=== PATIENT | male | born 1960 | race Caucasian/White ===

== ENCOUNTER → 2017-04-15 17:12 | Outpatient (CLI) | payer MEDICARE, MEDICAID, SELFPAY ==
[2017-04-15 18:45] LABS: Thyroid Stim Hormone (TSH) 4.71 uIU/mL (0.358-3.74)
== END ==
PROVIDERS: Family Provider Family Medicine Geriatric Medicine; PCP Family Medicine Geriatric Medicine; Visit Provider Family Medicine Geriatric Medicine
DX: E03.9 Hypothyroidism, unspecified (principal)
CPT/HCPCS: 36415; 84443

== ENCOUNTER → 2017-07-07 16:24 | Outpatient (CLI) | payer MEDICARE, MEDICAID, SELFPAY ==
[2017-07-07 18:01] LABS: Thyroid Stim Hormone (TSH) 1.25 uIU/mL (0.358-3.74)
== END ==
PROVIDERS: Family Provider Family Medicine Geriatric Medicine; PCP Family Medicine Geriatric Medicine; Visit Provider Family Medicine Geriatric Medicine
DX: E03.9 Hypothyroidism, unspecified (principal)
CPT/HCPCS: 36415; 84443

== ENCOUNTER → 2017-09-15 17:55 | Outpatient (CLI) | payer MEDICARE, MEDICAID, SELFPAY ==
[2017-09-15 18:02] LABS: Absolute Lymphocyte Count 2.25 X10^3/ul (0.83-4.51); Absolute Neutrophil Count 1.4 X10^3/uL (2.0-7.7); Basophil# 0.05 X10^3/uL; Basophil% 1.1 % (0-1); Eosinophil# 0.12 X10^3/uL; Eosinophils% 2.6 % (0-5); Hematocrit 43.3 % (40-54); Hemoglobin 14.9 g/dl (13.0-16.5); Lymphocyte # 2.25 X10^3/ul (4.0); Lymphocyte % 48.6 % (19-41); Mean Corp Hgb Conc 34.4 g/gl (32-36); Mean Corpuscular Hgb 37.7 pg (27.0-32.0); Mean Corpuscular Volume 109.6 fL (80-94); Mean Platelet Vol. 11.8 fl (6.2-12.0); Monocyte# 0.75 X10^3/uL; Monocyte% 16.2 % (0-10); Neutrophil # 1.44 X10^3/uL (2.7-7.7); Neutrophil % 31.1 % (47-70); Platelet Count 170 K/mm3 (150-450); RBC Distribution Width CV 13.7 % (11.6-14.6); RBC Distribution Width SD 54.3 fl (35.1-43.9); Red Blood Count 3.95 M/mm3 (4.6-6.2); White Blood Count 4.6 K/mm3 (4.4-11.0)
[2017-09-15 18:18] LABS: POSITIVE COUNT NO; POSITIVE DIFFERENTIAL NO; POSITIVE MORPHOLOGY NO
[2017-09-15 18:45] LABS: Valproic Acid (Depakene) Level 65 ug/mL (50-100)
[2017-09-15 18:54] LABS: ALB/GLOB Ratio 0.6 RATIO (0.9-2.4); AST(SGOT) 29 U/L (15-37); Alanine Aminotransfer ALT/SGPT 29 U/L (16-61); Albumin, Serum 2.9 g/dL (3.2-5.0); Alkaline Phosphatase 85 U/L (45-117); Anion Gap 5 (5-15); BUN 13 mg/dL (7-18); Calcium,Total 8.5 mg/dL (8.5-10.1); Chloride 103 mmol/L (98-107); Creatinine, Serum 0.81 mg/dL (0.70-1.30); EST Glomerular Filtration Rate 105 mL/min (>60); Est Glom Filt Rate - Afr Amer 127 mL/min (>60); Globulin 5.1 g/dL (2.2-4.2); Glucose 80 mg/dL (74-106); Potassium 4.5 mmol/L (3.5-5.1); Sodium Level 140 mmol/L (136-145); Thyroid Stim Hormone (TSH) 1.08 uIU/mL (0.358-3.74)
== END ==
PROVIDERS: Family Provider Family Medicine Geriatric Medicine; PCP Family Medicine Geriatric Medicine; Visit Provider Family Medicine Geriatric Medicine
DX: R53.83 Other fatigue (principal); F91.9 Conduct disorder, unspecified; N39.0 Urinary tract infection, site not specified
CPT/HCPCS: 36415; 80053; 80164; 84443; 85025; 87086

== ENCOUNTER → 2017-10-14 14:22 | Outpatient (CLI) | payer MEDICARE, MEDICAID, SELFPAY ==
[2017-10-14 17:40] LABS: Anion Gap 11 (5-15); BUN 12 mg/dL (7-18); BUN/Creat Ratio 15.6 RATIO (10-20); Calcium,Total 8.8 mg/dL (8.5-10.1); Chloride 104 mmol/L (98-107); Creatinine, Serum 0.77 mg/dL (0.70-1.30); EST Glomerular Filtration Rate 111 mL/min (>60); Est Glom Filt Rate - Afr Amer 135 mL/min (>60); Glucose 81 mg/dL (74-106); Potassium 4.2 mmol/L (3.5-5.1); Sodium Level 141 mmol/L (136-145)
[2017-10-14 19:38] LABS: Absolute Lymphocyte Count 2.01 X10^3/ul (0.83-4.51); Absolute Neutrophil Count 1.8 X10^3/uL (2.0-7.7); Basophil# 0.05 X10^3/uL; Basophil% 1.1 % (0-1); Eosinophil# 0.16 X10^3/uL; Eosinophils% 3.5 % (0-5); Hematocrit 42.5 % (40-54); Hemoglobin 14.3 g/dl (13.0-16.5); Lymphocyte # 2.01 X10^3/ul (4.0); Lymphocyte % 43.6 % (19-41); Mean Corp Hgb Conc 33.6 g/gl (32-36); Mean Corpuscular Hgb 37.7 pg (27.0-32.0); Mean Corpuscular Volume 112.1 fL (80-94); Mean Platelet Vol. 12.9 fl (6.2-12.0); Monocyte# 0.59 X10^3/uL; Monocyte% 12.8 % (0-10); Neutrophil # 1.76 X10^3/uL (2.7-7.7); Neutrophil % 38.1 % (47-70); Platelet Count 214 K/mm3 (150-450); RBC Distribution Width CV 13.7 % (11.6-14.6); RBC Distribution Width SD 54.3 fl (35.1-43.9); Red Blood Count 3.79 M/mm3 (4.6-6.2); White Blood Count 4.6 K/mm3 (4.4-11.0)
[2017-10-14 19:48] LABS: POSITIVE COUNT NO; POSITIVE DIFFERENTIAL NO; POSITIVE MORPHOLOGY NO
== END ==
PROVIDERS: Family Provider Family Medicine Geriatric Medicine; PCP Family Medicine Geriatric Medicine; Visit Provider Family Medicine Geriatric Medicine
DX: E86.0 Dehydration (principal)
CPT/HCPCS: 36415; 80048; 85025

== ENCOUNTER 2017-10-15 12:39 | Emergency (ER) | payer MEDICARE, MEDICAID, SELFPAY ==
[2017-10-15 12:40] VITALS: BP 106/72; PULSE 73; RESP 18; TEMP 36.8; O2SAT 86; O2SAT 91; BMI 35.3
[2017-10-15 12:52] VITALS: O2SAT 93
[2017-10-15 13:02] VITALS: PULSE 71; RESP 20
[2017-10-15] MEDS: Ipratropium/Albuterol Sulfate 3 ML AMPUL.NEB INHALATION (13:02)
[2017-10-15] MEDS: 0.9% Normal Saline 1,000 ML 1000 ML IV (13:18)
[2017-10-15 13:21] LABS: Absolute Lymphocyte Count 2.55 X10^3/ul (0.83-4.51); Absolute Neutrophil Count 3.2 X10^3/uL (2.0-7.7); Basophil# 0.07 X10^3/uL; Basophil% 1.1 % (0-1); Eosinophil# 0.07 X10^3/uL; Eosinophils% 1.1 % (0-5); Hematocrit 45.5 % (40-54); Lymphocyte # 2.55 X10^3/ul (4.0); Lymphocyte % 39.2 % (19-41); Mean Corpuscular Hgb 36.9 pg (27.0-32.0); Mean Corpuscular Volume 112.1 fL (80-94); Mean Platelet Vol. 12.2 fl (6.2-12.0); Monocyte# 0.63 X10^3/uL; Monocyte% 9.7 % (0-10); Neutrophil # 3.17 X10^3/uL (2.7-7.7); Neutrophil % 48.6 % (47-70); Platelet Count 238 K/mm3 (150-450); RBC Distribution Width CV 13.6 % (11.6-14.6); RBC Distribution Width SD 55.9 fl (35.1-43.9); Red Blood Count 4.06 M/mm3 (4.6-6.2); White Blood Count 6.5 K/mm3 (4.4-11.0)
[2017-10-15 13:26] LABS: POSITIVE COUNT NO; POSITIVE DIFFERENTIAL NO; POSITIVE MORPHOLOGY NO
[2017-10-15 13:34] LABS: ALB/GLOB Ratio 0.6 RATIO (0.9-2.4); AST(SGOT) 38 U/L (15-37); Alanine Aminotransfer ALT/SGPT 33 U/L (16-61); Alkaline Phosphatase 76 U/L (45-117); Anion Gap 5 (5-15); BUN 15 mg/dL (7-18); BUN/Creat Ratio 17.9 RATIO (10-20); Calcium,Total 9.2 mg/dL (8.5-10.1); Chloride 106 mmol/L (98-107); Creatinine, Serum 0.84 mg/dL (0.70-1.30); EST Glomerular Filtration Rate 101 mL/min (>60); Est Glom Filt Rate - Afr Amer 122 mL/min (>60); Globulin 5.4 g/dL (2.2-4.2); Glucose 90 mg/dL (74-106); Potassium 4.5 mmol/L (3.5-5.1); Protein, Total 8.4 g/dL (6.4-8.2); Sodium Level 145 mmol/L (136-145)
[2017-10-15 13:43] LABS: Squamous Epithelial Cells - UA 0 SEEN /hpf (0-5)
--- NOTE | 2017-10-15 13:50 | ED.VISSUMM ---
- ER Visit Summary Date of Service: 10/15/17 Chief Complaint: Cough, hypoxia History of Present Illness: The patient is a 57 M with history of Down syndrome and dementia presents to the emergency department with cough and hypoxia. The patient is currently at a assisted. The family states that he has been acting normally this week. They states that over the past 2 days, he has been a little more fatigued. Today, he was eating. He went to a coughing fit and seem to have choked. He then vomited. Shortly after, he was hypoxic with a pulse oxygenation in the mid 80s. He has no known history of underlying lung disease. He has no history of oxygen requirement. He is otherwise been acting normally. He has not had fever or chills. Physical Examination: Vital signs reviewed General: Well-nourished Head: Normocephalic, atraumatic Eyes: Pupils equal and reactive, extraocular muscles intact Neck, supple, no lymphadenopathy Heart: Regular rate and rhythm Respiratory: No distress, diminished with rhonchi in the bases Abdomen: Soft, nontender, nondistended, no peritoneal signs Back: Nontender Extremities: Nontender, no edema, no cords Skin: Normal color no rash Neuro: Alert, follows simple commands, will answer questions appropriately, Test Results: [] Emergency Department Course and Treatment: The patient was initially hypoxic on arrival requiring supplemental oxygen. He was given a nebulized breathing treatment. He was able to be weaned from the oxygen without issue. Screening labs are unremarkable. His x-ray does not show any focal infiltrate. I do have some suspicion he may likely have aspirated and has chemical pneumonitis. The patient was able to ambulate without an oxygen requirement. He is feeling at his baseline. At this time, I do feel that he is safe to be transferred back to his assisted. The family is comfortable with this plan of care. He will be kept on Augmentin for 7 days. Strict return precautions were given. The patient be discharged. Treatment Plan: [] Disposition: Discharge Impression: 1. Aspiration pneumonitis This note was generated with [employer] software. It may contain incorrect words, spelling, and punctuation that were not noted in review of the chart prior to signing ED Disposition - Plan for ED Patient: Chief Complaint: Cough Instructions: ED Dyspnea Shortness of Breath Prescriptions: Amox/Clav 400mg/5ml Susp [Augmentin Suspension 400mg/5ml] 800 mg PO BID #140 ml Referrals: Vijay Merritt Chi, MD [Primary Care Provider] -
[2017-10-15 13:59] LABS: Color, Urine Yellow (Yellow); Glucose, Dipstick Normal (Normal); Ketone-Dipstick 5 mg/dl (Negative); Leukocyte Esterase-Dipstick Negative /ul (Negative); Nitrite-Dipstick Negative (Negative); Occult Blood-Urine 25 /ul (Negative); Protein-Dipstick 15 mg/dl (Negative); Specific Gravity, Urine 1.015 (1.002-1.030); Urine Bilirubin Dipstick Negative (Negative); Urine Clarity Clear (Clear); Urine Urobilinogen 1 mg/dl (Normal); Urine pH 6.5 (5.0 - 8.0)
[2017-10-15 14:23] LABS: Bacteria 1+ /hpf (None Seen); Mucous, Urine 1+ /hpf (<or=2+); Red Blood Cells-Urine 5-10 SEEN /hpf (0-5); White Blood Cells 0-5 SEEN /hpf (0-5)
[2017-10-15 15:17] VITALS: BP 115/73; PULSE 98; RESP 18; O2SAT 96
[2017-10-15] MEDS: Amox/Clav 400mg/5ml Susp 800 MG PO (15:41)
[2017-10-15 16:16] VITALS: BP 118/80; PULSE 85; RESP 14; O2SAT 95
== END 2017-10-15 16:17 | disposition home or self-care (01) ==
PROVIDERS: Emergency Provider Emergency Medicine; Family Provider Family Medicine Geriatric Medicine; PCP Family Medicine Geriatric Medicine
DX: J69.0 Pneumonitis due to inhalation of food and vomit (principal); R09.02 Hypoxemia; F03.90 Unspecified dementia, unspecified severity, without behavioral disturbance, psychotic disturbance, mood disturbance, and anxiety; Q90.9 Down syndrome, unspecified; Z79.899 Other long term (current) drug therapy; Z87.891 Personal history of nicotine dependence
CPT/HCPCS: 71045; 80053; 81001; 83605; 85025; 87040; 94640; 96360; 96361; 99285; J7030; A4216

== ENCOUNTER → 2017-12-07 13:46 | Outpatient (CLI) | payer MEDICARE, MEDICAID, SELFPAY ==
--- NOTE | 2017-12-07 13:51 | RAD_ITS ---
STUDY: X-RAY - RIGHT KNEE REASON FOR EXAM: Male, 57 years old. Fall. TECHNIQUE: 3 view(s) of the knee. COMPARISON: None. FINDINGS: Normal visualized distal femur. Normal visualized proximal tibia and fibula. Normal proximal tibiofibular articulation. There is no acute fracture, dislocation or destructive osseous pathology. There is mild degenerative arthrosis of the medial femorotibial compartment. Normal lateral femorotibial compartment. There is mild degenerative arthrosis of the patellofemoral articulation. There is no demonstrated joint effusion. The soft tissue structures are unremarkable. RAD/Knee 4 or More Views IMPRESSION: Degenerative arthrosis. Electronically Signed: Sriram French DO at 22:29 EDT Tel [phone], Service support ,
--- NOTE | 2017-12-07 13:54 | RAD_ITS ---
STUDY: X-RAY - LEFT KNEE REASON FOR EXAM: Male, 57 years old. Fall. TECHNIQUE: 3 view(s) of the knee. COMPARISON: None. FINDINGS: Normal visualized distal femur. Normal visualized proximal tibia and fibula. Normal proximal tibiofibular articulation. There is no acute fracture, dislocation or destructive osseous pathology. There is mild degenerative arthrosis of the medial femorotibial compartment. Normal lateral femorotibial compartment. There is mild degenerative arthrosis of the patellofemoral articulation. There is a soft tissue prominence in the suprapatellar region suggesting a small volume joint effusion. The soft tissue structures are unremarkable. RAD/Knee 4 or More Views IMPRESSION: Mild arthrosis of the left knee without fracture or dislocation. There is a small suprapatellar joint effusion. Electronically Signed: Sriram French DO at 22:30 EDT Tel [phone], Service support ,
== END ==
PROVIDERS: Family Provider Family Medicine Geriatric Medicine; PCP Family Medicine Geriatric Medicine; Referring Provider Physician Assistant Surgical; Visit Provider Physician Assistant Surgical
DX: S80.01XA Contusion of right knee, initial encounter (principal); S80.02XA Contusion of left knee, initial encounter
CPT/HCPCS: 73564

== ENCOUNTER 2017-12-10 16:32 | Emergency (ER) | payer MEDICARE, MEDICAID, SELFPAY ==
[2017-12-10 16:33] VITALS: BP 115/72; PULSE 71; RESP 16; TEMP 37; O2SAT 92; BMI 39.0
--- NOTE | 2017-12-10 16:45 | RAD_ITS ---
STUDY: X-RAY - PELVIS REASON FOR EXAM: Male, 57 years old. Pelvis pain after falling. TECHNIQUE: One view of the pelvis was obtained. COMPARISON: None. FINDINGS: There is a non-specific bowel gas pattern. Normal visualized soft tissue structures. Normal bilateral iliac wings, sacroiliac joints and visualized sacrum. Normal visualized bilateral superior and inferior pubic rami. Normal pubic symphysis. Normal ischial tuberosities. Normal visualized right femoral head. Normal right acetabulum. Normal right hip joint. Normal visualized left femoral head. Normal left acetabulum. Normal left hip joint. RAD/Pelvis 1 or 2 Views IMPRESSION: Normal x-ray examination of the pelvis. Electronically Signed: Sienna Grissom MD at 17:44 EDT , Service support ,
--- NOTE | 2017-12-10 17:15 | RAD_ITS ---
STUDY: X-RAY - RIGHT FEMUR REASON FOR STUDY: Male, 57 years old. Right leg pain after falling. TECHNIQUE: Radiological exam, femur, minimum 2 views COMPARISON: None. FINDINGS: Normal visualized femur. Normal visualized soft tissue structure. There is no demonstrated fracture. RAD/Femur Min 2 Views IMPRESSION: Normal x-ray examination of the femur. Electronically Signed: Sienna Grissom MD at 17:48 EDT , Service support ,
--- NOTE | 2017-12-10 18:24 | ED.VISSUMM ---
- ER Visit Summary Date of Service: 12/10/17 Chief Complaint: Fall, right leg pain History of Present Illness: The patient is a 57 M who has a history of Down syndrome and dementia presents with increasing right leg pain after fall. Patient actually fell about 4 days ago. At that time, he landed on both of his knees. History is hard to gather from the patient given his Down syndrome. They went to urgent care. He had x-rays done of both knees which showed no acute fracture. Since that time, he has had a lot of pain and difficulty ambulating. He is been holding his right hip. He did not strike his head. There was no reported loss of consciousness. He is otherwise been in his normal state of health. Physical Examination: Exam is relatively unremarkable. The patient does have tenderness to palpation over the greater trochanter of the right hip into the right femur. There is some scant ecchymosis. His extension is preserved of the right knee. He does have some pain with logroll. His pulses were normal. Test Results: [] Emergency Department Course and Treatment: X-rays were obtained of the pelvis, hip, and femur. There is no evidence of acute fracture. Patient has normal pulses. Skin is intact. I do feel that his symptoms are secondary to contusion. After discussion with family, we are going to start anti-inflammatories. I did counseling program leader him that he may need outpatient physical therapy. They are comfortable with this plan of care. He will be discharged home. Treatment Plan: [] Disposition: Discharge Impression: 1. Right hip contusion status post fall This note was generated with [employer] dictation software. It may contain incorrect words, spelling, and punctuation that were not noted in review of the chart prior to signing ED Disposition - Plan for ED Patient: Chief Complaint: Fall Instructions: ED Mechanical Fall Prescriptions: Naproxen [Naprosyn] 500 mg PO BID PRN #20 tab Referrals: Vijay Merritt Chi, MD [Primary Care Provider] -
[2017-12-10 18:34] VITALS: BP 130/84; PULSE 101; RESP 18; O2SAT 96
== END 2017-12-10 18:40 | disposition home or self-care (01) ==
PROVIDERS: Emergency Provider Emergency Medicine; Family Provider Family Medicine Geriatric Medicine; PCP Family Medicine Geriatric Medicine
DX: S70.01XD Contusion of right hip, subsequent encounter (principal); W19.XXXD Unspecified fall, subsequent encounter; Q90.9 Down syndrome, unspecified; F03.90 Unspecified dementia, unspecified severity, without behavioral disturbance, psychotic disturbance, mood disturbance, and anxiety; M54.9 Dorsalgia, unspecified
CPT/HCPCS: 72170; 73552; 99283

== ENCOUNTER 2018-01-11 10:46 | Emergency (ER) | payer MEDICARE, MEDICAID, SELFPAY ==
[2018-01-11 10:47] VITALS: BP 118/74; PULSE 77; RESP 20; TEMP 36.6; O2SAT 95; BMI 29.9
--- NOTE | 2018-01-11 11:19 | VDLE_ITS ---
Reason For Study: LEG SWELLING RIGHT LEFT GSV is normal. GSV is normal. CFV is compressible, spontaneous, phasic, CFV is compressible, spontaneous, phasic, competent and demonstrates normal competent, and demonstrates normal augmentation. augmentation. FV is compressible, spontaneous, phasic, FV is compressible, spontaneous, phasic, competent and demonstrates normal competent and demonstrates normal augmentation. augmentation. POP V is compressible, spontaneous, phasic, POP V is compressible, spontaneous, phasic, competent and demonstrates normal competent and demonstrates normal augmentation. augmentation. T/P Trunk is compressible. T/P Trunk is compressible. PTV is compressible. PTV is compressible. RT PerV is compressible. LT PerV is compressible. Procedure Exam performed in department. A preliminary report was called and/or faxed to Dr. Cabrera. <> Interpretation Summary 1. bilateral no DVT or SVT 2. No deep or superficial reflux. Ordering Physician: Davi Cabrera Referring Physician: Vijay Merritt Chi Performed By: Radha Méndez RVT and Student
--- NOTE | 2018-01-11 11:30 | RAD_ITS ---
STUDY: X-RAY - LEFT TIBIA AND FIBULA REASON FOR EXAM: Male, 57 years old. Left lower leg swelling following a fall. TECHNIQUE: 2 view(s) of the tibia and fibula were obtained. COMPARISON: None. FINDINGS: Normal visualized tibia. Normal visualized fibula. Diffuse soft tissue swelling. RAD/Tibia & Fibula 2 Views IMPRESSION: Diffuse soft tissue swelling. Electronically Signed: Angel Huntley MD at 12:42 EST Tel [phone], Service support ,
--- NOTE | 2018-01-11 13:00 | ED.VISSUMM ---
- ER Visit Summary Date of Service: 01/11/18 Chief Complaint: [] Left leg swelling for a month History of Present Illness: The patient is a 57 M [] mother reports the patient has developmental delay dementia he has had some nonspecific left lower extremity swelling for months the ideology is unclear she went to an urgent care center and they sent her to the emergency department he has had no trauma no fever no cough no chest pain no history of DVT or PE, he is primarily wheelchair confined due to trouble walking at baseline she is concerned for DVT he had no fever no cough no shortness of breath his review of systems otherwise negative bowel bladder habits have been unchanged he has no history of CHF renal disease or disorder Physical Examination: [] 118/74, General, no distress resting comfortably HEENT is generally unremarkable The neck is supple no adenopathy Cardiovascular, regular rate and rhythm Lungs, clear bilateral Abdomen, soft nontender Extremities, no clubbing cyanosis symmetric edema to both lower extremities he has really no pain to palpation of his extremities Neurologic, awake alert answering questions appropriately moving all 4 extremities his neurologic exam is unchanged per the mother he has developmental delay he does not really respond well to answer questions and he is at his baseline Test Results: [] Emergency Department Course and Treatment: [] Treatment Plan: [] Disposition: [] Duplex scan bilaterally negative, x-ray left leg negative explained the above the patient need to follow with outpatient providers and she will do that and agrees with outpatient plan Impression: [] Lower extremity edema etiology unclear This note was generated with [employer] dictation software. It may contain incorrect words, spelling, and punctuation that were not noted in review of the chart prior to signing ED Disposition - Plan for ED Patient: Chief Complaint: Lower Extremity Injury Referrals: Vijay Merritt Chi, MD [Primary Care Provider] -
--- NOTE | 2018-01-11 13:02 | ED.DEP ---
ED Disposition - Plan for ED Patient: Chief Complaint: Lower Extremity Injury Instructions: ED Leg Swelling Bilateral Referrals: Vijay Merritt Chi, MD [Primary Care Provider] -
[2018-01-11 13:16] VITALS: BP 131/77; PULSE 62; RESP 15; O2SAT 98
--- OUTSIDE RECORDS SUMMARY | 2018-03-06 17:19 | XMS RPT_ITS ---
:1960 Author Organization OHIP Support Name Relationship Address Phone D Unavailable Unavailable Unavailable ISABEL DARCY Unavailable [address] + [place] [address] ABBIE, MORENA Unavailable [employer] + [address] [place] [address] D Unavailable Unavailable Unavailable DARCY HALL Unavailable [address] + [place] [address] ABBIE, MORENA Unavailable [facility] + [address] [place] [address] D Unavailable Unavailable Unavailable ISABEL, DARCY Unavailable [address] + [place] [address] ABBIE, MORENA Unavailable [facility] + [place] [address] D Unavailable Unavailable Unavailable ISABEL, DARCY Unavailable [address] + [place] [address] ABBIE, MORENA Unavailable [facility] + [place] [address] D Unavailable Unavailable Unavailable ISABEL, DARCY Unavailable [address] + [place] [address] ABBIE, MORENA Unavailable [facility] + [place] [address] D Unavailable Unavailable Unavailable ISABEL, DARCY Unavailable [address] + [place] [address] ABBIE, MORENA Unavailable [facility] + [place] [address] D Unavailable Unavailable Unavailable ISABEL, DARCY Unavailable [address] + [place] [address] ABBIE, MORENA Unavailable [facility] + [place] [address] D Unavailable Unavailable Unavailable ISABEL DARCY Unavailable [address] + [place] [address] ABBIE, MORENA Unavailable [facility] + [place] [address] D Unavailable Unavailable Unavailable HALL, DARCY Unavailable [address] + [place] [address] ABBIE, MORENA Unavailable [facility] + [place] [address] D Unavailable Unavailable Unavailable HALL, DARCY Unavailable [address] + [place] [address] ABBIE, MORENA Unavailable [facility] + [place] [address] D Unavailable Unavailable Unavailable HALL, DARCY Unavailable [address] + [place] [address] ABBIE, MORENA Unavailable [facility] + [place] [address] Care Team Providers Name Role Phone René, Vijay Chi Attending Unavailable René, Vijay Chi Primary Care Unavailable René, Vijay Chi Attending Unavailable René, Vijay Chi Primary Care Unavailable René, Vijay Chi Referring Unavailable René, Vijay Chi Attending Unavailable René, Vijay Chi Primary Care Unavailable René, Vijay Chi Attending Unavailable René, Vijay Chi Referring Unavailable René, Vijay Chi Primary Care Unavailable René, Vijay Chi Attending Unavailable René, Vijay Chi Referring Unavailable René, Vijay Chi Primary Care Unavailable René, Vijay Chi Attending Unavailable René, Vijay Chi Primary Care Unavailable René, Vijay Chi Primary Care Unavailable Tanner Deshpande Attending Unavailable Cricket Zepeda Attending Unavailable René, Vijay Chi Referring Unavailable Cricket Zepeda Attending Unavailable Duane Cricket Referring Unavailable René, Vijay Chi Primary Care Unavailable René, Vijay Chi Primary Care Unavailable Tanner Deshpande Attending Unavailable René, Vijay Chi Primary Care Unavailable Yaakov Cabrera Attending Unavailable PROBLEMS PROBLEMS DATE TYPE CONDITION / CODE ATTENDING STATUS SOURCE 12/07/2017 Unknown S80.01XA - DuaneTutuy Active [place] Contusion of Community right knee, Hospital initial encounter Repository / S80.01XA(ICD-10) 12/07/2017 Unknown S80.02XA - Cricket Zepeda Active [place] Contusion of left Community knee, initial Hospital encounter / Repository S80.02XA(ICD-10) 2017 Unknown R53.83 - Other René, Vijay Chi Active [facility] fatigue / Community R53.83(ICD-10) Hospital Repository 2017 Unknown N39.0 - Urinary René, Vijay Chi Active [place] tract infection, Community site not Hospital specified / Repository N39.0(ICD-10) 2017 Unknown F91.9 - Conduct René, Vijay Chi Active [facility] disorder, Community unspecified / Hospital F91.9(ICD-10) Repository 04/20/2017 Unknown E03.9 - René, Vijay Chi Active [place] Hypothyroidism, Community unspecified / Hospital E03.9(ICD-10) Repository 02/25/2017 Unknown Z13.89 - René, Vijay Chi Active [place] Encounter for Community screening for Hospital other disorder / Repository Z13.89(ICD-10) PROCEDURES PROCEDURES No Procedure Records FoundRESULTS RESULTS VENOUS DUPLEX LOWER Observed: 01/13/2018 Status: F Source: [place] EXTREMITY 8:25 AM [facility] REPOSITORY [facility] Cardiovascular Services [address] [place] [address] Venous Duplex - [facility] 01/11/18 1141 MR#: [id number] Acct: [id number] Name: THEO MYERS Rep #: [id number] : 1960 57 From: Rk Houston MD Attending Dr: Status: DEP ER Ordering Dr: Yaakov Cabrera MD Date: 01/11/18 Location: ED Sex: M C Admitted: Reason For Study: LEG SWELLING RIGHT LEFT GSV is normal. GSV is normal. CFV is compressible, spontaneous, phasic, CFV is compressible, spontaneous, phasic, competent and demonstrates normal competent, and demonstrates normal augmentation. augmentation. FV is compressible, spontaneous, phasic, FV is compressible, spontaneous, phasic, competent and demonstrates normal competent and demonstrates normal augmentation. augmentation. POP V is compressible, spontaneous, phasic, POP V is compressible, spontaneous, phasic, competent and demonstrates normal competent and demonstrates normal augmentation. augmentation. T/P Trunk is compressible. T/P Trunk is compressible. PTV is compressible. PTV is compressible. RT PerV is compressible. LT PerV is compressible. Procedure Exam performed in department. A preliminary report was called and/or faxed to Dr. Cabrera. <> Interpretation Summary 1. bilateral no DVT or SVT 2. No deep or superficial reflux. Ordering Physician: Davi Cabrera Referring Physician: Vijay Merritt Chi Performed By: Radha Méndez RVT and Student 01/13/18824 Date Rk Houston MD CC: MD Davi Cabrera; Vijay Merritt MD Date Dictated: 01/11/18 1141 Date Transcribed: 01/13/18824 Asphalt Screed Operator: Signed EMERGENCY DEPARTMENT Observed: 01/11/2018 Status: F Source: [place] SUMMARY 4:21 PM [facility] REPOSITORY [facility] Medical Records Department [address] [place] [address] Emergency Department Summary 01/11/18 1300 MR#: [id number] Acct: [id number] Name: LUCIATHEO Jane Rep #: [id number] : 1960 57 From: Yaakov Cabrera MD PCP: Vijay Merritt MD, Chi Status: DEP ER - ER Visit Summary Date of Service: 01/11/18 Chief Complaint: [] Left leg swelling for a month History of Present Illness: The patient is a 57 M [] mother reports the patient has developmental delay dementia he has had some nonspecific left lower extremity swelling for months the ideology is unclear she went to an urgent care center and they sent her to the emergency department he has had no trauma no fever no cough no chest pain no history of DVT or PE, he is primarily wheelchair confined due to trouble walking at baseline she is concerned for DVT he had no fever no cough no shortness of breath his review of systems otherwise negative bowel bladder habits have been unchanged he has no history of CHF renal disease or disorder Physical Examination: [] 118/74, General, no distress resting comfortably HEENT is generally unremarkable The neck is supple no adenopathy Cardiovascular, regular rate and rhythm Lungs, clear bilateral Abdomen, soft nontender Extremities, no clubbing cyanosis symmetric edema to both lower extremities he has really no pain to palpation of his extremities Neurologic, awake alert answering questions appropriately moving all 4 extremities his neurologic exam is unchanged per the mother he has developmental delay he does not really respond well to answer questions and he is at his baseline Test Results: [] Emergency Department Course and Treatment: [] Treatment Plan: [] Disposition: [] Duplex scan bilaterally negative, x-ray left leg negative explained the above the patient need to follow with outpatient providers and she will do that and agrees with outpatient plan Impression: [] Lower extremity edema etiology unclear This note was generated with Scutum dictation software. It may contain incorrect words, spelling, and punctuation that were not noted in review of the chart prior to signing ED Disposition - Plan for ED Patient: Chief Complaint: Lower Extremity Injury Referrals: Vijay Merritt Chi, MD [Primary Care Provider] - What to do if you have Problems For any increased pain, shortness of breath, bleeding, nausea or vomiting, chest pain, or any unexpected problems, contact your Primary Care Provider. Call [facility] ([phone]) or report to the closest Emergency Room. Call 911 if necessary. 01/11/18 1621 <Electronically signed by Yaakov Cabrera MD> Date Yaakov Cabrera MD Cosigner Signature (If Indicated): Date CC: Vijay Merritt MD DISCHARGE INSTRUCTION Observed: 01/11/2018 Status: F Source: [place] 1:03 PM [facility] Medical Records Department [address] [place] [address] Discharge Instruction 01/11/18 1302 MR#: [id number] Acct: [id number] Name: THEO MYERS Jane Rep #: [id number] : 1960 57 From: Yaakov Cabrera MD PCP: Vijay Merritt MD, Chi Status: REG ER ED Disposition - Plan for ED Patient: Chief Complaint: Lower Extremity Injury Instructions: ED Leg Swelling Bilateral Referrals: Vijay Merritt Chi, MD [Primary Care Provider] - What to do if you have Problems For any increased pain, shortness of breath, bleeding, nausea or vomiting, chest pain, or any unexpected problems, contact your Primary Care Provider. Call [facility] ([phone]) or report to the closest Emergency Room. Call 911 if necessary. 01/11/18 1303 <Electronically signed by Yaakov Cabrera MD> Date Yaakov Cabrera MD Cosigner Signature (If Indicated): Date CC: Vijay Merritt MD TIBIA AND FIBULA Observed: 01/11/2018 Status: F Source: [place] 2 VIEWS 11:24 AM [facility] Imaging Services [address] [place] [address] Tibia AND Fibula 2 Views MR#: [id number] Acct: [id number] Name: THEO MYERS Rep #: [id number] : 1960 M 57 From: Angel Huntley MD PCP: Vijay Merritt MD, Chi Status: REG ER Study: Tibia AND Fibula 2 Views Date of Exam: 01/11/18 Exam# [id number] Ordering Dr: Yaakov Cabrera MD STUDY: X-RAY - LEFT TIBIA AND FIBULA REASON FOR EXAM: Male, 57 years old. Left lower leg swelling following a fall. TECHNIQUE: 2 view(s) of the tibia and fibula were obtained. COMPARISON: None. FINDINGS: Normal visualized tibia. Normal visualized fibula. Diffuse soft tissue swelling. RAD/Tibia AND Fibula 2 Views IMPRESSION: Diffuse soft tissue swelling. Electronically Signed: Angel Huntley MD at 12:42 EST Tel [phone], Service support , CC: MD Davi Cabrera; Vijay Merritt MD Asphalt Screed Operator: Signed EMERGENCY DEPARTMENT Observed: 12/10/2017 Status: F Source: [place] SUMMARY 10:28 PM [facility] REPOSITORY [facility] Medical Records Department [address] [place] [address] Emergency Department Summary 12/10/17 1824 MR#: [id number] Acct: [id number] Name: THEO MEYRS Rep #: [id number] : 1960 57 From: Tanner Deshpande MD PCP: Vijay Merritt MD, Chi Status: DEP ER - ER Visit Summary Date of Service: 12/10/17 Chief Complaint: Fall, right leg pain History of Present Illness: The patient is a 57 M who has a history of Down syndrome and dementia presents with increasing right leg pain after fall. Patient actually fell about 4 days ago. At that time, he landed on both of his knees. History is hard to gather from the patient given his Down syndrome. They went to urgent care. He had x-rays done of both knees which showed no acute fracture. Since that time, he has had a lot of pain and difficulty ambulating. He is been holding his right hip. He did not strike his head. There was no reported loss of consciousness. He is otherwise been in his normal state of health. Physical Examination: Exam is relatively unremarkable. The patient does have tenderness to palpation over the greater trochanter of the right hip into the right femur. There is some scant ecchymosis. His extension is preserved of the right knee. He does have some pain with logroll. His pulses were normal. Test Results: [] Emergency Department Course and Treatment: X-rays were obtained of the pelvis, hip, and femur. There is no evidence of acute fracture. Patient has normal pulses. Skin is intact. I do feel that his symptoms are secondary to contusion. After discussion with family, we are going to start anti-inflammatories. I did senior counsel commercial him that he may need outpatient physical therapy. They are comfortable with this plan of care. He will be discharged home. Treatment Plan: [] Disposition: Discharge Impression: 1. Right hip contusion status post fall This note was generated with waygumation software. It may contain incorrect words, spelling, and punctuation that were not noted in review of the chart prior to signing ED Disposition - Plan for ED Patient: Chief Complaint: Fall Instructions: ED Mechanical Fall Prescriptions: Naproxen [Naprosyn] 500 mg PO BID PRN #20 tab Referrals: Vijay Merritt Chi, MD [Primary Care Provider] - What to do if you have Problems For any increased pain, shortness of breath, bleeding, nausea or vomiting, chest pain, or any unexpected problems, contact your Primary Care Provider. Call [facility] ([phone]) or report to the closest Emergency Room. Call 911 if necessary. 12/10/177 <Electronically signed by Tanner Deshpande MD> Date Tanner Deshpande MD Cosigner Signature (If Indicated): Date CC: Vijay Merritt MD PELVIS 1 OR 2 VIEWS Observed: 12/10/2017 Status: F Source: [place] 4:45 PM [facility] REPOSITORY [facility] Imaging Services [facility] [place] [address] Pelvis 1 or 2 Views MR#: [id number] Acct: [id number] Name: THEO MYERS Rep #: [id number] : 1960 M 57 From: Sienna Grissom MD PCP: Vijay Merritt MD, Chi Status: PRE ER Study: Pelvis 1 or 2 Views Date of Exam: 12/10/17 Exam# [id number] Ordering Dr: Tanner Deshpande MD STUDY: X-RAY - PELVIS REASON FOR EXAM: Male, 57 years old. Pelvis pain after falling. TECHNIQUE: One view of the pelvis was obtained. COMPARISON: None. FINDINGS: There is a non-specific bowel gas pattern. Normal visualized soft tissue structures. Normal bilateral iliac wings, sacroiliac joints and visualized sacrum. Normal visualized bilateral superior and inferior pubic rami. Normal pubic symphysis. Normal ischial tuberosities. Normal visualized right femoral head. Normal right acetabulum. Normal right hip joint. Normal visualized left femoral head. Normal left acetabulum. Normal left hip joint. RAD/Pelvis 1 or 2 Views IMPRESSION: Normal x-ray examination of the pelvis. Electronically Signed: Sienna Grissom MD at 17:44 EDT , Service support , CC: Tanner Deshpande MD; Vijay Merritt MD Asphalt Screed Operator: Signed FEMUR MIN 2 VIEWS Observed: 12/10/2017 Status: F Source: [place] 4:45 PM [facility] REPOSITORY [facility] Imaging Services [address] [place] [address] Femur Min 2 Views MR#: [id number] Acct: [id number] Name: THEO MYERS Rep #: [id number] : 1960 M 57 From: Sienna Grissom MD PCP: Vijay Merritt MD, Chi Status: PRE ER Study: Femur Min 2 Views Date of Exam: 12/10/17 Exam# [id number] Ordering Dr: Tanner Deshpande MD STUDY: X-RAY - RIGHT FEMUR REASON FOR STUDY: Male, 57 years old. Right leg pain after falling. TECHNIQUE: Radiological exam, femur, minimum 2 views COMPARISON: None. FINDINGS: Normal visualized femur. Normal visualized soft tissue structure. There is no demonstrated fracture. RAD/Femur Min 2 Views IMPRESSION: Normal x-ray examination of the femur. Electronically Signed: Sienna Grissom MD at 17:48 EDT , Service support , CC: Tanner Deshpadne MD; Vijay Merritt MD Asphalt Screed Operator: Signed URGENT CARE VISIT Observed: 12/07/2017 Status: F Source: [place] REPORT 5:56 PM [facility] REPOSITORY [facility] [address] [place] [address] [address] [place] [address] OFFICE VISIT Date of Service: 12/07/17 MR#: [id number] Acct: [id number] Name: THEO MYERS Rep #: [id number] : 1960 Provider: Cricket ARIAS Age/Sex: 57/M [place] [facility] [place] [place]: Signed Intake Vital Signs12/07/17 Height 5 ft 4 in Intake Visit Reasons: PT FELL/ KNEE ABRASIONS/ Allergies No Known Allergies Allergy (Verified 12/07/17 13:37) Medications Divalproex Sodium [Depakote] 500 mg PO BID 10/15/17 [History Confirmed 12/07/17] Docusate Sodium [Colace] 100 mg PO DAILY 10/15/17 [History Confirmed 12/07/17] Iron/Mv,Stress Form [Stress Formula with Iron Tab] 1 tab PO DAILY 10/15/17 [History Confirmed 12/07/17] Levothyroxine [Synthroid] 137 mcg PO DAILY 10/15/17 [History Confirmed 12/07/17] Memantine HCl [Memantine HCl ER] 28 mg PO DAILY 10/15/17 [History Confirmed 12/07/17] Paroxetine HCl [Paxil] 40 mg PO DAILY 10/15/17 [History Confirmed 12/07/17] Pravastatin Sodium 20 mg PO QHS 10/15/17 [History Confirmed 12/07/17] Rivastigmine 4.6 mg Patch [Exelon Patch 4.6mg] 1 ea TRANSDERM. Q24H 10/15/17 [History Confirmed 12/07/17] Sodium Chloride [Arlyn-128 5%] 1 applic RIGHT EYE BID 10/15/17 [History Confirmed 12/07/17] Timolol 0.5% [Timoptic] 1 applic RIGHT EYE BID 10/15/17 [History Confirmed 12/07/17] miconazole nitrate 2 % topical powder 1 applic TOPICAL DAILY 12/07/17 [History Confirmed 12/07/17] tolnaftate 1 % topical spray powder 1 spray TOPICAL DAILY 12/07/17 [History Confirmed 12/07/17] vitamin A and D topical ointment 1 applic TOPICAL QHS 12/07/17 [History Confirmed 12/07/17] PFSH Medical History Difficulty balancing (Acute) Fatigue (Acute) Incontinence (Acute) Knee pain (Acute) Limb weakness (Acute) Seasonal allergies (Acute) Thyroid disease (Acute) Social History Smoking Status: Never smoker HPI HPI Details: THEO MYERS, is a 57 M who presents to the office today for complaint of bilateral knee pain after an unwitnessed fall this morning. The caregivers of the patient states that he had an unwitnessed fall however she believes that he landed on his bottom. He then later was unable to ambulate out of the transport vehicle without assistance. The caregiver does also state that he has had complaints of bilateral knee pain with very minimal abrasions to both anterior knees. Patient is unable to describe or localize the pain. He does have full sensation and range of motion. No other associated symptoms or alleviating/aggravating factors. ROS Const Constitutional: No chills, fever(s), abnormal sleep pattern or fatigue Musc Musculoskeletal: Positive for joint pain and abnormal walking; no limited range of motion, tingling or numbness Skin Skin: No wounds or lesions Neuro Neurology: Positive for abnormal walking; no tingling, numbness, behavioral changes or confusion Psych Psychiatric: No behavioral changes, No confusion, No abnormal sleep pattern Endo Endocrine: No fatigue Exam Const General: cooperative, healthy appearing Musc Musculoskeletal: Yes joint tenderness; no joint redness, joint warmth or decreased ROM Skin Other: Very minimal erythema to anterior bilateral knees with no break in the skin or ecchymosis. Neuro General: alert, CN's II-XI intact bilaterally Extrem General: full ROM, normal capillary refill, normal exam except as noted, no joint enlargement Other: Negative anterior posterior drawer sign with normal patellar laxity. Patient does show tenderness to palpation over several areas however is inconsistent with his reports. Psych Appearance: grossly normal Mental Status: other (MRDD) Mood: other (MRDD) Assessment AND Plan Problems 1. Contusion of right knee, initial encounter S80.01XA 2. Contusion of left knee, initial encounter S80.02XA Plan X-ray of bilateral knees with no evidence of osseous abnormalities other than chronic arthritic changes. Awaiting radiology interpretation at time of dictation. Advised to regularly give patient ibuprofen 6-800 mg every 6-8 hours for the next several days and to use rest, ice, compression and elevation of the legs. Advised to follow- up with PCP in 7-10 days if no better or sooner if worse. No other associated symptoms or alleviating/aggravating factors. Orders Orders: Medications New: Coding Level of Care Code Off vis,new,level 4 Diagnoses Contusion of right knee, initial encounter S80.01XA Encounter type: initial encounter Laterality: right Contusion of left knee, initial encounter S80.02XA 12/07/17 9192 <Electronically signed by Cricket ARIAS> Date Cricket ARIAS Cosigner Signature: Date (if applicable) CC: KNEE 4 OR MORE Observed: 12/07/2017 Status: F Source: [place] VIEWS 1:54 PM [facility] REPOSITORY [facility] Imaging Services [address] [place] [address] Knee 4 or More Views MR#: [id number] Acct: [id number] Name: THEO MYERS Rep #: [id number] : 1960 M 57 From: Sriram French DO PCP: Vijay Merritt MD, Chi Status: REG CLI Study: Knee 4 or More Views Date of Exam: 12/07/17 Exam# [id number] Ordering Dr: Cricket Zepeda STUDY: X-RAY - LEFT KNEE REASON FOR EXAM: Male, 57 years old. Fall. TECHNIQUE: 3 view(s) of the knee. COMPARISON: None. FINDINGS: Normal visualized distal femur. Normal visualized proximal tibia and fibula. Normal proximal tibiofibular articulation. There is no acute fracture, dislocation or destructive osseous pathology. There is mild degenerative arthrosis of the medial femorotibial compartment. Normal lateral femorotibial compartment. There is mild degenerative arthrosis of the patellofemoral articulation. There is a soft tissue prominence in the suprapatellar region suggesting a small volume joint effusion. The soft tissue structures are unremarkable. RAD/Knee 4 or More Views IMPRESSION: Mild arthrosis of the left knee without fracture or dislocation. There is a small suprapatellar joint effusion. Electronically Signed: Sriram French DO at 22:30 EDT Tel [phone], Service support , CC: Cricket ARIAS; Vijay Merritt MD Asphalt Screed Operator: Signed KNEE 4 OR MORE Observed: 12/07/2017 Status: F Source: [place] VIEWS 1:51 PM [facility] REPOSITORY [facility] Imaging Services [address] [place] [address] Knee 4 or More Views MR#: [id number] Acct: [id number] Name: THEO MYERS Jane Rep #: [id number] : 1960 M 57 From: Sriram French DO PCP: Vijay Merritt MD, Chi Status: REG CLI Study: Knee 4 or More Views Date of Exam: 12/07/17 Exam# [id number] Ordering Dr: Cricket Zepeda STUDY: X-RAY - RIGHT KNEE REASON FOR EXAM: Male, 57 years old. Fall. TECHNIQUE: 3 view(s) of the knee. COMPARISON: None. FINDINGS: Normal visualized distal femur. Normal visualized proximal tibia and fibula. Normal proximal tibiofibular articulation. There is no acute fracture, dislocation or destructive osseous pathology. There is mild degenerative arthrosis of the medial femorotibial compartment. Normal lateral femorotibial compartment. There is mild degenerative arthrosis of the patellofemoral articulation. There is no demonstrated joint effusion. The soft tissue structures are unremarkable. RAD/Knee 4 or More Views IMPRESSION: Degenerative arthrosis. Electronically Signed: Sriram French DO at 22:29 EDT Tel [phone], Service support , CC: Cricket ARIAS; Vijay Merritt MD Asphalt Screed Operator: Signed EMERGENCY DEPARTMENT Observed: 10/15/2017 Status: F Source: [place] SUMMARY 3:48 PM [facility] REPOSITORY [facility] Medical Records Department [address] [place] [address] Emergency Department Summary 10/15/17 1350 MR#: [id number] Acct: [id number] Name: THEO MYERS Rep #: [id number] : 1960 57 From: Tanner Deshpande MD PCP: Vijay Merritt MD, Chi Status: REG ER - ER Visit Summary Date of Service: 10/15/17 Chief Complaint: Cough, hypoxia History of Present Illness: The patient is a 57 M with history of Down syndrome and dementia presents to the emergency department with cough and hypoxia. The patient is currently at a half-way. The family states that he has been acting normally this week. They states that over the past 2 days, he has been a little more fatigued. Today, he was eating. He went to a coughing fit and seem to have choked. He then vomited. Shortly after, he was hypoxic with a pulse oxygenation in the mid 80s. He has no known history of underlying lung disease. He has no history of oxygen requirement. He is otherwise been acting normally. He has not had fever or chills. Physical Examination: Vital signs reviewed General: Well-nourished Head: Normocephalic, atraumatic Eyes: Pupils equal and reactive, extraocular muscles intact Neck, supple, no lymphadenopathy Heart: Regular rate and rhythm Respiratory: No distress, diminished with rhonchi in the bases Abdomen: Soft, nontender, nondistended, no peritoneal signs Back: Nontender Extremities: Nontender, no edema, no cords Skin: Normal color no rash Neuro: Alert, follows simple commands, will answer questions appropriately, Test Results: [] Emergency Department Course and Treatment: The patient was initially hypoxic on arrival requiring supplemental oxygen. He was given a nebulized breathing treatment. He was able to be weaned from the oxygen without issue. Screening labs are unremarkable. His x-ray does not show any focal infiltrate. I do have some suspicion he may likely have aspirated and has chemical pneumonitis. The patient was able to ambulate without an oxygen requirement. He is feeling at his baseline. At this time, I do feel that he is safe to be transferred back to his half-way. The family is comfortable with this plan of care. He will be kept on Augmentin for 7 days. Strict return precautions were given. The patient be discharged. Treatment Plan: [] Disposition: Discharge Impression: 1. Aspiration pneumonitis This note was generated with Scutum dictation software. It may contain incorrect words, spelling, and punctuation that were not noted in review of the chart prior to signing ED Disposition - Plan for ED Patient: Chief Complaint: Cough Instructions: ED Dyspnea Shortness of Breath Prescriptions: Amox/Clav 400mg/5ml Susp [Augmentin Suspension 400mg/5ml] 800 mg PO BID #140 ml Referrals: Vijay Merritt Chi, MD [Primary Care Provider] - What to do if you have Problems For any increased pain, shortness of breath, bleeding, nausea or vomiting, chest pain, or any unexpected problems, contact your Primary Care Provider. Call [facility] ([phone]) or report to the closest Emergency Room. Call 911 if necessary. 10/15/17 1540 <Electronically signed by Tanner Deshpande MD> Date Tanner Deshpande MD Cosigner Signature (If Indicated): Date CC: Vijay Merritt MD Observed: 10/15/2017 Status: F Source: LUCAS CULTURE, BLOOD (WB) 1:35 PM [facility] REPOSITORY BC No growth in 5 days. Performed By: #### M200.1000 #### [facility] [address] [place], [address] URINALYSIS, COMPLETE Collected: 10/15/2017 Status: F Source: CARY 1:30 PM [facility] REPOSITORY Order Comment: How was Urine Obtained? PUBLIC SERVICE OFFICER TO SPECIFY TYPE CODE TESTS RESULT OUT OF RANGE REFERENCE UNITS LAB L400.3000 Yellow COLOR Normal Yellow LAB L400.3050 Clear Normal CLARITY Clear LAB L400.3200 Normal mg/dl Normal GLUCOSE, UR Normal LAB L400.3300 Negative mg/dL Normal BILIRUBIN URINE Negative LAB L400.3400 Negative mg/dl High 5 KETONE UR LAB L400.3465 1.002-1.030 Normal SP.GR. DIPSTX 1.015 LAB L400.3550 5.0 - 8.0 pH UR Normal 6.5 LAB L400.3600 Negative mg/dl High PROT 15 DIPSTX LAB L400.3700 Normal mg/dl High 1 UROBILI LAB L400.3750 Negative Normal NITRITE UR Negative LAB L400.3780 Negative /ul High 25 OCCULT BLOOD-UR LAB L400.3800 Negative /ul LEUK Normal ESTERASE Negative LAB L400.4050 0-5 /hpf WBC Normal 0-5 SEEN LAB L400.4100 0-5 /hpf Normal RBC-UA 5-10 SEEN LAB L400.4150 0-5 /hpf SQUAM 0 Normal EPI SEEN LAB L400.4300 None Seen /hpf 1+ Normal BACTERIA LAB L400.4350 <or=2+ /hpf 1+ Normal MUCUS, URINE Performed By: #### L400.0001 #### [facility] [address] [place], [place], [id number] CBC W/DIFF, AUTOMATED Collected: 10/15/2017 Status: F Source: CARY 1:05 PM [facility] REPOSITORY TYPE CODE TESTS RESULT OUT OF RANGE REFERENCE UNITS LAB L100.1000 4.4-11.0 K/mm3 Normal WBC 6.5 LAB L100.1200 4.6-6.2 M/mm3 Low RBC 4.06 LAB L100.1300 13.0-16.5 g/dl Normal HGB 15.0 LAB L100.1400 40-54 % Normal HCT 45.5 LAB L100.1500 80-94 fL High MCV 112.1 LAB L100.1600 27.0-32.0 pg High MCH 36.9 LAB L100.1700 32-36 g/gl Normal MCHC 33.0 LAB L100.1810 11.6-14.6 % Normal RDW CV 13.6 LAB L100.1820 35.1-43.9 fl High RDW SD 55.9 LAB L100.1900 150-450 K/mm3 Normal PLT 238 LAB L100.2000 6.2-12.0 fl High MPV 12.2 LAB L100.2100 47-70 % Normal NEUT% 48.6 LAB L100.2200 19-41 % Normal LY% 39.2 LAB L100.2300 0-10 % Normal MONO% 9.7 LAB L100.2400 0-5 % Normal EO% 1.1 LAB L100.2500 0-1 % High BASO% 1.1 LAB L100.2550 0.0-0.9 % Normal IM GRAN % 0.300 Result Comment: IG% - Immature Granulocytes (promyelocytes, myelocytes and metamyelocytes) > 1% indicates that a LEFT SHIFT is Present. LAB L100.2620 2.0-7.7 X10 3/uL Normal Absolute Neut 3.2 LAB L100.2720 0.83-4.51 X10 3/ul Normal Absolute Lymph 2.55 Performed By: #### L100.0100 #### [facility] [address] [place], [place], [address] COMPREHENSIVE METABOLIC Collected: 10/15/2017 Status: F Source: LUCAS CORONADO 1:05 PM [facility] REPOSITORY TYPE CODE TESTS RESULT OUT OF RANGE REFERENCE UNITS LAB L501.0100 74-106 mg/dL Normal GLU 90 Result Comment: Please note revised GLUCOSE reference range effective 2017. LAB L501.1000 7-18 mg/dL Normal BUN 15 LAB L501.1100 0.70-1.30 mg/dL Normal CREAT,SERUM 0.84 Result Comment: The validity of the calculated GFR AND GFRAA in patients over 70 years has not been determined. Clinical correlation is essential. LAB L501.1110 >60 mL/min Normal EST GFR 101 Result Comment: Non- GFR Calc LAB L501.1115 >60 mL/min Normal EST GFR - AA 122 Result Comment: GFR Calc LAB L501.1255 ml/min Normal Estimated CRCL 73.50 LAB L501.1300 10-20 RATIO Normal BUN/CRE 17.9 LAB L501.1500 6.4-8. g/dL High 2 T PROT 8.4 LAB L501.1800 3.2-5. g/dL Low 0 ALB 3.0 LAB L501.1950 2.2-4. g/dL High 2 GLOB 5.4 LAB L501.2000 0.9-2. RATIO Low 4 A/G 0.6 LAB L501.2200 8.5-10 mg/dL Normal .1 CA 9.2 LAB L501.4100 15-37 U/L High AST 38 LAB L501.4305 45-117 U/L Normal ALK P 76 LAB L501.4405 16-61 U/L Normal ALT 33 LAB L501.4600 0.20-1 mg/dL Normal .00 T BILI 0.30 LAB L501.5300 136-14 mmol/L Normal 5 NA 145 LAB L501.5600 3.5-5. mmol/L Normal 1 K 4.5 LAB L501.5900 98-107 mmol/L Normal CL 106 LAB L501.6100 21.0-3 mmol/L High 2.0 CO2 34.0 LAB L501.6200 5-15 Normal GAP 5 Performed By: #### L500.4050 #### [facility] [address] [facility] [place], [address] LACTIC ACID Collected: 10/15/2017 Status: F Source: LUCAS 1:05 PM [facility] REPOSITORY Order Comment: Yes/No query for Sepsis Lactate Rule Y TYPE CODE TESTS RESULT OUT OF RANGE REFERENCE UNITS LAB L503.6005 0.4-2.0 mmol/L Normal LACTIC ACID 1.0 Performed By: #### L503.6005 #### [facility] [address] [facility] [place], [address] Observed: 10/15/2017 Status: F Source: LUCAS CULTURE, BLOOD (WB) 1:05 PM [facility] REPOSITORY BC No growth in 5 days. Performed By: #### M200.1000 #### [facility] [address] [facility] [place], [address] CHEST 1 VIEW Observed: 10/15/2017 Status: F Source: LUCAS (PORTABLE) 12:48 PM [facility] REPOSITORY [facility] Imaging Services [address] [place] [address] Chest 1 View (Portable) MR#: [id number] Acct: [id number] Name: THEO MYERS Rep #: [id number] : 1960 M 57 From: Angel Huntley MD PCP: René MAR,Vijay Chi Status: REG ER Study: Chest 1 View (Portable) Date of Exam: 10/15/17 Exam# [id number] Ordering Dr: Tanner Deshpande MD STUDY: X-RAY CHEST REASON FOR EXAM: Male, 57 years old. Fatigue and productive cough. TECHNIQUE: Single AP portable view of the chest. COMPARISON: Comparison is made with prior study dated June 29, 2014. FINDINGS: EKG electrodes are seen. Mild increased markings at the lung bases slightly more prominent on the left side suggestive of bibasilar atelectasis. Blunting of left costophrenic angle. Follow-up is recommended. Normal size heart. Normal mediastinum and humberto. Normal visualized pulmonary arteries. Normal visualized aortic arch and descending thoracic aorta. Normal visualized thoracic spine. Normal visualized ribs, clavicles, and shoulders. There is no demonstrated abnormality of the visualized soft tissue structures of the upper abdomen. RAD/Chest 1 View (Portable) IMPRESSION: Increased markings at the lung bases worse on the left side with blunting of left costophrenic angle. Follow-up is recommended. Electronically Signed: Angel Huntley MD at 13:51 EDT Tel [phone], Service support , CC: Tanner Deshpande MD; Vijay Merritt MD Asphalt Screed Operator: Signed BASIC METABOLIC Collected: 10/14/2017 Status: F Source: LUCAS PROFILE (BMP) 2:23 PM [facility] REPOSITORY TYPE CODE TESTS RESULT OUT OF RANGE REFERENCE UNITS LAB L501.0100 74-106 mg/dL Normal GLU 81 Result Comment: Please note revised GLUCOSE reference range effective 2017. LAB L501.1000 7-18 mg/dL Normal BUN 12 LAB L501.1100 0.70-1.30 mg/dL Normal CREAT,SERUM 0.77 Result Comment: The validity of the calculated GFR AND GFRAA in patients over 70 years has not been determined. Clinical correlation is essential. LAB L501.1110 >60 mL/min Normal EST GFR 111 Result Comment: Non- GFR Calc LAB L501.1115 >60 mL/min Normal EST GFR - AA 135 Result Comment: GFR Calc LAB L501.1300 10-20 RATIO Normal BUN/CRE 15.6 LAB L501.2200 8.5-10.1 mg/dL CA Normal 8.8 LAB L501.5300 136-145 mmol/L NA Normal 141 LAB L501.5600 3.5-5.1 mmol/L K Normal 4.2 Result Comment: Slight Hemolysis, Result may be falsely increased. LAB L501.5900 98-107 mmol/L Normal CL 104 LAB L501.6100 21.0-32.0 mmol/L Normal CO2 26.0 LAB L501.6200 5-15 Normal GAP 11 Performed By: #### L500.2500 #### [facility] [address] [place], [address] CBC W/DIFF, AUTOMATED Collected: 10/14/2017 Status: F Source: LUCAS 2:23 PM [facility] REPOSITORY TYPE CODE TESTS RESULT OUT OF RANGE REFERENCE UNITS LAB L100.1000 4.4-11.0 K/mm3 Normal WBC 4.6 LAB L100.1200 4.6-6.2 M/mm3 Low RBC 3.79 LAB L100.1300 13.0-16.5 g/dl Normal HGB 14.3 LAB L100.1400 40-54 % Normal HCT 42.5 LAB L100.1500 80-94 fL High MCV 112.1 LAB L100.1600 27.0-32.0 pg High MCH 37.7 LAB L100.1700 32-36 g/gl Normal MCHC 33.6 LAB L100.1810 11.6-14.6 % Normal RDW CV 13.7 LAB L100.1820 35.1-43.9 fl High RDW SD 54.3 LAB L100.1900 150-450 K/mm3 Normal PLT 214 LAB L100.2000 6.2-12.0 fl High MPV 12.9 LAB L100.2100 47-70 % Low NEUT% 38.1 LAB L100.2200 19-41 % High LY% 43.6 LAB L100.2300 0-10 % High MONO% 12.8 LAB L100.2400 0-5 % Normal EO% 3.5 LAB L100.2500 0-1 % High BASO% 1.1 LAB L100.2550 0.0-0.9 % Normal IM GRAN % 0.900 Result Comment: IG% - Immature Granulocytes (promyelocytes, myelocytes and metamyelocytes) > 1% indicates that a LEFT SHIFT is Present. LAB L100.2620 2.0-7.7 X10 3/uL Low Absolute Neut 1.8 LAB L100.2720 0.83-4.51 X10 3/ul Normal Absolute Lymph 2.01 Performed By: #### L100.0100 #### [facility] [address] [facility] [place], [place], [id number] CBC W/DIFF, AUTOMATED Collected: 09/15/2017 Status: F Source: CARY 5:56 PM [facility] REPOSITORY TYPE CODE TESTS RESULT OUT OF RANGE REFERENCE UNITS LAB L100.1000 4.4-11.0 K/mm3 Normal WBC 4.6 LAB L100.1200 4.6-6.2 M/mm3 Low RBC 3.95 LAB L100.1300 13.0-16.5 g/dl Normal HGB 14.9 LAB L100.1400 40-54 % Normal HCT 43.3 LAB L100.1500 80-94 fL High MCV 109.6 LAB L100.1600 27.0-32.0 pg High MCH 37.7 LAB L100.1700 32-36 g/gl Normal MCHC 34.4 LAB L100.1810 11.6-14.6 % Normal RDW CV 13.7 LAB L100.1820 35.1-43.9 fl High RDW SD 54.3 LAB L100.1900 150-450 K/mm3 Normal PLT 170 LAB L100.2000 6.2-12.0 fl Normal MPV 11.8 LAB L100.2100 47-70 % Low NEUT% 31.1 LAB L100.2200 19-41 % High LY% 48.6 LAB L100.2300 0-10 % High MONO% 16.2 LAB L100.2400 0-5 % Normal EO% 2.6 LAB L100.2500 0-1 % High BASO% 1.1 LAB L100.2550 0.0-0.9 % Normal IM GRAN % 0.400 Result Comment: IG% - Immature Granulocytes (promyelocytes, myelocytes and metamyelocytes) > 1% indicates that a LEFT SHIFT is Present. LAB L100.2620 2.0-7.7 X10 3/uL Low Absolute Neut 1.4 LAB L100.2720 0.83-4.51 X10 3/ul Normal Absolute Lymph 2.25 Performed By: #### L100.0100 #### [facility] [address] [place], [address] VALPROIC ACID Collected: 09/15/2017 Status: F Source: LUCAS (DEPAKENE) LEVEL 5:56 PM [facility] REPOSITORY TYPE CODE TESTS RESULT OUT OF RANGE REFERENCE UNITS LAB L501.8100 50-100 ug/mL Normal VALPROIC ACID 65 Performed By: #### L501.8100 #### [facility] [address] [place], [address] COMPREHENSIVE METABOLIC Collected: 09/15/2017 Status: F Source: LUCAS PROFIL 5:56 PM [facility] REPOSITORY TYPE CODE TESTS RESULT OUT OF RANGE REFERENCE UNITS LAB L501.0100 74-106 mg/dL Normal GLU 80 Result Comment: Please note revised GLUCOSE reference range effective 2017. LAB L501.1000 7-18 mg/dL Normal BUN 13 LAB L501.1100 0.70-1.30 mg/dL Normal CREAT,SERUM 0.81 Result Comment: The validity of the calculated GFR AND GFRAA in patients over 70 years has not been determined. Clinical correlation is essential. LAB L501.1110 >60 mL/min Normal EST GFR 105 Result Comment: Non- GFR Calc LAB L501.1115 >60 mL/min Normal EST GFR - AA 127 Result Comment: GFR Calc LAB L501.1300 10-20 RATIO Normal BUN/CRE 16.0 LAB L501.1500 6.4-8.2 g/dL T Normal PROT 8.0 LAB L501.1800 3.2-5.0 g/dL Low ALB 2.9 LAB L501.1950 2.2-4.2 g/dL High GLOB 5.1 LAB L501.2000 0.9-2.4 RATIO Low A/G 0.6 LAB L501.2200 8.5-10.1 mg/dL CA Normal 8.5 LAB L501.4100 15-37 U/L Normal AST 29 LAB L501.4305 45-117 U/L Normal ALK P 85 LAB L501.4405 16-61 U/L Normal ALT 29 LAB L501.4600 0.20-1.00 mg/dL T Normal BILI 0.30 LAB L501.5300 136-145 mmol/L NA Normal 140 LAB L501.5600 3.5-5.1 mmol/L K Normal 4.5 LAB L501.5900 98-107 mmol/L CL Normal 103 LAB L501.6100 21.0-32.0 mmol/L Normal CO2 32.0 LAB L501.6200 5-15 Normal GAP 5 Performed By: #### L500.4050, L501.9520 #### [facility] [address] [place], [place], [address] THYROID STIM HORMONE Collected: 09/15/2017 Status: F Source: LUCAS (TSH) 5:56 PM [facility] REPOSITORY TYPE CODE TESTS RESULT OUT OF RANGE REFERENCE UNITS LAB L501.9520 0.358-3.74 uIU/mL Normal TSH 1.08 Performed By: #### L500.4050, L501.9520 #### [facility] [address] [place], [place], [address] Observed: 09/15/2017 Status: F Source: LUCAS CULTURE, URINE 5:56 PM [facility] REPOSITORY Urine Culture Culture exhibits no growth. Performed By: #### M100.0650 #### [facility] [address] [place], [place], [address] THYROID STIM HORMONE Collected: 07/07/2017 Status: F Source: LUCAS (TSH) 5:00 PM [facility] REPOSITORY TYPE CODE TESTS RESULT OUT OF RANGE REFERENCE UNITS LAB L501.9520 0.358-3.74 uIU/mL Normal TSH 1.25 Performed By: #### L501.9520 #### [facility] [address] [place], [address] THYROID STIM HORMONE Collected: 04/15/2017 Status: F Source: LUCAS (TSH) 5:25 PM [facility] REPOSITORY TYPE CODE TESTS RESULT OUT OF RANGE REFERENCE UNITS LAB L501.9520 0.358-3.74 uIU/mL High TSH 4.71 Performed By: #### L501.9520 #### [facility] [address] [place], [address] CBC W/DIFF, AUTOMATED Collected: 02/25/2017 Status: F Source: LUCAS 9:37 AM [facility] REPOSITORY TYPE CODE TESTS RESULT OUT OF RANGE REFERENCE UNITS LAB L100.1000 4.4-11.0 K/mm3 Normal WBC 5.0 LAB L100.1200 4.6-6.2 M/mm3 Low RBC 4.14 LAB L100.1300 13.0-16.5 g/dl Normal HGB 15.1 LAB L100.1400 40-54 % Normal HCT 46.0 LAB L100.1500 80-94 fL High MCV 111.1 LAB L100.1600 27.0-32.0 pg High MCH 36.5 LAB L100.1700 32-36 g/gl Normal MCHC 32.8 LAB L100.1810 11.6-14.6 % Normal RDW CV 14.1 LAB L100.1820 35.1-43.9 fl High RDW SD 57.6 LAB L100.1900 150-450 K/mm3 Normal PLT 195 LAB L100.2000 6.2-12.0 fl High MPV 12.6 LAB L100.2100 47-70 % Low NEUT% 43.6 LAB L100.2200 19-41 % Normal LY% 36.1 LAB L100.2300 0-10 % High MONO% 16.5 LAB L100.2400 0-5 % Normal EO% 2.2 LAB L100.2500 0-1 % High BASO% 1.2 LAB L100.2550 0.0-0.9 % Normal IM GRAN % 0.400 Result Comment: IG% - Immature Granulocytes (promyelocytes, myelocytes and metamyelocytes) > 1% indicates that a LEFT SHIFT is Present. LAB L100.2620 2.0-7.7 X10 3/uL Normal Absolute Neut 2.2 LAB L100.2720 0.83-4.51 X10 3/ul Normal Absolute Lymph 1.79 Performed By: #### L100.0100 #### [facility] [address] [place], [place], [address] COMPREHENSIVE METABOLIC Collected: 02/25/2017 Status: F [facility] REPOSITORY TYPE CODE TESTS RESULT OUT OF RANGE REFERENCE UNITS LAB L501.0100 70-110 mg/dL Normal GLU 79 LAB L501.1000 7-18 mg/dL Normal BUN 16 LAB L501.1100 0.70-1.30 mg/dL Normal 0.80 CREAT,SERUM Result Comment: The validity of the calculated GFR AND GFRAA in patients over 70 years has not been determined. Clinical correlation is essential. LAB L501.1110 >60 mL/min Normal EST GFR 107 Result Comment: Non- GFR Calc LAB L501.1115 >60 mL/min Normal EST GFR - AA 129 Result Comment: GFR Calc LAB L501.1300 10-20 RATIO Normal BUN/CRE 20.0 LAB L501.1500 6.4-8.2 g/dL T Normal PROT 7.9 LAB L501.1800 3.4-5.0 g/dL Low ALB 2.9 Result Comment: Please note revised Albumin AND Globulin reference range effective 2016. LAB L501.1950 2.2-4.2 g/dL High GLOB 5.0 LAB L501.2000 0.9-2.4 RATIO Low A/G 0.6 LAB L501.2200 8.5-10.1 mg/dL Normal CA 8.5 LAB L501.4100 15-37 U/L Normal AST 28 LAB L501.4305 45-117 U/L Normal ALK P 79 LAB L501.4405 12-78 U/L Normal ALT 29 LAB L501.4600 0.20-1.00 mg/dL Normal T BILI 0.50 LAB L501.5300 136-145 mmol/L Normal NA 141 LAB L501.5600 3.5-5.1 mmol/L Normal K 4.3 LAB L501.5900 98-107 mmol/L Normal CL 102 LAB L501.6100 21.0-32.0 mmol/L Normal CO2 31.0 LAB L501.6200 5-15 Normal GAP 8 Performed By: #### L500.4050, L501.9520 #### [facility] [address] [place], [place], [address] THYROID STIM HORMONE Collected: 02/25/2017 Status: F Source: LUCAS (TSH) 9:37 AM [facility] REPOSITORY TYPE CODE TESTS RESULT OUT OF RANGE REFERENCE UNITS LAB L501.9520 0.358-3.74 uIU/mL High TSH 34.90 Performed By: #### L500.4050, L501.9520 #### [facility] [address] [place], [address] HEPATITIS C ANTIBODIES Collected: 02/25/2017 Status: F Source: LUCAS 9:37 AM [facility] REPOSITORY TYPE CODE TESTS RESULT OUT OF RANGE REFERENCE UNITS LAB L3100.0650 0.0-0.9 s/co ratio Normal HEP C AB 0.3 Result Comment: Negative: < 0.8 Indeterminate: 0.8 - 0.9 Positive: > 0.9 The CDC recommends that a positive HCV antibody result be followed up with a HCV Nucleic Acid Amplification test (117665). Performed at: [facility] [id number] Elevator Operator Freight: Iam Charlton PhD, Phone: [phone] Performed By: #### L3100.0625 #### [facility] (refer to report for specific site) refer to report for address and phone number ALLERGIES ALLERGIES DATE TYPE / CODE NAME / CODE REACTION SEVERITY SOURCE 01/11/2018 Drug No Known Unknown [facility] Allergy/4160 Allergies/F00 Hospital 15316(SNOMED 9421660(RXNOR Repository CT) M) ENCOUNTERS ENCOUNTERS ADMIT/DISCHARGE ACCOUNT ADMITTING ENCOUNTER LOCATION SOURCE NUMBER CLASS 01/11/2018/ [id number] Emergency [place] 8 0 [facility] ing:ED Repository 12/10/2017/ [id number] Emergency [place] 8 9 [facility] ing:ED Repository 12/07/2017 [id number] Ambulatory [place] 7 [facility] ing:HPRAD Repository 12/07/2017/ [id number] Ambulatory BMSBuilding:B [place] 8 2 [facility] Repository 10/15/2017/ [id number] Emergency [place] 8 7 [facility] ing:ED Repository 10/14/2017 [id number] Ambulatory [place] 6 [facility] ing:POLAB3 Repository 09/15/2017 [id number] Ambulatory [place] 2 [facility] ing:LABSPEC Repository 07/07/2017 [id number] Ambulatory [place] 3 [facility] ing:LAB Repository 04/24/2017 [id number] Ambulatory [place] 7 [facility] ing:LAB.FUTUR Repository E 04/15/2017 [id number] Ambulatory [place] 5 [facility] ing:LAB.FUTUR Repository E 02/25/2017 [id number] Ambulatory [place] 9 [facility] ing:POLAB3 Repository PAYERS PAYERS ENCOUNTER GUARANTOR PAYER SUBSCRIBER SOURCE 01/11/2018 THEO E Primary THEO E [place] Insurance:MEDICARE COPLEYDOB: Community [id number] [id number] Number: Repository [place], [place] [id number]: ([phone]) Date:2018-01-11 [phone] () 01/11/2018 Secondary THEO E [place] Insurance:MEDICAIDPol COPLEYDOB: [facility] icy Number: [id number] [id number] Repository Date:2018-01-11 01/11/2018 Tertiary NOT GIVENUNK [place] Insurance:SELF PAY [facility] Number: Effective Repository Date:2018-01-11 12/10/2017 THEO E Primary THEO E [place] Insurance:MEDICARE COPLEYDOB: [facility] [id number] [facility] [id number] Number: Repository [place] [id number]: ([phone]) Date:2017-12-10 [phone] () 12/10/2017 Secondary THEO E Sparks Insurance:MEDICAIDPol COPLEYDOB: Community icy Number: [id number] [id number] Repository Date:2017-12-10 12/10/2017 Tertiary NOT GIVENUNK [place] Insurance:SELF PAY [facility] Number: Effective Repository Date:2017-12-10 12/07/2017 THEO E Primary THEO E Sparks [place]OMES Insurance:MEDICARE COPLEYDOB: Community [id number] [facility] [id number] Number: Repository [place] [id number]: (330) Date:2017-12-07 [phone] () 12/07/2017 Secondary THEO E Sparks Insurance:MEDICAIDPol COPLEYDOB: Community icy Number: [id number] [id number] Repository Date:2017-12-07 12/07/2017 Tertiary NOT GIVENUNK [place] Insurance:SELF PAY [facility] Effective Repository Date:2017-12-07 12/07/2017 THEO E Primary THEO E [place]OMES Insurance:MEDICARE COPLEYDOB: Community [id number] Number: Repository [place] [id number]: (330) Date:2017-12-07 [phone] () 12/07/2017 Secondary THEO E [place] Insurance:MEDICAIDPol COPLEYDOB: Community ic Number: [id number] [id number] Repository Date:2017-12-07 12/07/2017 Tertiary NOT GIVENUNK [place] Insurance:SELF PAY [facility] Number: Effective Repository Date:2017-12-07 10/15/2017 Theo E Primary Theo E [place] Insurance:MEDICARE CopleyDOB: Community [id number] [address] PART [address] [facility] [id number] Number: Repository [place] [id number]: (330) Date:2017-10-15 [phone] () 10/15/2017 Secondary Theo E [place] Insurance:MEDICAIDPol CopleyDOB: Community icy Number: [id number] [id number] Repository Date:2017-10-15 10/15/2017 Tertiary NOT GIVENUNK [place] Insurance:SELF PAY [facility] Number: Effective Repository Date:2017-10-15 10/14/2017 Theo E Primary Theo E [place] Insurance:MEDICARE CopleyDOB: Community [id number] [address] Number: Repository [place] [id number]: (330) Date:2017-10-14 [phone] () 10/14/2017 Secondary Theo E [place] Insurance:MEDICAIDPol CopleyDOB: [facility] ic Number: [id number] [id number] Repository Date:2017-10-14 10/14/2017 Tertiary NOT GIVENUNK [place] Insurance:SELF PAY [facility] Number: Effective Repository Date:2017-10-14 09/15/2017 Theo E Primary Theo E [place] Insurance:MEDICARE [place]OB: [facility] [id number] E PART A [id number] Number: Repository [place] [id number]: ([phone]) Date:2017-09-15 [phone] () 09/15/2017 Secondary Theo E Lucas Insurance:MEDICAIDPol [place]DOB: [facility] Number: [id number] Hospital [id number] Repository Date:2017-09-15 09/15/2017 Tertiary NOT GIVENUNK [place] Insurance:SELF PAY [facility] Number: Effective Repository Date:2017-09-15 07/07/2017 Theo E Primary Theo E Lucas [id number] Insurance:MEDICARE [place]DOB: [facility] PART A [id number] Number: Repository [place] [id number]: ([phone]) Date:2017-07-07 [phone] () 07/07/2017 Secondary Theo E [place]ks Insurance:MEDICAIDPol [place]DOB: [facility] ic Number: [id number] Hospital [id number] Repository Date:2017-07-07 07/07/2017 Tertiary NOT GIVENUNK Lucas Insurance:SELF PAY [facility] Number: Effective Repository Date:2017-07-07 04/24/2017 Theo E Primary Theo E Lucas [id number] Insurance:MEDICARE [place]DOB: [facility] PART A [facility] [id number] [facility] Number: Repository [place] [id number]: ([phone]) Date:2017-04-24 [phone] (HP) 04/24/2017 Secondary Theo E Lucas Insurance:MEDICAIDPol [place]DOB: Community icy Number: [id number] Hospital [id number] Repository Date:2017-04-24 04/24/2017 Tertiary NOT GIVENUNK Lucas Insurance:SELF PAY [facility]: Effective Repository Date:2017-04-24 04/15/2017 Theo E Primary Theo E Lucas [id number] Insurance:MEDICARE [place]OB: [facility] [id number] Hospital [facility] Number: Repository [place] [id number]: ([phone]) Date:2017-03-06 [phone] (HP) 04/15/2017 Secondary Theo E Lucas Insurance:MEDICAIDPol [place]DOB: [facility] icy Number: [id number] Hospital [id number] Repository Date:2017-03-06 04/15/2017 Tertiary NOT GIVENUNK Lucas Insurance:SELF PAY [facility] Number: Effective Repository Date:2017-03-06 02/25/2017 Theo E Primary Theo E Sparks [id number] Insurance:MEDICARE [place]DOB: [facility] PART A [facility] [id number] Hospital Homes Number: Repository [place] [id number]: ([phone]) Date:2017-02-25 [phone] (HP) 02/25/2017 Secondary Theo E Sparks Insurance:MEDICAIDPol [place]DOB: Community icy Number: [id number] [facility] [id number] Repository Date:2017-02-25 02/25/2017 Tertiary NOT GIVENUNK [place] Insurance:SELF PAY [facility] Number: Effective Repository Date:2017-02-25
== END 2018-01-11 13:19 | disposition home or self-care (01) ==
PROVIDERS: Emergency Provider Emergency Medicine; Family Provider Family Medicine Geriatric Medicine; PCP Family Medicine Geriatric Medicine
DX: R60.0 Localized edema (principal); F03.90 Unspecified dementia, unspecified severity, without behavioral disturbance, psychotic disturbance, mood disturbance, and anxiety; R62.50 Unspecified lack of expected normal physiological development in childhood
CPT/HCPCS: 73590; 93970; 99282

== ENCOUNTER → 2018-04-22 10:23 | Outpatient (CLI) | payer MEDICARE, MEDICAID, SELFPAY ==
[2018-04-22 13:05] LABS: Absolute Lymphocyte Count 1.49 X10^3/ul (0.83-4.51); Absolute Neutrophil Count 2.9 X10^3/uL (2.0-7.7); Basophil# 0.04 X10^3/uL; Basophil% 0.8 % (0-1); Eosinophil# 0.08 X10^3/uL; Eosinophils% 1.5 % (0-5); Hematocrit 43.4 % (40-54); Hemoglobin 13.9 g/dl (13.0-16.5); Lymphocyte # 1.49 X10^3/ul (4.0); Lymphocyte % 28.6 % (19-41); Mean Corpuscular Hgb 35.5 pg (27.0-32.0); Mean Corpuscular Volume 110.7 fL (80-94); Mean Platelet Vol. 12.8 fl (6.2-12.0); Monocyte# 0.73 X10^3/uL; Neutrophil # 2.85 X10^3/uL (2.7-7.7); Neutrophil % 54.7 % (47-70); Platelet Count 197 K/mm3 (150-450); RBC Distribution Width CV 15.1 % (11.6-14.6); RBC Distribution Width SD 60.9 fl (35.1-43.9); Red Blood Count 3.92 M/mm3 (4.6-6.2); White Blood Count 5.2 K/mm3 (4.4-11.0)
[2018-04-22 13:09] LABS: POSITIVE COUNT NO; POSITIVE DIFFERENTIAL NO; POSITIVE MORPHOLOGY NO
[2018-04-22 13:26] LABS: ALB/GLOB Ratio 0.6 RATIO (0.9-2.4); AST(SGOT) 25 U/L (15-37); Alanine Aminotransfer ALT/SGPT 26 U/L (16-61); Albumin, Serum 2.8 g/dL (3.2-5.0); Alkaline Phosphatase 89 U/L (45-117); Anion Gap 4 (5-15); BUN 10 mg/dL (7-18); BUN/Creat Ratio 13.5 RATIO (10-20); Chloride 107 mmol/L (98-107); Creatinine, Serum 0.74 mg/dL (0.70-1.30); EST Glomerular Filtration Rate 116 mL/min (>60); Est Glom Filt Rate - Afr Amer 141 mL/min (>60); Globulin 4.7 g/dL (2.2-4.2); Glucose 69 mg/dL (74-106); PSA,Total - Annual Screen 0.29 ng/mL (0.00-4.00); Potassium 4.1 mmol/L (3.5-5.1); Protein, Total 7.5 g/dL (6.4-8.2); Sodium Level 141 mmol/L (136-145); Thyroid Stim Hormone (TSH) 1.15 uIU/mL (0.358-3.74)
[2018-04-23 08:27] LABS: Hep C Antibodies <0.1 s/co ratio (0.0-0.9)
== END ==
PROVIDERS: Family Provider Family Medicine Geriatric Medicine; PCP Family Medicine Geriatric Medicine; Visit Provider Family Medicine Geriatric Medicine
DX: R53.83 Other fatigue (principal); Z12.5 Encounter for screening for malignant neoplasm of prostate
CPT/HCPCS: 36415; 80053; 84153; 84443; 85025; 86803; G0103

== ENCOUNTER → 2018-06-17 12:59 | Outpatient (CLI) | payer MEDICARE, MEDICAID, SELFPAY ==
--- NOTE | 2018-06-17 13:07 | RAD_ITS ---
STUDY: SWALLOWING STUDY REASON FOR EXAM: Male, 57 years old. Dysphagia. TECHNIQUE: The examination was performed with Speech Pathology in attendance. Under fluoroscopic observation, the patient ingested thin barium, thick barium, barium pudding, and barium coated cracker. FLUOROSCOPY TIME: 4:33 minutes/seconds. [id number] spot images were obtained. RADIOLOGIST INVOLVEMENT: Radiologist was present and providing direct supervision. COMPARISON: None. FINDINGS: The following was observed during swallowing of the various mixtures of barium: Thin Barium: Transient penetration with ingestion of thin liquids. Thick Barium: Transient penetration with ingestion of thick liquids. Barium Pudding: There was no evidence of aspiration or laryngeal penetration. Barium Coated Cracker: There was no evidence of aspiration or laryngeal penetration. Delayed oral phase. RAD/Swallowing Function w/Video IMPRESSION: Penetration with evacuation with ingestion of thin liquids and nectar thickened liquids. The swallow study findings were discussed with the patient by the speech pathologist at the conclusion of the examination. Please see speech pathology report for more information and recommendations. Electronically Signed: Angel Huntley, at 13:51 EDT , Service support ,
--- NOTE | 2018-06-17 13:53 | SP.MBSS_ITS ---
PRIMARY / SECONDARY DIAGNOSIS: oropharyngeal dysphagia (R13.12) REFERRING PHYSICIAN: Dr. 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 MEDICAL HISTORY: The patient is a 57/m with past medical history significant for Downs syndrome, dementia, hypothyroidism, and COPD. STUDY FINDINGS: Patient participated in a Modified Barium Swallow (MBS) study on 06/17/2018. Dr. Huntley was the radiologist present for this evaluation. This study was recorded in the lateral view and images were sent to PACs for storage. The following consistencies were presented to this patient for analysis of oropharyngeal swallow function: thin liquid, nectar thick liquids, honey thick liquid, pudding, and a regular textured, Marisela Doone cookie. Results of the MBS are as follows: PENETRATION / ASPIRATION SCALE (HARRIS): 1 = does not enter airway 2 = enters airway/above vocal folds/ejected 3 = enters airway/above vocal folds/not ejected 4 = enters airway/contacts vocal folds/ejected 5 = enters airway/contacts vocal folds/not ejected 6 = enters airway/below vocal folds/ejected 7 = enters airway/below vocal folds/not ejected despite effort 8 = enters airway/below vocal folds/no effort PENETRATION / ASPIRATION SCALE (SCORE): 1) thin liquids via teaspoon= 1 2) thin liquids via teaspoon= 1 3) thin liquids via cup= 5 4) thin liquids via cup= 3 5) nectar thick liquids via cup= 1 6) nectar thick liquids via cup= 2 7) nectar thick liquids via cup= 3 8) honey thick liquids via cup = 1 9) honey thick liquids via cup = 1 10) pudding = 1 11) 1/2 cookie= 1 12) whole cookie = 1 *honey thick liquid chaser used to clear residue at the end but not scored. IMPRESSION: mild-moderate oropharyngeal dysphagia (R13.12) ORAL PHASE CHARACTERIZED BY: LABIAL SEAL: interlabial escape, no progression to anterior lip TONGUE CONTROL DURING BOLUS MANIPULATION: posterior escape of less than half of bolus BOLUS PREPARATION / MASTICATION: disorganized chewing/mashing with solid pieces of bolus unchewed BOLUS TRANSPORT / LINGUAL MOTION: repetitive/disorganized tongue motion ORAL RESIDUE: residue collection on oral structures PHARYNGEAL PHASE CHARACTERIZED BY: INITIATION OF PHARYNGEAL SWALLOW: bolus head in pyriforms at first hyoid excursion SOFT PALATE ELEVATION: no bolus between soft palate and pharyngeal wall LARYNGEAL ELEVATION: partial superior movement of thyroid cartilage/partial approximation of arytenoids cartilage to epiglottic petiole ANTERIOR HYOID EXCURSION: complete anterior movement EPIGLOTTIC MOVEMENT: complete epiglottic inversion LARYNGEAL VESTIBULE CLOSURE AT HEIGHT OF SWALLOW: incomplete laryngeal vestibule closure with narrow column of air/contrast in laryngeal vestibule PHARYNGEAL STRIPPING WAVE: pharyngeal stripping wave present / diminished PHARYNGOESOPHAGEAL SEGMENT OPENING: partial distension and partial duration; partial obstruction of flow TONGUE BASE RETRACTION: narrow column of contrast between tongue base and posterior pharyngeal wall PHARYNGEAL RESIDUE: collection of residue within or on pharyngeal structures ESOPHAGEAL PHASE CHARACTERIZED BY: ESOPHAGEAL BOLUS CLEARANCE IN THE UPRIGHT POSITION: esophageal retention from what could be visualized below PES INTERPRETATION OF RESULTS: Patient presents with mild-moderate oropharyngeal dysphagia (R13.12) secondary to dementia. Oral phase primarily marked by prolonged, repetitive mastication of solids with breaks in chewing particularly in larger quantities. Oral residue remained following initial swallows of solid textures. Thickened liquid chaser moderately effective at clearing oral residue. Premature bolus loss to the pyriforms noted before swallow onset with liquids and solids. Pharyngeal phase primarily marked by delayed pharyngeal swallow onset timing contributing to penetration with thinner liquids as well as penetration with nectar thick liquids above the vocal cords in larger quantities. Reduced laryngeal elevation noted resulting in decreased laryngeal vestibule closure / pressure. Aspiration was not demonstrated during this study. Due to patients difficulty following directions, pharyngeal residue unable to be cleared with cues to cough and re- swallow or to take double swallow. DIET TEXTURE RECOMMENDATIONS: Will recommend a mechanical soft texture, nectar thick liquid diet. COMPENSATORY STRATEGIES RECOMMENDED: Will recommend direct supervision during meals, small bites/sips, slow rate, alternate bites with sips, adding sauces/gravy to chopped solids, seated upright at 90 degrees during PO intake, and remain upright for 30-60 minutes post meal, and medications whole with purees. RECOMMENDATIONS: Would consider downgrade to honey thick liquids if the patient becomes symptomatic with coughing/choking during drinks/meals or has increased episodes of pneumonia. If so, may consider follow-up with PCP for ST referral for reassessment of swallow function as well as caregiver education/training on diet recommendations and compensatory strategies. Traditional oropharyngeal strengthening exercises may not be beneficial to the patient as he has demonstrated significant difficulty following verbal directions during todays assessment. Results and recommendations were discussed with the patient and caregiver immediately following MBS completion, with caregiver verbalizing understanding and agreement with all recommendations and education provided. IMAGE COUNT: [id number] Tyra Leahy M.A., CCC-RESIDENT ASSOCIATE Speech Language Pathologist [address] [address] [email or web address] [phone]
== END ==
PROVIDERS: Family Provider Family Medicine Geriatric Medicine; PCP Family Medicine Geriatric Medicine; Referring Provider Family Medicine Geriatric Medicine; Visit Provider Family Medicine Geriatric Medicine
DX: R13.10 Dysphagia, unspecified (principal)
CPT/HCPCS: 74230; 92611

== ENCOUNTER → 2018-11-10 10:09 | Outpatient (CLI) | payer MEDICARE, MEDICAID, SELFPAY ==
[2018-11-10 12:11] LABS: Absolute Lymphocyte Count 1.42 X10^3/uL (0.83-4.51); Absolute Neutrophil Count 1.4 X10^3/uL (2.0-7.7); Basophil# 0.05 X10^3/uL; Basophil% 1.4 % (0-1); Eosinophil# 0.07 X10^3/uL; Eosinophils% 1.9 % (0-5); Hematocrit 41.7 % (40-54); Hemoglobin 13.9 g/dL (13.0-16.5); Lymphocyte # 1.42 X10^3/ul (4.0); Lymphocyte % 39.2 % (19-41); Mean Corp Hgb Conc 33.3 g/dL (32-36); Monocyte# 0.63 X10^3/uL; Monocyte% 17.4 % (0-10); NRBC Flagged by Analyzer 0 % (0-5); Neutrophil # 1.42 X10^3/uL (2.7-7.7); Neutrophil % 39.3 % (47-70); Platelet Count 178 K/mm3 (150-450); RBC Distribution Width CV 13.8 % (11.6-14.6); RBC Distribution Width SD 55.1 fl (35.1-43.9); Red Blood Count 3.86 M/mm3 (4.6-6.2); White Blood Count 3.6 K/mm3 (4.4-11.0)
[2018-11-10 12:19] LABS: ALB/GLOB Ratio 0.5 RATIO (0.9-2.4); AST(SGOT) 26 U/L (15-37); Alanine Aminotransfer ALT/SGPT 27 U/L (16-61); Albumin, Serum 2.7 g/dL (3.2-5.0); Alkaline Phosphatase 73 U/L (45-117); Anion Gap 4 (5-15); BUN 11 mg/dL (7-18); BUN/Creat Ratio 14.9 RATIO (10-20); Calcium,Total 8.6 mg/dL (8.5-10.1); Chloride 104 mmol/L (98-107); Creatinine, Serum 0.74 mg/dL (0.70-1.30); EST Glomerular Filtration Rate 117 mL/min (>60); Est Glom Filt Rate - Afr Amer 141 mL/min (>60); Glucose 66 mg/dL (74-106); Potassium 4.1 mmol/L (3.5-5.1); Protein, Total 7.7 g/dL (6.4-8.2); Sodium Level 141 mmol/L (136-145); Thyroid Stim Hormone (TSH) 0.26 uIU/mL (0.358-3.74)
[2018-11-10 14:28] LABS: Vitamin D,25 Hydroxy 18.6 ng/mL (29.95-100.01)
== END ==
PROVIDERS: Family Provider Family Medicine Geriatric Medicine; PCP Family Medicine Geriatric Medicine; Visit Provider Family Medicine Geriatric Medicine
DX: R53.83 Other fatigue (principal); E55.9 Vitamin D deficiency, unspecified
CPT/HCPCS: 36415; 80053; 82306; 84443; 85025

== ENCOUNTER 2019-02-26 20:23 | Emergency (ER) | payer MEDICARE, MEDICAID, SELFPAY ==
[2019-02-26 20:23] VITALS: BP 88/55; PULSE 79; RESP 16; TEMP 36.7; O2SAT 95; BMI 31.4
--- NOTE | 2019-02-26 20:41 | ED.VISSUMM ---
- ER Visit Summary Date of Service: 02/26/19 Chief Complaint: Weakness and leaning to the right History of Present Illness: The patient is a 58 M who presents with weakness that is been getting progressively worse but became worse today. long term states that the patient began leaning to his right today. Patient fell 1 week ago and hit his head. Family does not believe he had a loss of consciousness at that time. Family states the patient has been getting progressively weaker over the past several days. Family denies any fevers or chills. Family denies any nausea or vomiting. Patient has a history of Down syndrome and dementia and is a poor historian. Physical Examination: Vital signs are stable. Patient is afebrile. Patient is in no acute distress. Oral mucosa is pink and dry. Neck is supple. Trachea is midline. There is no JVD. Heart was regular rate and rhythm. Lungs are clear and equal bilaterally. There is adequate respiratory effort. Abdomen is soft. Bowel sounds are normal. There is no apparent tenderness. Cranial nerves II through XII are grossly intact. There are no focal motor or sensory deficits noted. Test Results: CBC and comprehensive metabolic profile were obtained and were within normal limits. Urinalysis does not show any evidence for urinary tract infection. CT scan of the brain was obtained. There are chronic changes. PA and lateral chest x-ray was obtained. There are chronic changes. There are no acute infiltrates. These were interpreted by the radiologist and myself. Emergency Department Course and Treatment: Patient was given IV fluids. Patient was feeling better on reevaluation. Patient's blood pressure improved to 125/70. Patient was able to sit up straight. Patient was talking better and appeared to be normal per family. Patient will be discharged back to his snf. Patient was instructed to drink more fluids. Patient was instructed to follow-up with his primary care physician in 3 to 5 days. Family understood and was agreeable with the plan. All questions were answered. Disposition: Discharge home Impression: Dehydration This note was generated with vSocial dictation software. It may contain incorrect words, spelling, and punctuation that were not noted in review of the chart prior to signing ED Disposition - Plan for ED Patient: Disposition: Home or Assisted Living Diagnosis: Dehydration Instructions: DEHYDRATION (8y-Adult) Referrals: Vijay Merritt Chi, MD [Primary Care Provider] - 3-5 Days
--- NOTE | 2019-02-26 20:43 | CT_ITS ---
STUDY: CT BRAIN WITHOUT CONTRAST REASON FOR EXAM: Male, 58 years old. Abrasions on the right forehead after fall last week. Leaning to the left side today. History of Down syndrome dementia and hypothyroidism. RADIATION DOSAGE (If Supplied By Facility): CTDIvol = ( 44.99 ) mGy, DLP = ( 796.11 ) mGycm TECHNIQUE: Transaxial CT imaging of the brain was performed without administration of intravenous contrast material. Individualized dose optimization techniques were used for this CT. COMPARISON: No relevant priors. FINDINGS: Normal soft tissue structures. Normal calvarium. There is moderate cerebral atrophy with widening of the extra-axial spaces. The degree of ventricular dilatation appears greater than expected for the degree of cerebral atrophy.. There are areas of decreased attenuation within the white matter tracts of the supratentorial brain, consistent with microvascular disease changes. There are small punctate calcifications of the basal ganglia which are seen in the aging brain as a normal variant. Normal brainstem. Normal cerebellum. There is no intracranial hemorrhage. There are no findings of an acute ischemic infarction. Normal visualized paranasal sinuses. CT/Brain/Head without Contrast IMPRESSION: 1. Chronic involutional changes of brain. 2. Question mild ventricular dilatation greater than expected for the degree of cerebral atrophy. Mild NPH cannot be ruled out. 3. No evidence of acute intracranial or calvarial abnormality. Electronically Signed: Sriram French DO at 21:52 EST Tel [phone], Service support ,
[2019-02-26 20:45] VITALS: BP 95/47; PULSE 76; RESP 16
[2019-02-26 21:15] LABS: Absolute Lymphocyte Count 1.43 X10^3/uL (0.83-4.51); Absolute Neutrophil Count 3.3 X10^3/uL (2.0-7.7); Basophil# 0.05 X10^3/uL; Basophil% 0.9 % (0-1); Eosinophil# 0.04 X10^3/uL; Eosinophils% 0.7 % (0-5); Hematocrit 41.4 % (40-54); Lymphocyte # 1.43 X10^3/ul (4.0); Mean Corp Hgb Conc 33.8 g/dL (32-36); Mean Corpuscular Hgb 36.8 pg (27.0-32.0); Mean Corpuscular Volume 108.9 fL (80-94); Mean Platelet Vol. 11.9 fl (6.2-12.0); Monocyte# 0.64 X10^3/uL; Monocyte% 11.7 % (0-10); NRBC Flagged by Analyzer 0 % (0-5); Neutrophil % 60.2 % (47-70); Platelet Count 187 K/mm3 (150-450); RBC Distribution Width CV 13.5 % (11.6-14.6); White Blood Count 5.5 K/mm3 (4.4-11.0)
[2019-02-26] MEDS: 0.9% Normal Saline 1,000 ML 1000 ML IV (21:15)
--- NOTE | 2019-02-26 21:30 | RAD_ITS ---
STUDY: X-RAY CHEST REASON FOR EXAM: Male, 58 years old. Weakness. TECHNIQUE: PA and lateral COMPARISON: 10/15/2017 FINDINGS: Mild patchy bibasilar densities are similar to previous. Lungs otherwise clear. Heart size normal. No concerning mediastinal or hilar lesions. No acute osseous abnormality. No evidence of free air under the diaphragm. RAD/Chest PA and Lateral IMPRESSION: Mild patchy bibasilar densities similar to previous, most likely scarring/chronic atelectasis. Mild superimposed pneumonia difficult to exclude. Electronically Signed: Miguel Angel Harris, at 22:09 EST Tel , Service support ,
[2019-02-26 21:35] LABS: ALB/GLOB Ratio 0.6 RATIO (0.9-2.4); AST(SGOT) 26 U/L (15-37); Alanine Aminotransfer ALT/SGPT 21 U/L (16-61); Albumin, Serum 2.8 g/dL (3.2-5.0); Alkaline Phosphatase 87 U/L (45-117); Anion Gap -1 (5-15); BUN 15 mg/dL (7-18); BUN/Creat Ratio 18.1 RATIO (10-20); Calcium,Total 8.7 mg/dL (8.5-10.1); Chloride 107 mmol/L (98-107); Creatinine, Serum 0.83 mg/dL (0.70-1.30); EST Glomerular Filtration Rate 102 mL/min (>60); Est Glom Filt Rate - Afr Amer 123 mL/min (>60); Estimated Creatinine Clearance 70.28 ml/min; Glucose 112 mg/dL (74-106); Potassium 4.2 mmol/L (3.5-5.1); Protein, Total 7.8 g/dL (6.4-8.2); Sodium Level 142 mmol/L (136-145)
[2019-02-26 22:30] VITALS: BP 125/70; PULSE 80; RESP 16
[2019-02-26 22:39] LABS: Bacteria 0 SEEN /hpf (None Seen); Mucous, Urine 0 SEEN /hpf (<or=2+)
[2019-02-26 22:51] LABS: Color, Urine Yellow (Yellow); Glucose, Dipstick Normal (Normal); Ketone-Dipstick 5 mg/dl (Negative); Leukocyte Esterase-Dipstick 25 /ul (Negative); Nitrite-Dipstick Negative (Negative); Occult Blood-Urine Negative /ul (Negative); Protein-Dipstick Negative (Negative); Specific Gravity, Urine 1.015 (1.002-1.030); Urine Bilirubin Dipstick Negative (Negative); Urine Clarity Clear (Clear); Urine Urobilinogen 1 mg/dl (Normal)
[2019-02-26 23:05] LABS: Red Blood Cells-Urine 0-5 SEEN /hpf (0-5); Squamous Epithelial Cells - UA 0-5 SEEN /hpf (0-5); White Blood Cells 0-5 SEEN /hpf (0-5)
[2019-02-26 23:30] VITALS: PULSE 80; RESP 16
== END 2019-02-26 23:39 | disposition home or self-care (01) ==
PROVIDERS: Emergency Provider Emergency Medicine; PCP Family Medicine Geriatric Medicine
DX: E86.0 Dehydration (principal); F03.90 Unspecified dementia, unspecified severity, without behavioral disturbance, psychotic disturbance, mood disturbance, and anxiety; Q90.9 Down syndrome, unspecified; E03.9 Hypothyroidism, unspecified; Z79.899 Other long term (current) drug therapy
CPT/HCPCS: 70450; 71046; 80053; 81001; 85025; 96360; 99285; J7030; P9612; A4216

== ENCOUNTER → 2019-03-17 | Outpatient (CLI) | payer MEDICARE, MEDICAID, SELFPAY ==
[2019-02-26 20:23] VITALS: BMI 31.4
[2019-03-17 17:22] LABS: Absolute Lymphocyte Count 2.13 X10^3/uL (0.83-4.51); Absolute Neutrophil Count 2.4 X10^3/uL (2.0-7.7); Basophil# 0.08 X10^3/uL; Basophil% 1.4 % (0-1); Eosinophil# 0.09 X10^3/uL; Eosinophils% 1.6 % (0-5); Hematocrit 42.2 % (40-54); Lymphocyte # 2.13 X10^3/ul (4.0); Lymphocyte % 38.2 % (19-41); Mean Corp Hgb Conc 33.2 g/dL (32-36); Mean Corpuscular Volume 111.6 fL (80-94); Monocyte# 0.85 X10^3/uL; Monocyte% 15.2 % (0-10); NRBC Flagged by Analyzer 0 % (0-5); Neutrophil # 2.41 X10^3/uL (2.7-7.7); Neutrophil % 43.2 % (47-70); Platelet Count 168 K/mm3 (150-450); RBC Distribution Width CV 14.2 % (11.6-14.6); RBC Distribution Width SD 59.2 fl (35.1-43.9); Red Blood Count 3.78 M/mm3 (4.6-6.2); White Blood Count 5.6 K/mm3 (4.4-11.0)
[2019-03-17 17:36] LABS: Anion Gap 2 (5-15); BUN 11 mg/dL (7-18); BUN/Creat Ratio 14.5 RATIO (10-20); Calcium,Total 8.9 mg/dL (8.5-10.1); Chloride 104 mmol/L (98-107); Creatinine, Serum 0.76 mg/dL (0.70-1.30); EST Glomerular Filtration Rate 113 mL/min (>60); Est Glom Filt Rate - Afr Amer 137 mL/min (>60); Glucose 79 mg/dL (74-106); Potassium 4.2 mmol/L (3.5-5.1); Sodium Level 140 mmol/L (136-145)
== END | disposition home or self-care (01) ==
LOC: POLAB3 15:02
PROVIDERS: Family Provider Family Medicine Geriatric Medicine; PCP Family Medicine Geriatric Medicine; Visit Provider Family Medicine Geriatric Medicine
DX: F05 Delirium due to known physiological condition (principal)
CPT/HCPCS: 36415; 80048; 85025

== ENCOUNTER 2019-04-21 07:38 | Inpatient (IN) | payer MEDICARE, MEDICAID, SELFPAY ==
[2019-04-21] VITALS (31 sets, daily range): BP systolic 92–126; BP diastolic 49–91; PULSE 99–113; RESP 16–94; TEMP 37.2–39.1; O2SAT 85–98; BMI 25.1; BMI 25.2
--- NOTE | 2019-04-21 07:42 | RAD_ITS ---
STUDY: X-RAY CHEST REASON FOR EXAM: Male, 58 years old. COUGH, SOB TECHNIQUE: Single AP portable view of the chest. COMPARISON: Comparison is made with prior examination dated February 26, 2019. FINDINGS: EKG lead tubes are seen. There is evidence of a pulmonary vascular congestion with increased markings at the lung bases suggestive of mild degree of CHF superimposed on bibasilar atelectasis versus mild bibasilar scarring. There is no demonstrated pleural abnormality. Normal size heart. Normal mediastinum and humberto. Normal visualized pulmonary arteries. Normal visualized aortic arch and descending thoracic aorta. Normal visualized thoracic spine. Normal visualized ribs, clavicles, and shoulders. There is no demonstrated abnormality of the visualized soft tissue structures of the upper abdomen. RAD/Chest 1 View (Portable) IMPRESSION: Findings suggestive of a mild degree of CHF with bibasilar atelectasis superimposed on mild degree of scarring. Electronically Signed: Angel Huntley, at 8:26 EDT , Service support ,
--- NOTE | 2019-04-21 07:42 | EKG12_ITS ---
Test Reason : SOB Blood Pressure : / mmHG Vent. Rate : 103 BPM Atrial Rate : 103 BPM P-R Int : 128 ms QRS Dur : 080 ms QT Int : 340 ms P-R-T Axes : 063 052 008 degrees QTc Int : 445 ms Sinus tachycardia Otherwise normal ECG Confirmed by HAZEL MAR, DESTINEE ([id number]), video effects editor KIMBERLY GAXIOLA ([id number]) on 04/22/2019 1:04:01 PM Referred By: HANSA Confirmed By:TONY OLIVA MD
--- NOTE | 2019-04-21 07:50 | ED.VIS.GEN ---
History of Present Illness Chief Complaint: Shortness of Breath Informant: Patient Onset: Yesterday Context: Gradual Onset Timing: Continuous Current Severity: Moderate Maximum Severity: Severe Narrative: The patient is a 58-year-old male with medical history significant for Down syndrome and dementia presents to the emergency department with flulike symptoms and shortness of breath. The patient was in his normal state of health. Yesterday, he began to have a cough. Overnight throughout the morning, he had worsening shortness of breath. He was found to have 82% oxygen saturation on room air. Patient had very coarse lung sounds. He also had a fever of 101. The patient was placed on a nonrebreather and brought in. Based on the patient's dementia and Down syndrome, history is hard to gather from the patient. Sister at the bedside gives most of the history. Prior similar symptoms: No Recent Illness/Hospitalization: No Past Medical History - Allergies and Home Meds Allergies/Adverse Reactions: Allergies No Known Allergies Allergy (Verified 02/26/19 20:24) Primary Care Physician: Vijay Merritt Chi, MD [Primary Care Provider] - Prior records reviewed: Yes Past Medical History: - - Dementia, Down syndrome Surgical History: noncontributory Smoking Status: Never smoker Review of Systems General: Reports: Fever. Denies: Chills, Sweats Eyes: Denies: Visual changes - bilaterally, Diplopia ENT: Denies: Rhinorrhea, Sore throat Cardiovascular: Denies: Chest pain, Palpitations Respiratory: Reports: Dyspnea, Cough. Denies: Dyspnea on exertion Gastrointestinal: Denies: Abdominal pain, Nausea, Vomiting, Diarrhea, Melena, Hematochezia Genitourinary: Denies: Dysuria, Hematuria, Frequency Musculoskeletal: Denies: Back pain, Extremity Pain Skin: Denies: Rash, Wounds Neurological: Denies: Headache, Weakness, Numbness Physical Exam Vital Signs/Narrative: Vital Signs Temp Pulse Resp BP Pulse Ox 04/21/19 07:38 99.4 F H 107 H 22 H 100/75 94 Inital Vital Signs reviewed: Yes General: Well nourished, Well developed, No Acute Distress Head: Normocephalic, Atraumatic Eyes: Perrl, EOMI ENT: Moist mucous membranes, No rhinorrhea Neck: Supple, Nontender Cardiovascular: Regular rate, Regular rhythm, No murmurs Respiratory: No distress, Chest nontender, Rhonchi, Decreased Air Movement Abdomen: Soft, Nontender, Nondistended, Normal bowel sounds Back: Nontender, Normal Inspection Extremities: Nontender, No edema Skin: Normal color, No rash Neurological: Alert, Oriented x3, Cranial nerves II-XII grossly intact, Normal Strength, Normal Sensation Psychological: Normal affect, Normal Mood Diagnostic/Tx/Re-eval Clinical Impression(s) from Imaging Studies Chest X-Ray 04/21/19 07:42 IMPRESSION: Findings suggestive of a mild degree of CHF with bibasilar atelectasis superimposed on mild degree of scarring. Electronically Signed: Angel Huntley, at 8:26 EDT , Service support , Abnormal Lab Results 04/21/19 04/21/19 04/21/19 07:50 07:50 07:50 WBC 16.6 H RBC 3.64 L Hgb 13.7 Hct 39.8 L MCV 109.3 H MCH 37.6 H MCHC 34.4 RDW Std Deviation 57.3 H RDW Coeff of Tamia 14.0 Plt Count 142 L MPV 12.5 H Immature Gran % (Auto) 0.400 Neut % (Auto) 73.5 H Lymph % (Auto) 12.3 L Crowley % (Auto) 13.2 H Eos % (Auto) 0.1 Baso % (Auto) 0.5 Absolute Neuts (auto) 12.2 H Absolute Lymphs (auto) 2.04 Nucleated RBC % 0 Differential Comment COMMENT Diff Path Review May foll Sodium 143 Potassium 3.6 Chloride 109 H Carbon Dioxide 32.0 Anion Gap 2 L BUN 18 Creatinine 0.90 Estim Creat Clear Calc 79.72 Est GFR (MDRD) Af Amer 112 Est GFR (MDRD) Non-Af 92 BUN/Creatinine Ratio 20.0 Glucose 114 H Lactic Acid 1.7 Calcium 8.4 L Total Bilirubin 0.40 AST 25 ALT 23 Alkaline Phosphatase 68 Total Protein 7.3 Albumin 2.2 L Globulin 5.1 H Albumin/Globulin Ratio 0.4 L - Medical Decision Making The patient presents to the emergency department with cough and shortness of breath. He is also had a fever. History is hard to gather from the patient given his underlying Down syndrome and dementia. Per the sister at the bedside, he has had a slowly declining health over the past few months. He said decreased oral intake. He said weight loss. Patient does have rather rhonchorous lung sounds and is requiring significant supplemental oxygen. Chest x-ray was obtained, which I feel likely represents a right lower lobe pneumonia and resulting pulmonary edema. He does have leukocytosis but normal lactic acid. I did have a long conversation with the sister at the bedside. At this point, we are going to proceed is a DNR CCA with no intubation. Given the patient's other comorbidities, she is hesitant to place him on a ventilator and I feel that this is reasonable. The patient will be covered with broad-spectrum antibiotics. He was discussed with the behavioral intervention specialist and with the hospitalist and will be admitted at this time. Impression 1. Acute respiratory failure 2. Aspiration pneumonia 3. New onset CHF - Critical Care Time Critical care time (excluding procedures): 30-74 minutes, Discussing w/Patient &/or Family/Wire Harness Assembler, Discussing w/Consultants, Arranging Admission or Transfer, Performing Direct Patient Care at Bedside ED Disposition - Plan for ED Patient: Referrals: Vijay Merritt Chi, MD [Primary Care Provider] -
[2019-04-21] MEDS: Albuterol 2.5 MG/3 ML VIAL.NEB. INHALATION ×3 (07:54→20:25)
[2019-04-21] MEDS: Ipratropium/Albuterol Sulfate 3 ML AMPUL.NEB INHALATION (07:54)
[2019-04-21] MEDS: 0.9% Normal Saline 1,000 ML 999 ML IV (08:05)
[2019-04-21 08:07] LABS: Absolute Lymphocyte Count 2.04 X10^3/uL (0.83-4.51); Absolute Neutrophil Count 12.2 X10^3/uL (2.0-7.7); Basophil# 0.09 X10^3/uL; Basophil% 0.5 % (0-1); Eosinophil# 0.02 X10^3/uL; Eosinophils% 0.1 % (0-5); Hematocrit 39.8 % (40-54); Hemoglobin 13.7 g/dL (13.0-16.5); Lymphocyte # 2.04 X10^3/ul (4.0); Lymphocyte % 12.3 % (19-41); Mean Corp Hgb Conc 34.4 g/dL (32-36); Mean Corpuscular Hgb 37.6 pg (27.0-32.0); Mean Corpuscular Volume 109.3 fL (80-94); Mean Platelet Vol. 12.5 fl (6.2-12.0); Monocyte# 2.19 X10^3/uL; Monocyte% 13.2 % (0-10); NRBC Flagged by Analyzer 0 % (0-5); Neutrophil # 12.18 X10^3/uL (2.7-7.7); Neutrophil % 73.5 % (47-70); POSITIVE DIFFERENTIAL YES; POSITIVE MORPHOLOGY YES; Platelet Count 142 K/mm3 (150-450); RBC Distribution Width SD 57.3 fl (35.1-43.9); Red Blood Count 3.64 M/mm3 (4.6-6.2); White Blood Count 16.6 K/mm3 (4.4-11.0)
[2019-04-21 08:09] LABS: Differential Indicated SCAN CRITERIA MET
[2019-04-21 08:22] LABS: ALB/GLOB Ratio 0.4 RATIO (0.9-2.4); AST(SGOT) 25 U/L (15-37); Alanine Aminotransfer ALT/SGPT 23 U/L (16-61); Albumin, Serum 2.2 g/dL (3.2-5.0); Alkaline Phosphatase 68 U/L (45-117); Anion Gap 2 (5-15); BUN 18 mg/dL (7-18); Calcium,Total 8.4 mg/dL (8.5-10.1); Chloride 109 mmol/L (98-107); EST Glomerular Filtration Rate 92 mL/min (>60); Est Glom Filt Rate - Afr Amer 112 mL/min (>60); Estimated Creatinine Clearance 79.72 ml/min; Globulin 5.1 g/dL (2.2-4.2); Glucose 114 mg/dL (74-106); Potassium 3.6 mmol/L (3.5-5.1); Protein, Total 7.3 g/dL (6.4-8.2); Sodium Level 143 mmol/L (136-145)
[2019-04-21 08:30] LABS: Lactic Acid 1.7 mmol/L (0.4-1.9)
--- NOTE | 2019-04-21 09:22 | PCM.HP.STD ---
Problem List (1) Pneumonia Status: Acute (2) Dementia Status: Chronic (3) Down's syndrome Status: Chronic History of Present Illness Date of Admission: 04/21/19 Chief Complaint: Shortness of breath The patient is a 58 year old M with past medical history significant for Down syndrome, early onset dementia, currently residing at home who was brought to the emergency department with shortness of breath and flulike symptoms. Patient symptoms apparently started a couple of days prior to his admission have since gotten worse. Patient upon arrival to the emergency department was found to hypoxic with oxygen saturation in the mid 70s. Patient was placed on a nonrebreather and admitted to the intensive care unit for further management Past Medical History Past Medical History (Chronic Problems): Chronic Problems (Last Updated 12/07/17 @ 13:41 by Snehal Hernandez) Dementia (Chronic) Down's syndrome (Chronic) Medical History: Medical History (Last Reviewed 04/21/19 @ 15:[address] Esequiel Freitas MD) Difficulty balancing R29.818 Fatigue R53.83 Incontinence R32 Knee pain M25.569 Limb weakness R29.898 Seasonal allergies J30.2 Thyroid disease E07.9 Allergies No Known Allergies Allergy (Verified 02/26/19 20:24) Home Medications: Ambulatory Orders Medication Instructions Recorded Divalproex Sodium [Depakote] 500 mg PO BID 10/15/17 Docusate Sodium [Colace] 100 mg PO DAILY 10/15/17 Iron/Mv,Stress Form [Stress 1 tab PO DAILY 10/15/17 Formula with Iron Tab] Memantine HCl [Memantine HCl ER] 28 mg PO DAILY 10/15/17 Paroxetine HCl [Paxil] 40 mg PO DAILY 10/15/17 Pravastatin Sodium 20 mg PO QHS 10/15/17 Rivastigmine 4.6 mg Patch [Exelon 1 ea TRANSDERM. Q24H 10/15/17 Patch 4.6mg] Sodium Chloride [Arlyn-128 5%] 1 applic RIGHT EYE BID 10/15/17 Timolol 0.5% [Timoptic] 1 applic RIGHT EYE BID 10/15/17 miconazole nitrate 2 % topical 1 applic TOPICAL DAILY 12/07/17 powder vitamin A and D 1 applic TOPICAL QHS 12/07/17 Clotrimazole/Betamethasone Dip 1 applicatio TP BID 02/26/19 [Clotrimazole-Betamethasone Crm] Levothyroxine [Synthroid] 125 mcg PO DAILY 02/26/19 Talc/Cellulos/Chloroxy/Aldioxa 1 applicatio TP PRN PRN 02/26/19 [Zeasorb Powder] Mirtazapine 7.5 mg PO QHS 04/21/19 Surgical History: noncontributory Smoking Status: Former smoker - *Family History Paternal History Items: Unknown - Patient unable to provide due to current clinical condition Review of Systems Unable to obtain accurate/complete ROS d/t: Patient unable to provide due to current clinical condition as well as his VTE Information - Inpt Only VTE Present on Admission: No VTE Mechan Device Prophylaxis: None VTE Pharm Prophylaxis ordered?: Yes Patient Problems: Active and Suspected Problems (Last Updated 12/07/17 @ 13:41 by Snehal Hernandez) Pneumonia (Acute) Objective: GENERAL: Markedly dyspneic at rest HEENT: Atraumatic; EYES; Anicteric, Normal Conjunctiva NECK; supple, normal thyroid, RESPIRATORY: Using accessory muscles and breathing, auscultation diminished CARDIOVASCULAR: S1-S2 but tachycardic GI: soft, normoactive bowel sounds, : No Renal angle tenderness; EXTREMITIES: No edema, no clubbing, MUSCULOSKELETAL: no muscle waisting NEURO: Awake; no appear to have any lateralizing signs SKIN: No Rash PSYCH; Flat affect - Physical Exam Vitals/I&O's: Vital Signs Temp Pulse Resp BP Pulse Ox 99.3 F H 99 24 H 110/63 95 04/21/19 09:01 04/21/19 09:01 04/21/19 09:01 04/21/19 09:01 04/21/19 09:01 Oxygen Flow Rate (L/min) 15 Oxygen Delivery Method Non-Rebreather Weight: 68.6 kg Body Mass Index (BMI) 25.1 Intake and Output for Last 24 Hours 04/19/19 04/20/19 04/21/19 23:59 23:59 23:59 Intake Total 1000 / 1000 Balance 1000 / 1000 Microbiology Past 72 Hours 04/21/19 08:11 Mucosa - Nose Influenza Types A,B Direct FA ([facility]) - Final Laboratory Results 04/21/19 07:50: WBC 16.6 H, RBC 3.64 L, Hgb 13.7, Hct 39.8 L, MCV 109.3 H, MCH 37.6 H, MCHC 34.4, RDW Std Deviation 57.3 H, RDW Coeff of Tamia 14.0, Plt Count 142 L, MPV 12.5 H, Immature Gran % (Auto) 0.400, Neut % (Auto) 73.5 H, Lymph % (Auto) 12.3 L, [place] % (Auto) 13.2 H, Eos % (Auto) 0.1, Baso % (Auto) 0.5, Absolute Neuts (auto) 12.2 H, Absolute Lymphs (auto) 2.04, Nucleated RBC % 0, Differential Comment COMMENT, Diff Path Review June04/21/19 07:50: PT Pending, INR Pending, APTT Pending 04/21/19 07:50: Sodium 143, Potassium 3.6, Chloride 109 H, Carbon Dioxide 32.0, Anion Gap 2 L, BUN 18, Creatinine 0.90, Estim Creat Clear Calc 79.72, Est GFR (MDRD) Af Amer 112, Est GFR (MDRD) Non-Af 92, BUN/Creatinine Ratio 20.0, Glucose 114 H, Calcium 8.4 L, Total Bilirubin 0.40, AST 25, ALT 23, Alkaline Phosphatase 68, Total Protein 7.3, Albumin 2.2 L, Globulin 5.1 H, Albumin/Globulin Ratio 0.4 L 04/21/19 07:50: Lactic Acid 1.7 Current Medications Azithromycin 500 mg/ Dextrose 255 mls @ 250 mls/hr IV X1 ONE Stop: 04/21/19 09:30 Last Admin: 04/21/19 08:57 Dose: 250 mls/hr Documented by: Assessment/Plan All Active Problems (Last Updated 12/07/17 @ 13:41 by Snehal Hernandez) Pneumonia (Acute) Contusion of left knee, initial encounter (Acute) Contusion, knee (Acute) Patient is a 58-year-old gentleman with underlying history Down syndrome with dementia who presented with flulike symptoms and patient was found to be significantly hypoxic on admission 1. Acute hypoxic respiratory failure ?Suspected to be secondary to ammonia with [id number] organism with patient being resident of a senior care. Patient was significantly hypoxic on admission with oxygen saturation in the mid 70s. Placed on a nonrebreather. Admitted to the intensive care unit. Patient was also started on broad-spectrum antibiotic therapy and consultation placed to pulmonary/intensive care Dr. Massey. 2. Down syndrome ?Supportive care 3. Early onset dementia ?Supportive care in addition to Memantine and Rivastigmine 4. Seizure disorder ?Discontinue antiseizure medications 5. Hypothyroidism ?Patient is on levothyroxine did continue 6. Dyslipidemia -patient is on statin therapy, continued at home dose 7. DVT prophylaxis ?Enoxaparin Advance planning; did discuss with the patient to a regarding advanced directives as well as CODE STATUS. Did explain the various scenarios involved ( FULL CODE, DNR CCA, DNR CCA with no intubation, and DNR CC and what each meant) patient family initially elected for DNR CCA no intubation. Upon further discussion patient's POA elected for patient to be full code with intubation and CPR if needed. Once patient reached the floor POA changed her mind 1 more time this time electing for patient to remain DNR CCA with no intubation as she had previously decided. Order was placed. Time spent on discussion 22 minutes minutes. Active Medications Acetaminophen (Tylenol) 650 mg PO Q6H PRN PRN PRN Reason: Pain Score 1-10/Temp > 100.7 F Al Hydroxide/Mg Hydroxide (Mylanta Ii) 30 ml PO Q6H PRN PRN PRN Reason: Gastric Burning Albuterol Sulfate (Ventolin Aerosols) 2.5 mg INHALATION Q2H PRN PRN PRN Reason: SOB/Wheezing Last Admin: 04/21/19 12:18 Dose: 2.5 mg Documented by: Dextrose (D50w Syringe) 0 gm IV X1 PRN; Protocol PRN Reason: Hypoglycemia Divalproex Sodium (Depakote) 500 mg PO BID [facility] Docusate Sodium (Colace) 100 mg PO DAILY [facility] Glucagon () 1 mg IM .X1 PRN PRN Reason: Hypoglycemia Guaifenesin (Robitussin) 10 ml PO Q4H PRN PRN PRN Reason: COUGH Potassium Chloride/Sodium Chloride () 1,000 mls @ 150 mls/hr IV .Q6H40M [facility] Last Admin: 04/21/19 13:27 Dose: 150 mls/hr Documented by: Vancomycin IV Pharmacy to Dose (1 ea/ Sodium Chloride) 500 mls @ 250 mls/hr IV X1 PRN; Protocol PRN Reason: Rx to Dose Piperacillin Sod/Tazobactam (Sod 3.375 gm/ Sodium Chloride) 50 mls @ 12.5 mls/hr IV Q8 [facility] Last Admin: 04/21/19 11:29 Dose: 12.5 mls/hr Documented by: Vancomycin HCl (Vancomycin) 1,000 mg in 200 mls @ 200 mls/hr IV Q12H [facility] Levothyroxine Sodium (Synthroid) 125 mcg PO DAILY@0600 [facility] Magnesium Hydroxide (Milk Of Magnesia) 30 ml PO DAILY PRN PRN PRN Reason: Constipation Melatonin (Melatonin) 3 mg PO QHS PRN PRN PRN Reason: INSOMNIA Memantine (Namenda) 10 mg PO BID [facility] Mirtazapine (Remeron) 7.5 mg PO QHS [facility] Ondansetron HCl (Zofran) 4 mg IV Q8H PRN PRN PRN Reason: NAUSEA/VOMITING Paroxetine HCl (Paxil) 40 mg PO DAILY [facility] Pravastatin Sodium (Pravachol) 20 mg PO QHS [facility] Promethazine HCl (Phenergan) 25 mg IM Q6H PRN PRN PRN Reason: Breakthrough Nausea/Vomiting Rivastigmine (Exelon Patch 4.6mg) 1 patch TD DAILY [facility] Sodium Chloride () 10 - 40 ml IV UD PRN PRN Reason: SALINE FLUSH Throat Lozenges (Cepacol Sore Throat Lozenge) 1 lozenge MUCOUS MEM Q2H PRN PRN PRN Reason: SORE THROAT Timolol Maleate (Timoptic) 1 drop RIGHT EYE BID [facility] Clinical Impression(s) from Imaging Studies Chest X-Ray 04/21/19 07:42 IMPRESSION: Findings suggestive of a mild degree of CHF with bibasilar atelectasis superimposed on mild degree of scarring. Electronically Signed: Angel Huntley, at 8:26 EDT , Service support , Inpatient E&M: 54925 Init Hosp L3 Procedures: 12712 Advncd Care Plan 30 Min
[2019-04-21 09:27] LABS: International Normalized Ratio 1.4; Prothrombin Time (Protime)PT. 17.1 SECONDS (11.7-14.9)
[2019-04-21 09:28] LABS: Partial Thromboplast Time 31.2 Seconds (24.1-36.2)
[2019-04-21 10:00] LABS: BNP,B-Type NATRIURETIC PEPTIDE 127.8 pg/mL (0-100)
--- NOTE | 2019-04-21 10:40 | PCM.CON.CC ---
Reason for Consult Date of Consultation: 04/21/19 Reason for Consultation: Acute Hypoxemic Respiratory Failure History of Present Illness: The patient is a 58-year-old male, with a history as outlined below, who presented to the emergency department on April 20 with shortness of breath, hypoxemia and cough. The patient has a baseline history of Down syndrome and dementia. He currently resides [place] [facility]. The patient's sister reported that the patient has very little quality of life at baseline. He has apparently been declining in health and weight over the course of the last 9 months. On presentation to the emergency department, the patient was noted to be febrile, tachycardic and tachypneic. Laboratory evaluation revealed an elevated white blood cell count to 17,000. Chemistry profile was largely unremarkable. BNP was only mildly elevated to 127. MRSA screen was negative. Plain film chest x-ray was suggestive of a right lower lobe airspace opacity. The patient was subsequently placed on broad-spectrum antimicrobials and admitted to the medical intensive care unit for further management. On arrival to the ICU, the patient appeared to be in market distress. Orders were placed to initiate him on Airvo therapy. The patient has a very weak cough and has been largely unable to produce any sputum. I did personally speak with the patient's sister who once again reiterated that she would not want the patient to be intubated and placed on invasive mechanical ventilatory support. Past Medical History Medical History: Medical History (Last Updated 12/07/17 @ 13:41 by Snehal Hernandez) Difficulty balancing R29.818 Fatigue R53.83 Incontinence R32 Knee pain M25.569 Limb weakness R29.898 Seasonal allergies J30.2 Thyroid disease E07.9 Allergies No Known Allergies Allergy (Verified 02/26/19 20:24) Home Medications: Ambulatory Orders Medication Instructions Recorded Divalproex Sodium [Depakote] 500 mg PO BID 10/15/17 Docusate Sodium [Colace] 100 mg PO DAILY 10/15/17 Iron/Mv,Stress Form [Stress 1 tab PO DAILY 10/15/17 Formula with Iron Tab] Memantine HCl [Memantine HCl ER] 28 mg PO DAILY 10/15/17 Paroxetine HCl [Paxil] 40 mg PO DAILY 10/15/17 Pravastatin Sodium 20 mg PO QHS 10/15/17 Rivastigmine 4.6 mg Patch [Exelon 1 ea TRANSDERM. Q24H 10/15/17 Patch 4.6mg] Sodium Chloride [Arlyn-128 5%] 1 applic RIGHT EYE BID 10/15/17 Timolol 0.5% [Timoptic] 1 applic RIGHT EYE BID 10/15/17 miconazole nitrate 2 % topical 1 applic TOPICAL DAILY 12/07/17 powder vitamin A and D 1 applic TOPICAL QHS 12/07/17 Clotrimazole/Betamethasone Dip 1 applicatio TP BID 02/26/19 [Clotrimazole-Betamethasone Crm] Levothyroxine [Synthroid] 125 mcg PO DAILY 02/26/19 Talc/Cellulos/Chloroxy/Aldioxa 1 applicatio TP PRN PRN 02/26/19 [Zeasorb Powder] Mirtazapine 7.5 mg PO QHS 04/21/19 Surgical History: noncontributory Smoking Status: Former smoker Review of Systems Unable to obtain accurate/complete ROS d/t: Due to baseline MRDD, dementia and superimposed encephalopathy Objective: The patient's most recent lab work, culture data and imaging studies have all been personally reviewed. Respiratory viral panel and blood cultures are pending. - Physical Exam Vitals/I&O's: Vital Signs Temp Pulse Resp BP Pulse Ox 99.3 F H 105 H 22 H 110/63 96 04/21/19 09:33 04/21/19 09:33 04/21/19 09:33 04/21/19 09:33 04/21/19 09:33 Oxygen Flow Rate (L/min) 15 Oxygen Delivery Method Non-Rebreather Weight: 151 lb 3.794 oz Body Mass Index (BMI) 25.1 Intake and Output for Last 24 Hours 04/19/19 04/20/19 04/21/19 23:59 23:59 23:59 Intake Total 1000 / 1000 Balance 1000 / 1000 General: Lethargic, - - Quite ill and toxic in appearance HEENT: Atraumatic, PERRLA, Normocephalic Oral: Dry Mucosa Neck: Supple, No Nodes, Trachea Midline Lungs: Diminished, Rhonchi, Tachypneic Cardiovascular: Normal S1, Normal S2, Tachycardic Abdomen: Bowel Sounds Present, Soft, Non Tender Extremities: No clubbing, No cyanosis, No edema Skin: No breakdown Musculoskeletal: No Tenderness to Palpation of Joints or Extremities Lymphatic: No Cervical, Supraclavicular, or Inguinal Adenopathy Neurological: - - The patient is quite lethargic and only responsive minimally to painful stimulation. Psych/Mental Status: Flat Affect Labs (Last 48 Hours) 04/21/19 04/21/19 04/21/19 07:50 07:50 07:50 WBC 16.6 H RBC 3.64 L Hgb 13.7 Hct 39.8 L MCV 109.3 H MCH 37.6 H MCHC 34.4 RDW Std Deviation 57.3 H RDW Coeff of Tamia 14.0 Plt Count 142 L MPV 12.5 H Immature Gran % (Auto) 0.400 Neut % (Auto) 73.5 H Lymph % (Auto) 12.3 L [place] % (Auto) 13.2 H Eos % (Auto) 0.1 Baso % (Auto) 0.5 Absolute Neuts (auto) 12.2 H Absolute Lymphs (auto) 2.04 Nucleated RBC % 0 Differential Comment COMMENT Diff Path Review May foll PT 17.1 H INR 1.4 APTT 31.2 Sodium 143 Potassium 3.6 Chloride 109 H Carbon Dioxide 32.0 Anion Gap 2 L BUN 18 Creatinine 0.90 Estim Creat Clear Calc 79.72 Est GFR (MDRD) Af Amer 112 Est GFR (MDRD) Non-Af 92 BUN/Creatinine Ratio 20.0 Glucose 114 H Lactic Acid Calcium 8.4 L Total Bilirubin 0.40 AST 25 ALT 23 Alkaline Phosphatase 68 B-Natriuretic Peptide Total Protein 7.3 Albumin 2.2 L Globulin 5.1 H Albumin/Globulin Ratio 0.4 L 04/21/19 04/21/19 07:50 07:50 WBC RBC Hgb Hct MCV MCH MCHC RDW Std Deviation RDW Coeff of Tamia Plt Count MPV Immature Gran % (Auto) Neut % (Auto) Lymph % (Auto) [place] % (Auto) Eos % (Auto) Baso % (Auto) Absolute Neuts (auto) Absolute Lymphs (auto) Nucleated RBC % Differential Comment Diff Path Review PT INR APTT Sodium Potassium Chloride Carbon Dioxide Anion Gap BUN Creatinine Estim Creat Clear Calc Est GFR (MDRD) Af Amer Est GFR (MDRD) Non-Af BUN/Creatinine Ratio Glucose Lactic Acid 1.7 Calcium Total Bilirubin AST ALT Alkaline Phosphatase B-Natriuretic Peptide 127.8 H Total Protein Albumin Globulin Albumin/Globulin Ratio Microbiology 04/21/19 08:11 Mucosa - Nose Influenza Types A,B Direct FA ([facility]) - Final Clinical Impression(s) from Imaging Studies Chest X-Ray 04/21/19 07:42 IMPRESSION: Findings suggestive of a mild degree of CHF with bibasilar atelectasis superimposed on mild degree of scarring. Electronically Signed: Angel Huntley, at 8:26 EDT , Service support , Current Medications Acetaminophen (Tylenol) 650 mg PO Q6H PRN PRN PRN Reason: Pain Score 1-10/Temp > 100.7 F Al Hydroxide/Mg Hydroxide (Mylanta Ii) 30 ml PO Q6H PRN PRN PRN Reason: Gastric Burning Albuterol Sulfate (Ventolin Aerosols) 2.5 mg INHALATION Q2H PRN PRN PRN Reason: SOB/Wheezing Dextrose (D50w Syringe) 0 gm IV X1 PRN; Protocol PRN Reason: Hypoglycemia Glucagon () 1 mg IM .X1 PRN PRN Reason: Hypoglycemia Guaifenesin (Robitussin) 10 ml PO Q4H PRN PRN PRN Reason: COUGH Potassium Chloride/Sodium Chloride () 1,000 mls @ 150 mls/hr IV .Q6H40M [facility] Vancomycin IV Pharmacy to Dose (1 ea/ Sodium Chloride) 500 mls @ 250 mls/hr IV X1 PRN; Protocol PRN Reason: Rx to Dose Piperacillin Sod/Tazobactam (Sod 3.375 gm/ Sodium Chloride) 50 mls @ 12.5 mls/hr IV Q8 [facility] Vancomycin HCl 1,750 mg/ (Sodium Chloride) 535 mls @ 250 mls/hr IV X1 ONE Stop: 04/21/19 13:38 Magnesium Hydroxide (Milk Of Magnesia) 30 ml PO DAILY PRN PRN PRN Reason: Constipation Melatonin (Melatonin) 3 mg PO QHS PRN PRN PRN Reason: INSOMNIA Ondansetron HCl (Zofran) 4 mg IV Q8H PRN PRN PRN Reason: NAUSEA/VOMITING Promethazine HCl (Phenergan) 25 mg IM Q6H PRN PRN PRN Reason: Breakthrough Nausea/Vomiting Throat Lozenges (Cepacol Sore Throat Lozenge) 1 lozenge MUCOUS MEM Q2H PRN PRN PRN Reason: SORE THROAT Assessment/Plan RECOMMENDATIONS: 1. Continue current supportive measures with Airvo to maintain oxygen saturations at or above 90%. 2. Continue aggressive bronchopulmonary hygiene. Initiate IPV therapy as tolerated. 3. Obtain arterial blood gas. 4. Broaden antimicrobials to include vancomycin and Zosyn. 5. Obtain echocardiogram and check troponin. IMPRESSIONS: 1. Acute hypoxemic respiratory failure Likely secondary to right lower lobe pneumonia and possible CHF. Will check troponin and obtain echocardiogram. Antibiotics have been broadened to include Zosyn and vancomycin. Respiratory viral panel, blood and sputum cultures are pending. Given that the patient is unlikely to tolerate any form of conventional BiPAP or CPAP, will place him on Airvo and titrate FiO2 to maintain oxygen saturations at or above 90%. Orders for IPV therapy will also be placed to assist with any sputum expectoration. 2. Baseline MRDD/dementia/hypothyroidism/hyperlipidemia Complicates care, management, recovery and prognosis. P.o. medications are on hold due to n.p.o. status. 3. CODE status: Discussed CODE status at length including difference between FULL code, DNR-CCA and DNR-CC status. Following discussions about the differences in these status, patient's family requested DNR CCA CODE STATUS. Advanced Care Planning Face to Face Time: 13 minutes This note was generated with [employer] dictation software. It may contain incorrect words, spelling, and punctuation that were not noted in checking the note before signing. Inpatient E&M: 21719 Init Hosp L3 Procedures: 77373 Advncd Care Plan 30 Min
[2019-04-21 11:22] LABS: AST(SGOT) 26 U/L (15-37); Alanine Aminotransfer ALT/SGPT 22 U/L (16-61); Albumin, Serum 2.3 g/dL (3.2-5.0); Alkaline Phosphatase 66 U/L (45-117); Bilirubin, Direct 0.14 mg/dL (0.00-0.30); Magnesium 1.8 mg/dL (1.6-2.6); Protein, Total 7.3 g/dL (6.4-8.2)
[2019-04-21 12:41] LABS: Base Excess 3 mmol/L (-2 to +2); Blood Gas Specimen Type ART; O2 Delivery Device Nasal Can; PO2 62 mmHG (75-100); SITE R Radial; SO2 91 % (95-99); Time Given 1236; Total Carbon Dioxide 29 mmol/L
[2019-04-21 12:56] LABS: M R Staph aureus DNA By PCR Negative (Negative); Probe Check PASS; Specimen Processing Control PASS
--- NOTE | 2019-04-21 13:20 | ECHOD_ITS ---
Reason For Study: DYSPNEA Procedure This was a 2D Doppler, Color Flow transthoracic echocardiogram. The study was technically limited. The exam was of poor technical quality due to not cooperative with positioning- sitting up to right side. Exam performed portable in ICU/CCU. Left Ventricle Normal LV size. The estimated ejection fraction is 55 %. Unable to assess diastolic dysfunction. Right Ventricle Normal RV size. Normal systolic function. Atria Normal left atrium. The right atrium is not well visualized. Mitral Valve There is no mitral valve stenosis. No mitral valve insufficiency. Tricuspid Valve There is no tricuspid stenosis. Trivial tricuspid valve insufficiency. Unable to estimate RV systolic pressure due to insufficient tricuspid regurgitant envelope. Aortic Valve The aortic valve is not well visualized. No aortic valve insufficiency. Pulmonic Valve The pulmonic valve is not well visualized. Great Vessels not well visualized. Pericardium/Pleural No pericardial effusion. MMode/2D Measurements & Calculations LVIDd: 4.2 cm IVSd: 0.69 cm LVIDs: 3.1 cm LVPWd: 0.76 cm FS: 27.3 % Doppler Measurements & Calculations TR max mahad: 243.5 cm/sec TR max P.7 mmHg Interpretation Summary The study was technically limited. The estimated ejection fraction is 55 %. Unable to assess diastolic dysfunction. Trivial tricuspid valve insufficiency. The study was technically difficult. The study was technically limited. Ordering Physician: Malcom Massey Referring Physician: GAETANO HUTCHINSON [facility] Performed By: Shira Elena, JENNIE, RVT
--- NOTE | 2019-04-21 14:19 | CASEMGMT ---
Social Work SW met with pt sister Jessica Morse who is patient's guardian. Jessica states pt has been in a [facility] for the last 20 years through [facility] and although was once able to care for himself, he now requires assistance from staff for his care needs. Pt uses a wheelchair and is able to go to [facility] daily. Jessica also stating pt has dementia and pt no longer knows her. Jessica is questioning if pt can return to the m[facility] due to pt care needs, but understands it is too early at this time to make a determination. SW will follow for support and d/c planning. SELENE Curry
--- NOTE | 2019-04-21 14:30 | PCM.RX.CS ---
Consult Pharmacy has been consulted to manage selected antiobiotic: Vancomycin Type of Consult: New start Prior Doses of Antibiotics Received/Current Regimen: Medications Discontinued Medications Vancomycin HCl 1,750 mg/ (Sodium Chloride) 535 mls @ 250 mls/hr IV X1 ONE Stop: 04/21/19 13:38 Last Admin: 04/21/19 13:51 Dose: Infused Documented by: Labs: Sodium 143 mmol/L (136-145) 04/21/19 07:50 Potassium 3.6 mmol/L (3.5-5.1) 04/21/19 07:50 Chloride 109 mmol/L (98-107) H 04/21/19 07:50 Carbon Dioxide 32.0 mmol/L (21.0-32.0) 04/21/19 07:50 Anion Gap 2 (5-15) L 04/21/19 07:50 BUN 18 mg/dL (7-18) 04/21/19 07:50 Creatinine 0.90 mg/dL (0.70-1.30) 04/21/19 07:50 Est GFR (MDRD) Af Amer 112 mL/min (>60) 04/21/19 07:50 Est GFR (MDRD) Non-Af 92 mL/min (>60) 04/21/19 07:50 BUN/Creatinine Ratio 20.0 RATIO (10-20) 04/21/19 07:50 Glucose 114 mg/dL (74-106) H 04/21/19 07:50 Microbiology: Microbiology 04/21/19 08:11 Mucosa - Nose Influenza Types A,B Direct FA ([facility]) - Final Weight used for dosin kg Estimated Creatinine Clearance: 79 mL/min Goal Trough: 15-20 mcg/mL Pharmacy Plan for Drug Dosinmg IV given x1 in ED, 1000mg IV q12h after per policy with trough prior to 4th dose. Pharmacy Service will continue to monitor and adjust dosing as required. Follow-Up Labs: Trough Vancomycin - 04/22 @ 0030
--- NOTE | 2019-04-21 15:57 | CHAPLAIN ---
met sister of patient in waiting room; sister spoke of her brother and his health need and then asked about spiritual matters for patient's future; sister welcomed prayer for the patient and herself
[2019-04-21] MEDS: Acetaminophen 650 MG Suppository RECTAL (17:00)
[2019-04-21 21:36] LABS: Bacteria 0 SEEN /hpf (None Seen); Mucous, Urine 0 SEEN /hpf (<or=2+); Squamous Epithelial Cells - UA 0 SEEN /hpf (0-5)
[2019-04-21 21:37] LABS: Color, Urine Yellow (Yellow); Glucose, Dipstick Normal (Normal); Ketone-Dipstick 5 mg/dl (Negative); Leukocyte Esterase-Dipstick 25 /ul (Negative); Nitrite-Dipstick Negative (Negative); Occult Blood-Urine 250 /ul (Negative); Protein-Dipstick 30 mg/dl (Negative); Urine Bilirubin Dipstick Negative (Negative); Urine Clarity Sl. Cloudy (Clear); Urine Urobilinogen Normal (Normal)
[2019-04-21 21:43] LABS: Red Blood Cells-Urine 0-5 SEEN /hpf (0-5); White Blood Cells 0-5 SEEN /hpf (0-5)
[2019-04-22] VITALS (38 sets, daily range): BP systolic 83–189; BP diastolic 36–139; PULSE 78–120; RESP 11–30; TEMP 37.2–38.3; O2SAT 66–99
[2019-04-22] MEDS: Vancomycin IV 1,000 MG/200 ML BAG 200 MG IV ×2 (01:52→13:08)
--- NOTE | 2019-04-22 06:41 | PN_ITS ---
Subjective: The patient was seen and examined at the bedside this morning. Events from the last 24 hours have been reviewed. The patient continues to have a low-grade fever, but overall the patient's fever curve is improving. T-max over the last 24 hours was 102.4 ?F. The patient remains hemodynamically stable on Airvo with an FiO2 requirement of 88%. The patient's mentation has been improving. He still remains restless. Objective: The patient's most recent lab work, culture data and imaging studies have all been personally reviewed. Respiratory viral panel was negative. Strep and urine Legionella antigens are pending. Blood cultures are pending. General: - - Seems more alert than yesterday but is still lethargic. HEENT: Atraumatic, Normocephalic Oral: Dry Mucosa Neck: Supple, No Nodes, Trachea Midline Lungs: No wheeze, No rales, Diminished, Rhonchi Cardiovascular: Regular rate, Regular Rhythm, Normal S1, Normal S2 Abdomen: Bowel Sounds Present, Soft, Non Tender Extremities: No clubbing, No cyanosis, No edema Skin: No breakdown Musculoskeletal: No Tenderness to Palpation of Joints or Extremities Lymphatic: No Cervical, Supraclavicular, or Inguinal Adenopathy Neurological: - - Baseline neuropsychiatric deficit. Patient is nonverbal. Vital Signs Temp Pulse Resp BP Pulse Ox 99.3 F H 82 15 106/88 H 99 04/22/19 06:00 04/22/19 06:00 04/22/19 06:00 04/22/19 06:00 04/22/19 06:00 Oxygen Flow Rate (L/min) 15 Oxygen Delivery Method CPAP Weight: 153 lb 14.122 oz Body Mass Index (BMI) 25.2 Intake and Output for Last 24 Hours 04/20/19 04/21/19 04/22/19 23:59 23:59 23:59 Intake Total 2334.5 / 2334.5 867.5 / 867.5 Output Total 0 / 200 300 / 300 Balance 2334.5 / 2134.5 567.5 / 567.5 Labs (Last 48 Hours) 04/21/19 04/21/19 04/21/19 07:50 07:50 07:50 WBC 16.6 H RBC 3.64 L Hgb 13.7 Hct 39.8 L MCV 109.3 H MCH 37.6 H MCHC 34.4 RDW Std Deviation 57.3 H RDW Coeff of Tamia 14.0 Plt Count 142 L MPV 12.5 H Immature Gran % (Auto) 0.400 Neut % (Auto) 73.5 H Lymph % (Auto) 12.3 L Winn % (Auto) 13.2 H Eos % (Auto) 0.1 Baso % (Auto) 0.5 Absolute Neuts (auto) 12.2 H Absolute Lymphs (auto) 2.04 Nucleated RBC % 0 Differential Comment COMMENT Diff Path Review May foll PT 17.1 H INR 1.4 APTT 31.2 Specimen Type Sample Site pH Bicarbonate Actual POC Total CO2 Base Excess O2 Saturation ABG pCO2 ABG pO2 Evin Test O2 Delivery Device Blood Gas Notified Whom Blood Gas Notified Time Sodium 143 Potassium 3.6 Chloride 109 H Carbon Dioxide 32.0 Anion Gap 2 L BUN 18 Creatinine 0.90 Estim Creat Clear Calc 79.72 Est GFR (MDRD) Af Amer 112 Est GFR (MDRD) Non-Af 92 BUN/Creatinine Ratio 20.0 Glucose 114 H Lactic Acid Calcium 8.4 L Magnesium Total Bilirubin 0.40 Direct Bilirubin AST 25 ALT 23 Alkaline Phosphatase 68 Troponin I B-Natriuretic Peptide Total Protein 7.3 Albumin 2.2 L Globulin 5.1 H Albumin/Globulin Ratio 0.4 L Urine Color Urine Clarity Urine pH Ur Specific [place] Urine Protein Urine Glucose (UA) Urine Ketones Urine Occult Blood Urine Nitrite Urine Bilirubin Urine Urobilinogen Ur Leukocyte Esterase Urine RBC Urine WBC Ur Squamous Epith Cells Urine Bacteria Urine Mucus MRSA (PCR) Miscellaneous Test 04/21/19 04/21/19 04/21/19 07:50 07:50 09:35 WBC RBC Hgb Hct MCV MCH MCHC RDW Std Deviation RDW Coeff of Tamia Plt Count MPV Immature Gran % (Auto) Neut % (Auto) Lymph % (Auto) Winn % (Auto) Eos % (Auto) Baso % (Auto) Absolute Neuts (auto) Absolute Lymphs (auto) Nucleated RBC % Differential Comment Diff Path Review PT INR APTT Specimen Type Sample Site pH Bicarbonate Actual POC Total CO2 Base Excess O2 Saturation ABG pCO2 ABG pO2 Evin Test O2 Delivery Device Blood Gas Notified Whom Blood Gas Notified Time Sodium Potassium Chloride Carbon Dioxide Anion Gap BUN Creatinine Estim Creat Clear Calc Est GFR (MDRD) Af Amer Est GFR (MDRD) Non-Af BUN/Creatinine Ratio Glucose Lactic Acid 1.7 Calcium Magnesium 1.8 Total Bilirubin 0.40 Direct Bilirubin 0.14 AST 26 ALT 22 Alkaline Phosphatase 66 Troponin I B-Natriuretic Peptide 127.8 H Total Protein 7.3 Albumin 2.3 L Globulin 5.0 H Albumin/Globulin Ratio Urine Color Urine Clarity Urine pH Ur Specific [place] Urine Protein Urine Glucose (UA) Urine Ketones Urine Occult Blood Urine Nitrite Urine Bilirubin Urine Urobilinogen Ur Leukocyte Esterase Urine RBC Urine WBC Ur Squamous Epith Cells Urine Bacteria Urine Mucus MRSA (PCR) Miscellaneous Test 04/21/19 04/21/19 04/21/19 10:31 12:37 14:00 WBC RBC Hgb Hct MCV MCH MCHC RDW Std Deviation RDW Coeff of Tamia Plt Count MPV Immature Gran % (Auto) Neut % (Auto) Lymph % (Auto) Winn % (Auto) Eos % (Auto) Baso % (Auto) Absolute Neuts (auto) Absolute Lymphs (auto) Nucleated RBC % Differential Comment Diff Path Review PT INR APTT Specimen Type ART Sample Site R Radial pH 7.40 Bicarbonate Actual 28.0 H POC Total CO2 29 Base Excess 3 H O2 Saturation 91 L ABG pCO2 45.0 ABG pO2 62 L Evin Test NA O2 Delivery Device Nasal Can Blood Gas Notified Whom ICU MD Blood Gas Notified Time 1236 Sodium Potassium Chloride Carbon Dioxide Anion Gap BUN Creatinine Estim Creat Clear Calc Est GFR (MDRD) Af Amer Est GFR (MDRD) Non-Af BUN/Creatinine Ratio Glucose Lactic Acid Calcium Magnesium Total Bilirubin Direct Bilirubin AST ALT Alkaline Phosphatase Troponin I < 0.015 B-Natriuretic Peptide Total Protein Albumin Globulin Albumin/Globulin Ratio Urine Color Urine Clarity Urine pH Ur Specific [place] Urine Protein Urine Glucose (UA) Urine Ketones Urine Occult Blood Urine Nitrite Urine Bilirubin Urine Urobilinogen Ur Leukocyte Esterase Urine RBC Urine WBC Ur Squamous Epith Cells Urine Bacteria Urine Mucus MRSA (PCR) Negative Miscellaneous Test 04/21/19 04/21/19 17:00 20:40 WBC RBC Hgb Hct MCV MCH MCHC RDW Std Deviation RDW Coeff of Tamia Plt Count MPV Immature Gran % (Auto) Neut % (Auto) Lymph % (Auto) Winn % (Auto) Eos % (Auto) Baso % (Auto) Absolute Neuts (auto) Absolute Lymphs (auto) Nucleated RBC % Differential Comment Diff Path Review PT INR APTT Specimen Type Sample Site pH Bicarbonate Actual POC Total CO2 Base Excess O2 Saturation ABG pCO2 ABG pO2 Evin Test O2 Delivery Device Blood Gas Notified Whom Blood Gas Notified Time Sodium Potassium Chloride Carbon Dioxide Anion Gap BUN Creatinine Estim Creat Clear Calc Est GFR (MDRD) Af Amer Est GFR (MDRD) Non-Af BUN/Creatinine Ratio Glucose Lactic Acid Calcium Magnesium Total Bilirubin Direct Bilirubin AST ALT Alkaline Phosphatase Troponin I B-Natriuretic Peptide Total Protein Albumin Globulin Albumin/Globulin Ratio Urine Color Yellow Urine Clarity Sl. Cloudy Urine pH 6.0 Ur Specific [place] 1.020 Urine Protein 30 H Urine Glucose (UA) Normal Urine Ketones 5 H Urine Occult Blood 250 H Urine Nitrite Negative Urine Bilirubin Negative Urine Urobilinogen Normal Ur Leukocyte Esterase 25 H Urine RBC 0-5 SEEN Urine WBC 0-5 SEEN Ur Squamous Epith Cells 0 SEEN Urine Bacteria 0 SEEN Urine Mucus 0 SEEN MRSA (PCR) Miscellaneous Test Pending Microbiology 04/21/19 10:15 Mucosa - Nasopharyngeal Respiratory Panel (PCR) - Final 04/21/19 08:11 Mucosa - Nose Influenza Types A,B Direct FA (MARILUZ) - Final Clinical Impression(s) from Imaging Studies Chest X-Ray 04/21/19 07:42 IMPRESSION: Findings suggestive of a mild degree of CHF with bibasilar atelectasis superimposed on mild degree of scarring. Electronically Signed: Angel Yuko, at 8:26 EDT , Service support , Medical Necessity - Tobacco Use Smoking Status: Unknown if ever smoked Assessment/Plan All Active Problems (Last Reviewed 04/21/19 @ 15:[address] Esequiel Freitas MD) Pneumonia (Acute) Contusion of left knee, initial encounter (Acute) Contusion, knee (Acute) RECOMMENDATIONS: 1. Continue empiric antimicrobials. 2. Wean FiO2 to maintain oxygen saturations at or above 90%. 3. Continue aggressive bronchopulmonary hygiene with IS, PEP and IPV therapy. 4. Continue gentle IV fluid hydration to offset insensible losses. 5. Continue appropriate DVT prophylaxis. 6. Await results of COVID 19 testing. IMPRESSIONS: 1. Acute hypoxemic respiratory failure Likely secondary to right lower lobe pneumonia and possible CHF. Broad-spectrum antimicrobials will be continued, pending infectious work-up. Respiratory viral panel was negative. Continue to wean FiO2 to maintain oxygen saturations at or above 90%. Continue aggressive bronchopulmonary hygiene as tolerated by the patient. Maintain appropriate precautions while awaiting results of COVID19 testing. 2. Baseline MRDD/dementia/hypothyroidism/hyperlipidemia Complicates care, management, recovery and prognosis. P.o. medications are on hold due to n.p.o. status. The patient will require speech therapy evaluation prior to advancing diet. Accordingly, dextrose containing supplemental IV fluids will be continued for now. 3. CODE status: DNR CCA, no intubation This note was generated with [employer] dictation software. It may contain incorrect words, spelling, and punctuation that were not noted in checking the note before signing. Inpatient E&M: 54312 [facility] Hosp L3
[2019-04-22] MEDS: Albuterol 2.5 MG/3 ML VIAL.NEB. INHALATION ×3 (07:22→19:53)
--- NOTE | 2019-04-22 07:49 | PN_ITS ---
Patient Problems: Active and Suspected Problems (Last Reviewed 04/21/19 @ 15:[address] Esequiel Freitas MD) Pneumonia (Acute) Reason for Visit: Acute hypoxic respiratory failure. Baseline MRDD Multiple comorbidities Objective: Seen and examined at bedside. Overnight events discussed with the patient nurs e. Patient has low-grade fever, T-max 102.4 Fahrenheit. On high flow oxygen, Airvo, currently 75% down from 90%. Patient has sudden onset, intermittent involuntary movements, shaking in upper torso, unrelated with time/periodicity related to baseline MRDD Vitals/I&O's: Vital Signs Temp Pulse Resp BP Pulse Ox 99.3 F H 82 15 106/88 H 99 04/22/19 06:00 04/22/19 06:00 04/22/19 06:00 04/22/19 06:00 04/22/19 06:00 Oxygen Flow Rate (L/min) 15 Oxygen Delivery Method CPAP Weight: 153 lb 14.122 oz Body Mass Index (BMI) 25.2 Intake and Output for Last 24 Hours 04/20/19 04/21/19 04/22/19 23:59 23:59 23:59 Intake Total 2334.5 / 2334.5 867.5 / 867.5 Output Total 0 / 200 300 / 300 Balance 2334.5 / 2134.5 567.5 / 567.5 General: Lethargic, - - Baseline MRDD, cognitive deficit, nonverbal HEENT: Atraumatic, PERRLA, - - EOMI cannot be evaluated Oral: - - On high flow oxygen Neck: Supple, No JVD, Negative Carotid Bruits Lungs: Diminished, Rhonchi, Short of Breath Cardiovascular: Regular rate, Normal S1, Normal S2, No murmurs Abdomen: Bowel Sounds Present, Soft, Non Tender, Non-Distended, - - Panchal catheter, dark straw-colored urine. Urine output 300 mL since 12 midnight Positive fluid about 4 L since admission Musculoskeletal: Arthritic Changes, Muscle Wasting, Tenderness - Contracture in lower extremity joints Microbiology Past 72 Hours 04/21/19 10:15 Mucosa - Nasopharyngeal Respiratory Panel (PCR) - Final 04/21/19 08:11 Mucosa - Nose Influenza Types A,B Direct FA (MARILUZ) - Final Laboratory Results 04/21/19 07:50: WBC 16.6 H, RBC 3.64 L, Hgb 13.7, Hct 39.8 L, MCV 109.3 H, MCH 37.6 H, MCHC 34.4, RDW Std Deviation 57.3 H, RDW Coeff of Tamia 14.0, Plt Count 142 L, MPV 12.5 H, Immature Gran % (Auto) 0.400, Neut % (Auto) 73.5 H, Lymph % (Auto) 12.3 L, Dale % (Auto) 13.2 H, Eos % (Auto) 0.1, Baso % (Auto) 0.5, Absolute Neuts (auto) 12.2 H, Absolute Lymphs (auto) 2.04, Nucleated RBC % 0, Differential Comment COMMENT, Diff Path Review June04/21/19 07:50: PT 17.1 H, INR 1.4, APTT 31.2 04/21/19 07:50: Sodium 143, Potassium 3.6, Chloride 109 H, Carbon Dioxide 32.0, Anion Gap 2 L, BUN 18, Creatinine 0.90, Estim Creat Clear Calc 79.72, Est GFR (MDRD) Af Amer 112, Est GFR (MDRD) Non-Af 92, BUN/Creatinine Ratio 20.0, Glucose 114 H, Calcium 8.4 L, Total Bilirubin 0.40, AST 25, ALT 23, Alkaline Phosphatase 68, Total Protein 7.3, Albumin 2.2 L, Globulin 5.1 H, Albumin/Globulin Ratio 0.4 L 04/21/19 07:50: Lactic Acid 1.7 04/21/19 07:50: B-Natriuretic Peptide 127.8 H 04/21/19 09:35: Magnesium 1.8, Total Bilirubin 0.40, Direct Bilirubin 0.14, AST 26, ALT 22, Alkaline Phosphatase 66, Total Protein 7.3, Albumin 2.3 L, Globulin 5.0 H 04/21/19 10:31: MRSA (PCR) Negative 04/21/19 12:37: Specimen Type ART, Sample Site R Radial, pH 7.40, Bicarbonate Actual 28.0 H, POC Total CO2 29, Base Excess 3 H, O2 Saturation 91 L, ABG pCO2 45.0, ABG pO2 62 L, Evin Test NA, O2 Delivery Device Nasal Can, Blood Gas Notified Whom ICU , Blood Gas Notified Time 1236 04/21/19 14:00: Troponin I < 0.015 04/21/19 17:00: Miscellaneous Test Pending 04/21/19 20:40: Urine Color Yellow, Urine Clarity Sl. Cloudy, Urine pH 6.0, Ur Specific Mullen 1.020, Urine Protein 30 H, Urine Glucose (UA) Normal, Urine Ketones 5 H, Urine Occult Blood 250 H, Urine Nitrite Negative, Urine Bilirubin Negative, Urine Urobilinogen Normal, Ur Leukocyte Esterase 25 H, Urine RBC 0-5 SEEN, Urine WBC 0-5 SEEN, Ur Squamous Epith Cells 0 SEEN, Urine Bacteria 0 SEEN, Urine Mucus 0 SEEN Current Medications Acetaminophen (Tylenol) 650 mg PO Q6H PRN PRN PRN Reason: Pain Score 1-10/Temp > 100.7 F Acetaminophen (Tylenol) 650 mg RECTAL Q6H PRN PRN PRN Reason: HEADACHE/FEVER (T>100F) Last Admin: 04/21/19 17:00 Dose: 650 mg Documented by: Al Hydroxide/Mg Hydroxide (Mylanta Ii) 30 ml PO Q6H PRN PRN PRN Reason: Gastric Burning Albuterol Sulfate (Ventolin Aerosols) 2.5 mg INHALATION Q2H PRN PRN PRN Reason: SOB/Wheezing Last Admin: 04/22/19 07:22 Dose: 2.5 mg Documented by: Dextrose (D50w Syringe) 0 gm IV X1 PRN; Protocol PRN Reason: Hypoglycemia Divalproex Sodium (Depakote) 500 mg PO BID [facility] Last Admin: 04/21/19 20:30 Dose: Not Given Documented by: Docusate Sodium (Colace) 100 mg PO DAILY [facility] Enoxaparin Sodium (Lovenox) 40 mg SC DAILY [facility] Glucagon () 1 mg IM .X1 PRN PRN Reason: Hypoglycemia Guaifenesin (Robitussin) 10 ml PO Q4H PRN PRN PRN Reason: COUGH Potassium Chloride/Sodium Chloride () 1,000 mls @ 150 mls/hr IV .Q6H40M [facility] Last Admin: 04/22/19 00:44 Dose: 150 mls/hr Documented by: Vancomycin IV Pharmacy to Dose (1 ea/ Sodium Chloride) 500 mls @ 250 mls/hr IV X1 PRN; Protocol PRN Reason: Rx to Dose Piperacillin Sod/Tazobactam (Sod 3.375 gm/ Sodium Chloride) 50 mls @ 12.5 mls/hr IV Q8 [facility] Last Admin: 04/22/19 05:55 Dose: 12.5 mls/hr Documented by: Vancomycin HCl (Vancomycin) 1,000 mg in 200 mls @ 200 mls/hr IV Q12H [facility] Last Infusion: 04/22/19 03:58 Dose: Infused Documented by: Dextrose/Sodium Chloride () 1,000 mls @ 100 mls/hr IV .Q10H [facility] Levothyroxine Sodium (Synthroid) 125 mcg PO DAILY@0600 [facility] Last Admin: 04/22/19 05:35 Dose: Not Given Documented by: Magnesium Hydroxide (Milk Of Magnesia) 30 ml PO DAILY PRN PRN PRN Reason: Constipation Melatonin (Melatonin) 3 mg PO QHS PRN PRN PRN Reason: INSOMNIA Memantine (Namenda) 10 mg PO BID [facility] Last Admin: 04/21/19 20:30 Dose: Not Given Documented by: Mirtazapine (Remeron) 7.5 mg PO QHS [facility] Last Admin: 04/21/19 20:31 Dose: Not Given Documented by: Ondansetron HCl (Zofran) 4 mg IV Q8H PRN PRN PRN Reason: NAUSEA/VOMITING Paroxetine HCl (Paxil) 40 mg PO DAILY [facility] Pravastatin Sodium (Pravachol) 20 mg PO QHS [facility] Last Admin: 04/21/19 20:30 Dose: Not Given Documented by: Promethazine HCl (Phenergan) 25 mg IM Q6H PRN PRN PRN Reason: Breakthrough Nausea/Vomiting Rivastigmine (Exelon Patch 4.6mg) 1 patch TD DAILY [facility] Sodium Chloride () 10 - 40 ml IV UD PRN PRN Reason: SALINE FLUSH Throat Lozenges (Cepacol Sore Throat Lozenge) 1 lozenge MUCOUS MEM Q2H PRN PRN PRN Reason: SORE THROAT Timolol Maleate (Timoptic) 1 drop RIGHT EYE BID [facility] Last Admin: 04/21/19 22:46 Dose: Not Given Documented by: STROKE Vital Signs/Narrative: Vital Signs Temp Pulse Resp BP Pulse Ox 04/22/19 06:00 99.3 F H 82 15 106/88 H 99 04/22/19 05:00 100.3 F H 78 11 L 103/61 99 04/22/19 03:57 88 04/22/19 03:52 100.3 F H 86 20 H 106/67 97 Medical Necessity - Tobacco Use Smoking Status: Unknown if ever smoked Assessment/Plan All Active Problems (Last Reviewed 04/21/19 @ 15:[address] Esequiel Freitas MD) Pneumonia (Acute) Contusion of left knee, initial encounter (Acute) Contusion, knee (Acute) Patient is a 58-year-old gentleman with underlying history Down syndrome with cognitive deficit?dementia who presented with flulike symptoms and patient was found to be significantly hypoxic on admission. Patient is admitted in ICU on high flow oxygen. 1. Acute hypoxic respiratory failure : Chest x-ray independently reviewed. Shows pulmonary vascular congestion predominantly in lower lobes suggestive of mild CHF, bibasilar atelectasis/scarring. ?Clinical impression is probably secondary to pneumonia with [id number] organism with patient being resident of a care home. Patient was significantly hypoxic on admission with oxygen saturation in the mid 70s. Placed on a nonrebreather. Admitted to the intensive care unit. On broad-spectrum antibiotic vancomycin and Zosyn. Patient earlier had 1 dose of Unasyn and azithromycin in ED 2. Down syndrome ?Baseline. Patient gets involuntary movements. On Exelon patch, mirtazapine and paroxetine 3. Early onset dementia ?Supportive care in addition to Memantine and Rivastigmine 4. Seizure disorder ?On Depakote. 5. Hypothyroidism ?Patient is on levothyroxine 6. Dyslipidemia -patient is on statin therapy, continued at home dose 7. DVT prophylaxis ?Enoxaparin Advance planning; DNR CC arrest no intubation Microbiology Past 72 Hours 04/21/19 10:15 Mucosa - Nasopharyngeal Respiratory Panel (PCR) - Final 04/21/19 08:11 Mucosa - Nose Influenza Types A,B Direct FA (MARILUZ) - Final Laboratory Results 04/21/19 07:50: WBC 16.6 H, RBC 3.64 L, Hgb 13.7, Hct 39.8 L, MCV 109.3 H, MCH 37.6 H, MCHC 34.4, RDW Std Deviation 57.3 H, RDW Coeff of Tamia 14.0, Plt Count 142 L, MPV 12.5 H, Immature Gran % (Auto) 0.400, Neut % (Auto) 73.5 H, Lymph % (Auto) 12.3 L, Dale % (Auto) 13.2 H, Eos % (Auto) 0.1, Baso % (Auto) 0.5, Absolute Neuts (auto) 12.2 H, Absolute Lymphs (auto) 2.04, Nucleated RBC % 0, Differential Comment COMMENT, Diff Path Review June04/21/19 07:50: PT 17.1 H, INR 1.4, APTT 31.2 04/21/19 07:50: Sodium 143, Potassium 3.6, Chloride 109 H, Carbon Dioxide 32.0, Anion Gap 2 L, BUN 18, Creatinine 0.90, Estim Creat Clear Calc 79.72, Est GFR (MDRD) Af Amer 112, Est GFR (MDRD) Non-Af 92, BUN/Creatinine Ratio 20.0, Glucose 114 H, Calcium 8.4 L, Total Bilirubin 0.40, AST 25, ALT 23, Alkaline Phosphatase 68, Total Protein 7.3, Albumin 2.2 L, Globulin 5.1 H, Albumin/Globulin Ratio 0.4 L 04/21/19 07:50: Lactic Acid 1.7 04/21/19 07:50: B-Natriuretic Peptide 127.8 H 04/21/19 09:35: Magnesium 1.8, Total Bilirubin 0.40, Direct Bilirubin 0.14, AST 26, ALT 22, Alkaline Phosphatase 66, Total Protein 7.3, Albumin 2.3 L, Globulin 5.0 H 04/21/19 10:31: MRSA (PCR) Negative 04/21/19 12:37: Specimen Type ART, Sample Site R Radial, pH 7.40, Bicarbonate Actual 28.0 H, POC Total CO2 29, Base Excess 3 H, O2 Saturation 91 L, ABG pCO2 45.0, ABG pO2 62 L, Evin Test NA, O2 Delivery Device Nasal Can, Blood Gas Notified Whom ICU , Blood Gas Notified Time 1236 04/21/19 14:00: Troponin I < 0.015 04/21/19 17:00: Miscellaneous Test Pending 04/21/19 20:40: Urine Color Yellow, Urine Clarity Sl. Cloudy, Urine pH 6.0, Ur Specific Mullen 1.020, Urine Protein 30 H, Urine Glucose (UA) Normal, Urine Ketones 5 H, Urine Occult Blood 250 H, Urine Nitrite Negative, Urine Bilirubin Negative, Urine Urobilinogen Normal, Ur Leukocyte Esterase 25 H, Urine RBC 0-5 SEEN, Urine WBC 0-5 SEEN, Ur Squamous Epith Cells 0 SEEN, Urine Bacteria 0 SEEN, Urine Mucus 0 SEEN Clinical Impression(s) from Imaging Studies Chest X-Ray 04/21/19 07:42 IMPRESSION: Findings suggestive of a mild degree of CHF with bibasilar atelectasis superimposed on mild degree of scarring. Inpatient E&M: 19776 Subs Hosp L3
[2019-04-22] MEDS: Dext 5%-0.45% NS 1,000 ML 100 ML IV ×2 (08:21→18:38)
[2019-04-22 08:53] LABS: Absolute Neutrophil Count 19.5 X10^3/uL (2.0-7.7); Basophil# 0.18 X10^3/uL; Basophil% 0.8 % (0-1); Eosinophil# 0.02 X10^3/uL; Eosinophils% 0.1 % (0-5); Hematocrit 34.9 % (40-54); Hemoglobin 11.7 g/dL (13.0-16.5); Lymphocyte % 6.8 % (19-41); Mean Corp Hgb Conc 33.5 g/dL (32-36); Mean Corpuscular Hgb 37.3 pg (27.0-32.0); Mean Corpuscular Volume 111.1 fL (80-94); Mean Platelet Vol. 13.6 fl (6.2-12.0); Monocyte# 1.82 X10^3/uL; Monocyte% 7.8 % (0-10); NRBC Flagged by Analyzer 0 % (0-5); Neutrophil # 19.51 X10^3/uL (2.7-7.7); Neutrophil % 83.1 % (47-70); POSITIVE COUNT YES; POSITIVE DIFFERENTIAL YES; POSITIVE MORPHOLOGY YES; Platelet Count 104 K/mm3 (150-450); RBC Distribution Width CV 14.6 % (11.6-14.6); RBC Distribution Width SD 59.9 fl (35.1-43.9); Red Blood Count 3.14 M/mm3 (4.6-6.2); White Blood Count 23.5 K/mm3 (4.4-11.0)
[2019-04-22 08:54] LABS: Differential Indicated SCAN CRITERIA MET
[2019-04-22 09:09] LABS: Anion Gap 0 (5-15); BUN 16 mg/dL (7-18); BUN/Creat Ratio 19.2 RATIO (10-20); Chloride 115 mmol/L (98-107); Creatinine, Serum 0.83 mg/dL (0.70-1.30); EST Glomerular Filtration Rate 101 mL/min (>60); Est Glom Filt Rate - Afr Amer 122 mL/min (>60); Estimated Creatinine Clearance 83.21 ml/min; Glucose 122 mg/dL (74-106); Potassium 4.7 mmol/L (3.5-5.1); Sodium Level 146 mmol/L (136-145)
[2019-04-22 09:39] LABS: Pathologist Review Reviewed
[2019-04-22] MEDS: Timolol 0.5% 5ML OPTH.BTL 1 DRP RIGHT EYE ×2 (10:12→21:07)
[2019-04-22] MEDS: Enoxaparin 40 MG/0.4 ML Syringe SC (10:13)
--- NOTE | 2019-04-22 16:24 | CPS ---
Pulse ox not reading correctly. Pt moving continuously causing inaccurate reading.
--- NOTE | 2019-04-22 19:57 | CPS ---
PATIENT RECIEVED PRN ALBUTEROL WITH IPV/ SALINE DUE TO SOB.
--- NOTE | 2019-04-22 22:25 | CPS ---
rt called to for prn albuterol due to sob.
[2019-04-22] MEDS: LORazepam 2 MG/ML Syringe 0.5 MG IV (23:18)
--- NOTE | 2019-04-22 23:31 | CPS ---
NURSING INFORMED DR. NGUYEN OF LOW SP02 ON HIGH FLOW NC. DR. NGUYEN INFORMED NURSING TO START BIPAP. PATIENT PLACED ON IPAP 14 EPAP 8 RR 12 100%
[2019-04-23] VITALS (13 sets, daily range): BP systolic 74–175; BP diastolic 38–96; PULSE 100–135; RESP 12–36; TEMP 35.8–38.2; O2SAT 82–97
--- NOTE | 2019-04-23 00:09 | PCM.HOSP.N ---
Hospitalist Note Discussed patient status with POA as she initially was consideration of transitioning his status to encompass more aggressive measures; however, following discussion of patient current status, underlying comorbidities and quality of life in general as well as CODE STATUS differences including DNR CCA, no intubation, DNR CCA with intubation, DNR CC, full code, final current plan to continue current status of DNR CCA no intubation. Updated her that he is tolerating BiPAP currently and will continue this mode of care to which she was amenable.
--- NOTE | 2019-04-23 03:16 | CPS ---
POST VEST THERAPY, RT NT SUCTIONED PATIENT TIMES 1 WITH LARGE AMOUNT OF BROWN TINGED SECRETIONS REMOVED. NO ADVERSE REACTION NOTED.
--- NOTE | 2019-04-23 03:17 | CPS ---
ICU NURSE NOTIFIED DR. NGUYEN OF PATIENTS SPO2 OF 84-85% ON CURRENT BIPAP SETTINGS OF IPAP 14 EPAP 8 RR 12 100%. NURSING INFORMED RT THAT DR. NGUYEN IS ORDERING CHEST VEST AND TO MAINTAIN CURRENT BIPAP SETTINGS AT THIS TIME. NO OTHER RT ORDERS GIVEN.
[2019-04-23] MEDS: Vancomycin IV 1,000 MG/200 ML BAG 200 MG IV (03:27)
--- NOTE | 2019-04-23 04:42 | PCM.RX.CS ---
Consult Pharmacy has been consulted to manage selected antiobiotic: Vancomycin Type of Consult: Follow-up Labs: Sodium 146 mmol/L (136-145) H 04/22/19 08:15 Potassium 4.7 mmol/L (3.5-5.1) 04/22/19 08:15 Chloride 115 mmol/L (98-107) H 04/22/19 08:15 Carbon Dioxide 31.0 mmol/L (21.0-32.0) 04/22/19 08:15 Anion Gap 0 (5-15) L 04/22/19 08:15 BUN 16 mg/dL (7-18) 04/22/19 08:15 Creatinine 0.83 mg/dL (0.70-1.30) 04/22/19 08:15 Est GFR (MDRD) Af Amer 122 mL/min (>60) 04/22/19 08:15 Est GFR (MDRD) Non-Af 101 mL/min (>60) 04/22/19 08:15 BUN/Creatinine Ratio 19.2 RATIO (10-20) 04/22/19 08:15 Glucose 122 mg/dL (74-106) H 04/22/19 08:15 Microbiology: Microbiology 04/21/19 22:50 Urine Catheter - Panchal Legionella Antigen - Final 04/21/19 22:50 Urine Catheter - Panchal Streptococcus pneumoniae Antigen (M - Final 04/21/19 10:15 Mucosa - Nasopharyngeal Respiratory Panel (PCR) - Final 04/21/19 08:11 Mucosa - Nose Influenza Types A,B Direct FA (MARILUZ) - Final Goal Trough: 15-20 mcg/mL Pharmacy Plan for Drug Dosing: Pharmacy Service will continue to monitor and adjust dosing as required. LABS NOT DRAWN, REORDERED TROUGH FOR NEXT DOSE Follow-Up Labs: Trough Vancomycin Labs to be done on [date and time ordered]: 04/22 @ 1236
[2019-04-23 05:05] LABS: Hematocrit 43.4 % (40-54); Hemoglobin 14.1 g/dL (13.0-16.5); Mean Corp Hgb Conc 32.5 g/dL (32-36); Mean Corpuscular Hgb 37.6 pg (27.0-32.0); Mean Corpuscular Volume 115.7 fL (80-94); Mean Platelet Vol. 13.7 fl (6.2-12.0); POSITIVE COUNT YES; POSITIVE DIFFERENTIAL YES; POSITIVE MORPHOLOGY YES; Platelet Count 148 K/mm3 (150-450); RBC Distribution Width CV 14.8 % (11.6-14.6); RBC Distribution Width SD 63.7 fl (35.1-43.9); Red Blood Count 3.75 M/mm3 (4.6-6.2)
[2019-04-23 05:10] LABS: Differential Indicated MANUAL DIFF; White Blood Count 34.7 K/mm3 (4.4-11.0)
[2019-04-23 05:21] LABS: Anion Gap 2 (5-15); BUN 18 mg/dL (7-18); BUN/Creat Ratio 18.4 RATIO (10-20); Calcium,Total 8.4 mg/dL (8.5-10.1); Chloride 111 mmol/L (98-107); Creatinine, Serum 0.98 mg/dL (0.70-1.30); EST Glomerular Filtration Rate 84 mL/min (>60); Est Glom Filt Rate - Afr Amer 102 mL/min (>60); Estimated Creatinine Clearance 70.48 ml/min; Glucose 110 mg/dL (74-106); Potassium 4.2 mmol/L (3.5-5.1); Sodium Level 145 mmol/L (136-145)
[2019-04-23 05:50] LABS: Basophil 1 % (0-1); Lymphocyte 5 % (19-41); Metamyelocyte 6 % (0-1); Monocyte 4 % (0-10); Neutrophil-Band 44 % (0-5); Neutrophil-Segmented 40 % (47-70); Total Cells Counted 100 (MANUAL DIFF)
[2019-04-23 05:53] LABS: Absolute Lymphocyte Count 1.74 X10^3/uL (0.83-4.51); Absolute Neutrophil Count 29.1 X10^3/uL (2.0-7.7); Lymphocyte # 1.74 X10^3/ul (4.0); Neutrophil # 29.15 X10^3/uL (2.7-7.7)
[2019-04-23 05:54] LABS: Platelet Estimate ADEQUATE (ADEQ)
[2019-04-23 06:01] LABS: Macrocytosis 3+
--- NOTE | 2019-04-23 06:22 | PN_ITS ---
Subjective: The patient was seen and examined at the bedside this morning. Events from the last 24 hours have been reviewed. Overnight, the patient was febrile to 101 ?F. This morning, however, he appears to be hypothermic with a current temperature of 96.6 ?F. The patient remains tachycardic, but is hemodynamically stable. Last evening, the patient decompensated from a respiratory perspective, likely secondary to mucous plugging in the setting of a weak cough. Both myself and the overnight hospitalist spoke with the patient's family to update them on the patient's clinical state. His CODE STATUS remains DNR CCA without intubation. The patient did have to be transition from Airvo heated high flow to BiPAP last evening. He currently has an FiO2 requirement of 100%. His white blood cell count has also increased to 35,000. The patient remains on both Zosyn and vancomycin. The patient is more lethargic this morning, only responsive to pain ful stimulation. Objective: The patient's most recent lab work, culture data and imaging studies have all been personally reviewed. Respiratory viral panel was negative. Strep and urine Legionella antigens were negative. Blood and urine cultures are pending. COVID19 testing is pending. Surface echocardiogram revealed normal LV size with an ejection fraction of 55%. General: - - More toxic in appearance this morning than previous. Lethargic and minimally responsive. HEENT: Atraumatic, Normocephalic Oral: Dry Mucosa, - - BiPAP mask in place Neck: Supple, No Nodes, Trachea Midline Lungs: Diminished, Rhonchi, Tachypneic Cardiovascular: Normal S1, Normal S2, No murmurs, Tachycardic Abdomen: Bowel Sounds Present, Soft, Non Tender Extremities: No clubbing, No cyanosis, No edema Skin: No breakdown Musculoskeletal: No Tenderness to Palpation of Joints or Extremities Lymphatic: No Cervical, Supraclavicular, or Inguinal Adenopathy Neurological: - - No focal deficits. Unable to assess neurologic status given lethargy. Vital Signs Temp Pulse Resp BP Pulse Ox 96.6 F L 117 H 17 149/96 H 89 04/23/19 06:00 04/23/19 06:00 04/23/19 06:00 04/23/19 06:00 04/23/19 06:00 Oxygen Flow Rate (L/min) 15 Oxygen Delivery Method Bi-pap Weight: 155 lb 13.869 oz Body Mass Index (BMI) 25.2 Intake and Output for Last 24 Hours 04/21/19 04/22/19 04/23/19 23:59 23:59 23:59 Intake Total 2334.5 / 2334.5 3167.5 / 3222.5 1170 / 1170 Output Total 0 / 200 950 / 1100 300 / 300 Balance 2334.5 / 2134.5 2217.5 / 2122.5 870 / 870 Labs (Last 48 Hours) 04/21/19 04/21/19 04/21/19 07:50 07:50 07:50 WBC 16.6 H RBC 3.64 L Hgb 13.7 Hct 39.8 L MCV 109.3 H MCH 37.6 H MCHC 34.4 RDW Std Deviation 57.3 H RDW Coeff of Tamia 14.0 Plt Count 142 L MPV 12.5 H Immature Gran % (Auto) 0.400 Neut % (Auto) 73.5 H Lymph % (Auto) 12.3 L Keith % (Auto) 13.2 H Eos % (Auto) 0.1 Baso % (Auto) 0.5 Absolute Neuts (auto) 12.2 H Absolute Lymphs (auto) 2.04 Total Counted Neutrophils % (Manual) Band Neutrophils % Lymphocytes % (Manual) Monocytes % (Manual) Basophils % (Manual) Metamyelocytes % Nucleated RBC % 0 Differential Comment COMMENT Diff Path Review Reviewed Platelet Estimate Macrocytosis PT 17.1 H INR 1.4 APTT 31.2 Specimen Type Sample Site pH Bicarbonate Actual POC Total CO2 Base Excess O2 Saturation ABG pCO2 ABG pO2 Evin Test O2 Delivery Device Blood Gas Notified Whom Blood Gas Notified Time Sodium 143 Potassium 3.6 Chloride 109 H Carbon Dioxide 32.0 Anion Gap 2 L BUN 18 Creatinine 0.90 Estim Creat Clear Calc 79.72 Est GFR (MDRD) Af Amer 112 Est GFR (MDRD) Non-Af 92 BUN/Creatinine Ratio 20.0 Glucose 114 H Lactic Acid Calcium 8.4 L Magnesium Total Bilirubin 0.40 Direct Bilirubin AST 25 ALT 23 Alkaline Phosphatase 68 Troponin I B-Natriuretic Peptide Total Protein 7.3 Albumin 2.2 L Globulin 5.1 H Albumin/Globulin Ratio 0.4 L Urine Color Urine Clarity Urine pH Ur Specific [place] Urine Protein Urine Glucose (UA) Urine Ketones Urine Occult Blood Urine Nitrite Urine Bilirubin Urine Urobilinogen Ur Leukocyte Esterase Urine RBC Urine WBC Ur Squamous Epith Cells Urine Bacteria Urine Mucus MRSA (PCR) Miscellaneous Test 04/21/19 04/21/19 04/21/19 07:50 07:50 09:35 WBC RBC Hgb Hct MCV MCH MCHC RDW Std Deviation RDW Coeff of Tamia Plt Count MPV Immature Gran % (Auto) Neut % (Auto) Lymph % (Auto) Keith % (Auto) Eos % (Auto) Baso % (Auto) Absolute Neuts (auto) Absolute Lymphs (auto) Total Counted Neutrophils % (Manual) Band Neutrophils % Lymphocytes % (Manual) Monocytes % (Manual) Basophils % (Manual) Metamyelocytes % Nucleated RBC % Differential Comment Diff Path Review Platelet Estimate Macrocytosis PT INR APTT Specimen Type Sample Site pH Bicarbonate Actual POC Total CO2 Base Excess O2 Saturation ABG pCO2 ABG pO2 Evin Test O2 Delivery Device Blood Gas Notified Whom Blood Gas Notified Time Sodium Potassium Chloride Carbon Dioxide Anion Gap BUN Creatinine Estim Creat Clear Calc Est GFR (MDRD) Af Amer Est GFR (MDRD) Non-Af BUN/Creatinine Ratio Glucose Lactic Acid 1.7 Calcium Magnesium 1.8 Total Bilirubin 0.40 Direct Bilirubin 0.14 AST 26 ALT 22 Alkaline Phosphatase 66 Troponin I B-Natriuretic Peptide 127.8 H Total Protein 7.3 Albumin 2.3 L Globulin 5.0 H Albumin/Globulin Ratio Urine Color Urine Clarity Urine pH Ur Specific [place] Urine Protein Urine Glucose (UA) Urine Ketones Urine Occult Blood Urine Nitrite Urine Bilirubin Urine Urobilinogen Ur Leukocyte Esterase Urine RBC Urine WBC Ur Squamous Epith Cells Urine Bacteria Urine Mucus MRSA (PCR) Miscellaneous Test 04/21/19 04/21/19 04/21/19 10:31 12:37 14:00 WBC RBC Hgb Hct MCV MCH MCHC RDW Std Deviation RDW Coeff of Tamia Plt Count MPV Immature Gran % (Auto) Neut % (Auto) Lymph % (Auto) Keith % (Auto) Eos % (Auto) Baso % (Auto) Absolute Neuts (auto) Absolute Lymphs (auto) Total Counted Neutrophils % (Manual) Band Neutrophils % Lymphocytes % (Manual) Monocytes % (Manual) Basophils % (Manual) Metamyelocytes % Nucleated RBC % Differential Comment Diff Path Review Platelet Estimate Macrocytosis PT INR APTT Specimen Type ART Sample Site R Radial pH 7.40 Bicarbonate Actual 28.0 H POC Total CO2 29 Base Excess 3 H O2 Saturation 91 L ABG pCO2 45.0 ABG pO2 62 L Evin Test NA O2 Delivery Device Nasal Can Blood Gas Notified Whom ICU MD Blood Gas Notified Time 1236 Sodium Potassium Chloride Carbon Dioxide Anion Gap BUN Creatinine Estim Creat Clear Calc Est GFR (MDRD) Af Amer Est GFR (MDRD) Non-Af BUN/Creatinine Ratio Glucose Lactic Acid Calcium Magnesium Total Bilirubin Direct Bilirubin AST ALT Alkaline Phosphatase Troponin I < 0.015 B-Natriuretic Peptide Total Protein Albumin Globulin Albumin/Globulin Ratio Urine Color Urine Clarity Urine pH Ur Specific [place] Urine Protein Urine Glucose (UA) Urine Ketones Urine Occult Blood Urine Nitrite Urine Bilirubin Urine Urobilinogen Ur Leukocyte Esterase Urine RBC Urine WBC Ur Squamous Epith Cells Urine Bacteria Urine Mucus MRSA (PCR) Negative Miscellaneous Test 04/21/19 04/21/19 04/22/19 17:00 20:40 08:15 WBC 23.5 H RBC 3.14 L Hgb 11.7 L Hct 34.9 L MCV 111.1 H MCH 37.3 H MCHC 33.5 RDW Std Deviation 59.9 H RDW Coeff of Tamia 14.6 Plt Count 104 L MPV 13.6 H Immature Gran % (Auto) 1.400 H Neut % (Auto) 83.1 H Lymph % (Auto) 6.8 L Keith % (Auto) 7.8 Eos % (Auto) 0.1 Baso % (Auto) 0.8 Absolute Neuts (auto) 19.5 H Absolute Lymphs (auto) 1.60 Total Counted Neutrophils % (Manual) Band Neutrophils % Lymphocytes % (Manual) Monocytes % (Manual) Basophils % (Manual) Metamyelocytes % Nucleated RBC % 0 Differential Comment COMMENT Diff Path Review May foll Platelet Estimate Macrocytosis PT INR APTT Specimen Type Sample Site pH Bicarbonate Actual POC Total CO2 Base Excess O2 Saturation ABG pCO2 ABG pO2 Evin Test O2 Delivery Device Blood Gas Notified Whom Blood Gas Notified Time Sodium Potassium Chloride Carbon Dioxide Anion Gap BUN Creatinine Estim Creat Clear Calc Est GFR (MDRD) Af Amer Est GFR (MDRD) Non-Af BUN/Creatinine Ratio Glucose Lactic Acid Calcium Magnesium Total Bilirubin Direct Bilirubin AST ALT Alkaline Phosphatase Troponin I B-Natriuretic Peptide Total Protein Albumin Globulin Albumin/Globulin Ratio Urine Color Yellow Urine Clarity Sl. Cloudy Urine pH 6.0 Ur Specific [place] 1.020 Urine Protein 30 H Urine Glucose (UA) Normal Urine Ketones 5 H Urine Occult Blood 250 H Urine Nitrite Negative Urine Bilirubin Negative Urine Urobilinogen Normal Ur Leukocyte Esterase 25 H Urine RBC 0-5 SEEN Urine WBC 0-5 SEEN Ur Squamous Epith Cells 0 SEEN Urine Bacteria 0 SEEN Urine Mucus 0 SEEN MRSA (PCR) Miscellaneous Test Pending 04/22/19 04/23/19 04/23/19 08:15 04:30 04:30 WBC 34.7 H* RBC 3.75 L Hgb 14.1 Hct 43.4 MCV 115.7 H MCH 37.6 H MCHC 32.5 RDW Std Deviation 63.7 H RDW Coeff of Tamia 14.8 H Plt Count 148 L MPV 13.7 H Immature Gran % (Auto) Neut % (Auto) Not Reportable Lymph % (Auto) Keith % (Auto) Eos % (Auto) Baso % (Auto) Absolute Neuts (auto) 29.1 H Absolute Lymphs (auto) 1.74 Total Counted 100 Neutrophils % (Manual) 40 L Band Neutrophils % 44 H Lymphocytes % (Manual) 5 L Monocytes % (Manual) 4 Basophils % (Manual) 1 Metamyelocytes % 6 H Nucleated RBC % Differential Comment Diff Path Review May foll Platelet Estimate ADEQUATE Macrocytosis 3+ PT INR APTT Specimen Type Sample Site pH Bicarbonate Actual POC Total CO2 Base Excess O2 Saturation ABG pCO2 ABG pO2 Evin Test O2 Delivery Device Blood Gas Notified Whom Blood Gas Notified Time Sodium 146 H 145 Potassium 4.7 4.2 Chloride 115 H 111 H Carbon Dioxide 31.0 32.0 Anion Gap 0 L 2 L BUN 16 18 Creatinine 0.83 0.98 Estim Creat Clear Calc 83.21 70.48 Est GFR (MDRD) Af Amer 122 102 Est GFR (MDRD) Non-Af 101 84 BUN/Creatinine Ratio 19.2 18.4 Glucose 122 H 110 H Lactic Acid Calcium 8.0 L 8.4 L Magnesium Total Bilirubin Direct Bilirubin AST ALT Alkaline Phosphatase Troponin I B-Natriuretic Peptide Total Protein Albumin Globulin Albumin/Globulin Ratio Urine Color Urine Clarity Urine pH Ur Specific [place] Urine Protein Urine Glucose (UA) Urine Ketones Urine Occult Blood Urine Nitrite Urine Bilirubin Urine Urobilinogen Ur Leukocyte Esterase Urine RBC Urine WBC Ur Squamous Epith Cells Urine Bacteria Urine Mucus MRSA (PCR) Miscellaneous Test Microbiology 04/21/19 22:50 Urine Catheter - Panchal Legionella Antigen - Final 04/21/19 22:50 Urine Catheter - Panchal Streptococcus pneumoniae Antigen (M - Final 04/21/19 10:15 Mucosa - Nasopharyngeal Respiratory Panel (PCR) - Final 04/21/19 08:11 Mucosa - Nose Influenza Types A,B Direct FA (MARILUZ) - Final Clinical Impression(s) from Imaging Studies Chest X-Ray 04/21/19 07:42 IMPRESSION: Findings suggestive of a mild degree of CHF with bibasilar atelectasis superimposed on mild degree of scarring. Electronically Signed: Angel Huntley, at 8:26 EDT , Service support , Medical Necessity - Tobacco Use Smoking Status: Unknown if ever smoked Assessment/Plan All Active Problems (Last Reviewed 04/21/19 @ 15:[address] Esequiel Freitas MD) Pneumonia (Acute) Contusion of left knee, initial encounter (Acute) Contusion, knee (Acute) RECOMMENDATIONS: 1. Continue empiric antimicrobials. 2. Continue BiPAP and wean FiO2 to maintain oxygen saturations at or above 90%. 3. Continue aggressive bronchopulmonary hygiene with IS, PEP and IPV therapy. 4. Continue gentle IV fluid hydration to offset insensible losses. 5. Continue appropriate DVT prophylaxis. 6. Await results of COVID 19 testing. 7. Obtain arterial blood gas. IMPRESSIONS: 1. Acute hypoxemic respiratory failure The patient does have radiographic evidence of a right lower lobe airspace opacity and a history concerning for aspiration events. Respiratory viral panel was negative. The patient is quite debilitated with a very weak cough. Despite aggressive bronchopulmonary hygiene and treatment with broad-spectrum antimicrobials, the patient has continued to decompensate. He is currently being maintained on BiPAP with an FiO2 requirement of 100%. He does continue to have mucus plugging events and has required NT suctioning. The patient is a DNR CCA without intubation following discussion with the patient's family. We will plan to continue current supportive measures as noted. Maintain appropriate precautions while awaiting results of COVID19 testing. 2. Worsening encephalopathy Concerned that the patient may becoming hypercarbic, given his current respiratory status. Will obtain arterial blood gas. However, the patient is currently on maximal BiPAP settings with an FiO2 of 100%. 3. Baseline MRDD/dementia/hypothyroidism/hyperlipidemia Complicates care, management, recovery and prognosis. P.o. medications are on hold due to n.p.o. status. The patient will require speech therapy evaluation prior to advancing diet. Accordingly, dextrose containing supplemental IV fluids will be continued for now. 4. CODE status: DNR CCA, no intubation. Concern for further clinical decompensation over the next 24 hours. Will discuss goals of care with the patient's family once again, with possible consideration in transfer of goals to comfort care measures. UPDATE: Blood gas was obtained this morning and did reveal that the patient is retaining CO2. As noted above, the patient is more lethargic with further clinical decompensation overnight. I called and spoke with the patient's sister, Jessica, this morning and updated her on the patient's worsening clinical state. In light of the patient's further decompensation, despite aggressive care, the patient's sister is now wishing to pursue comfort care measures. Accordingly, CODE STATUS orders have been updated to DNR comfort care. All nonessential interventions and medications will be discontinued. Anxiolytics and pain medications will be started to provide comfort to the patient. TIME: 40 minutes of critical care time, independent of procedures, was spent addressing the patient's acute hypoxemic respiratory failure, probable community-acquired versus aspiration pneumonia, hypercarbic encephalopathy, baseline MRDD/dementia, review of all data and collaboration with the care team. ([id number], [phone]) [id number] Critical care first hour
[2019-04-23] MEDS: 0.9% Saline Lock 10 ML Syringe IV (09:19)
[2019-04-23] MEDS: Morphine 2 MG/ML Syringe IV (09:19)
[2019-04-23] MEDS: LORazepam 2 MG/ML Syringe IV (09:19)
[2019-04-23] MEDS: Dext 5%-0.45% NS 1,000 ML 100 ML IV (09:20)
[2019-04-23 09:38] LABS: Allen Test POS; Blood Gas Specimen Type ART; SITE L RADIAL
[2019-04-23 09:39] LABS: EPAP 8; FI02 100; IPAP 14; O2 Delivery Device Bi Pap; Time Given 751
[2019-04-23 09:41] LABS: Base Excess 2 mmol/L (-2 to +2); Bicarbonate 29.9 mmol/L (22-26); PO2 51 mmHG (75-100); SO2 75 % (95-99); Total Carbon Dioxide 32 mmol/L; pCO2 76.9 mmHg (35-45)
--- NOTE | 2019-04-23 10:28 | CM.UR ---
Participated in interdisciplinary rounds this am. This patient is comfort care at this time. Valerie Casas RN, CCM.
--- NOTE | 2019-04-23 10:40 | NURSING ---
Pt noted to be have agonal breaths on assessment. This RN and Jonathan Gabriel RN verified that patient was found to be without a palpable or audible pulse. No spontaneous respirations were noted. Dr. Malcom Massey and Dr. Brian Saavedra, as well as nursing pipeline maintenance supervisor made aware at this time.
--- NOTE | 2019-04-23 11:00 | PCM.PN.HOSP ---
Reason for Visit: Follow-up acute hypoxic respiratory failure and pneumonia, high FiO2 requirement, confused and disoriented Objective: Patient overall deteriorated over the course of last 18 hours. Fever T-max 100.8 Fahrenheit. Tachycardic, blood pressure low 74/52. Patient is not responding, lethargic, GCS 6. Currently on 100% FiO2, BiPAP with labored breathing, respiratory rate 22 to 32/min. Family was informed about the duration of the condition in the evening and at nighttime by the professional soccer player and nighttime hospitalist. CODE STATUS was again discussed and changed to DNR comfort care. Vitals/I&O's: Vital Signs Temp Pulse Resp BP Pulse Ox 96.4 F L 117 H 20 H 115/79 93 04/23/19 06:59 04/23/19 06:59 04/23/19 06:59 04/23/19 06:59 04/23/19 06:59 Oxygen Flow Rate (L/min) 15 Oxygen Delivery Method Bi-pap Weight: 155 lb 13.869 oz Body Mass Index (BMI) 25.2 Intake and Output for Last 24 Hours 04/21/19 04/22/19 04/23/19 23:59 23:59 23:59 Intake Total 2334.5 / 2334.5 3504.17 / 3559.17 455 / 455 Output Total 0 / 200 950 / 1100 300 / 300 Balance 2334.5 / 2134.5 2554.17 / 2459.17 155 / 155 General: Lethargic, - - Withdrawing lower extremity. GCS 6 HEENT: EOMI, - - Cornea is cloudy, pupil sluggish reacting Oral: Dry Mucosa Neck: Supple, No JVD Lungs: Diminished, Rhonchi, Short of Breath, Tachypneic, Using Accessory Muscles Cardiovascular: Normal S1, Normal S2, No murmurs, Tachycardic Abdomen: Bowel Sounds Present, Soft, Non Tender, Non-Distended Extremities: No edema, Capillary Refill Less than 3 Seconds Musculoskeletal: Arthritic Changes Neurological: - - Not responding and not follow command. Plantar upgoing, Babinski sign positive Flexor response to touch lower extremities Microbiology Past 72 Hours 04/21/19 22:50 Urine Catheter - Panchal Legionella Antigen - Final 04/21/19 22:50 Urine Catheter - Panchal Streptococcus pneumoniae Antigen (M - Final 04/21/19 10:15 Mucosa - Nasopharyngeal Respiratory Panel (PCR) - Final 04/21/19 08:11 Mucosa - Nose Influenza Types A,B Direct FA (MARILUZ) - Final Laboratory Results 04/21/19 07:50: Diff Path Review Reviewed 04/22/19 08:15: WBC 23.5 H, RBC 3.14 L, Hgb 11.7 L, Hct 34.9 L, MCV 111.1 H, MCH 37.3 H, MCHC 33.5, RDW Std Deviation 59.9 H, RDW Coeff of Tamia 14.6, Plt Count 104 L, MPV 13.6 H, Immature Gran % (Auto) 1.400 H, Neut % (Auto) 83.1 H, Lymph % (Auto) 6.8 L, [place] % (Auto) 7.8, Eos % (Auto) 0.1, Baso % (Auto) 0.8, Absolute Neuts (auto) 19.5 H, Absolute Lymphs (auto) 1.60, Nucleated RBC % 0, Differential Comment COMMENT, Diff Path Review May foll 04/22/19 08:15: Sodium 146 H, Potassium 4.7, Chloride 115 H, Carbon Dioxide 31.0, Anion Gap 0 L, BUN 16, Creatinine 0.83, Estim Creat Clear Calc 83.21, Est GFR (MDRD) Af Amer 122, Est GFR (MDRD) Non-Af 101, BUN/Creatinine Ratio 19.2, Glucose 122 H, Calcium 8.0 L 04/23/19 04:30: WBC 34.7 H*, RBC 3.75 L, Hgb 14.1, Hct 43.4, MCV 115.7 H, MCH 37.6 H, MCHC 32.5, RDW Std Deviation 63.7 H, RDW Coeff of Tamia 14.8 H, Plt Count 148 L, MPV 13.7 H, Neut % (Auto) Not Reportable, Absolute Neuts (auto) 29.1 H, Absolute Lymphs (auto) 1.74, Total Counted 100, Neutrophils % (Manual) 40 L, Band Neutrophils % 44 H, Lymphocytes % (Manual) 5 L, Monocytes % (Manual) 4, Basophils % (Manual) 1, Metamyelocytes % 6 H, Differential Comment , Diff Path Review June, Platelet Estimate ADEQUATE, Macrocytosis 3+ 04/23/19 04:30: Sodium 145, Potassium 4.2, Chloride 111 H, Carbon Dioxide 32.0, Anion Gap 2 L, BUN 18, Creatinine 0.98, Estim Creat Clear Calc 70.48, Est GFR (MDRD) Af Amer 102, Est GFR (MDRD) Non-Af 84, BUN/Creatinine Ratio 18.4, Glucose 110 H, Calcium 8.4 L Current Medications Acetaminophen (Tylenol) 650 mg PO Q6H PRN PRN PRN Reason: Pain Score 1-10/Temp > 100.7 F Acetaminophen (Tylenol) 650 mg RECTAL Q6H PRN PRN PRN Reason: HEADACHE/FEVER (T>100F) Last Admin: 04/21/19 17:00 Dose: 650 mg Documented by: Al Hydroxide/Mg Hydroxide (Mylanta Ii) 30 ml PO Q6H PRN PRN PRN Reason: Gastric Burning Albuterol Sulfate (Ventolin Aerosols) 2.5 mg INHALATION Q2H PRN PRN PRN Reason: SOB/Wheezing Last Admin: 04/22/19 19:53 Dose: 2.5 mg Documented by: Dextrose (D50w Syringe) 0 gm IV X1 PRN; Protocol PRN Reason: Hypoglycemia Divalproex Sodium (Depakote) 500 mg PO BID [facility] Last Admin: 04/22/19 20:29 Dose: Not Given Documented by: Docusate Sodium (Colace) 100 mg PO DAILY [facility] Last Admin: 04/22/19 10:14 Dose: Not Given Documented by: Enoxaparin Sodium (Lovenox) 40 mg SC DAILY [facility] Last Admin: 04/22/19 10:13 Dose: 40 mg Documented by: Glucagon () 1 mg IM .X1 PRN PRN Reason: Hypoglycemia Guaifenesin (Robitussin) 10 ml PO Q4H PRN PRN PRN Reason: COUGH Vancomycin IV Pharmacy to Dose (1 ea/ Sodium Chloride) 500 mls @ 250 mls/hr IV X1 PRN; Protocol PRN Reason: Rx to Dose Piperacillin Sod/Tazobactam (Sod 3.375 gm/ Sodium Chloride) 50 mls @ 12.5 mls/hr IV Q8 [facility] Last Admin: 04/23/19 04:58 Dose: 12.5 mls/hr Documented by: Vancomycin HCl (Vancomycin) 1,000 mg in 200 mls @ 200 mls/hr IV Q12H [facility] Last Infusion: 04/23/19 05:44 Dose: Infused Documented by: Dextrose/Sodium Chloride () 1,000 mls @ 100 mls/hr IV .Q10H [facility] Last Infusion: 04/23/19 04:45 Dose: 100 mls/hr Documented by: Valproic Acid 500 mg/ Dextrose 55 mls @ 50 mls/hr IV BID [facility] Last Infusion: 04/23/19 00:00 Dose: Infused Documented by: Levothyroxine Sodium (Synthroid) 125 mcg PO DAILY@0600 [facility] Last Admin: 04/23/19 06:24 Dose: Not Given Documented by: Magnesium Hydroxide (Milk Of Magnesia) 30 ml PO DAILY PRN PRN PRN Reason: Constipation Melatonin (Melatonin) 3 mg PO QHS PRN PRN PRN Reason: INSOMNIA Memantine (Namenda) 10 mg PO BID [facility] Last Admin: 04/22/19 20:29 Dose: Not Given Documented by: Mirtazapine (Remeron) 7.5 mg PO QHS [facility] Last Admin: 04/22/19 20:29 Dose: Not Given Documented by: Ondansetron HCl (Zofran) 4 mg IV Q8H PRN PRN PRN Reason: NAUSEA/VOMITING Paroxetine HCl (Paxil) 40 mg PO DAILY [facility] Last Admin: 04/22/19 10:15 Dose: Not Given Documented by: Pravastatin Sodium (Pravachol) 20 mg PO QHS [facility] Last Admin: 04/22/19 20:29 Dose: Not Given Documented by: Promethazine HCl (Phenergan) 25 mg IM Q6H PRN PRN PRN Reason: Breakthrough Nausea/Vomiting Rivastigmine (Exelon Patch 4.6mg) 1 patch TD DAILY [facility] Last Admin: 04/22/19 12:18 Dose: 1 patch Documented by: Sodium Chloride () 10 - 40 ml IV UD PRN PRN Reason: SALINE FLUSH Throat Lozenges (Cepacol Sore Throat Lozenge) 1 lozenge MUCOUS MEM Q2H PRN PRN PRN Reason: SORE THROAT Timolol Maleate (Timoptic) 1 drop RIGHT EYE BID [facility] Last Admin: 04/22/19 21:07 Dose: 1 drop Documented by: STROKE Vital Signs/Narrative: Vital Signs Temp Pulse Resp BP Pulse Ox 04/23/19 06:59 96.4 F L 117 H 20 H 115/79 93 04/23/19 06:00 96.6 F L 117 H 17 149/96 H 89 04/23/19 05:00 97.3 F L 120 H 16 154/81 H 86 04/23/19 04:00 98.1 F 126 H 19 H 166/83 H 86 Medical Necessity - Tobacco Use Smoking Status: Unknown if ever smoked Assessment/Plan All Active Problems (Last Reviewed 04/21/19 @ 15:[address] Esequiel Freitas MD) Pneumonia (Acute) Contusion of left knee, initial encounter (Acute) Contusion, knee (Acute) Patient is a 58-year-old gentleman with underlying history Down syndrome with cognitive deficit?dementia who presented with flulike symptoms and patient was found to be significantly hypoxic on admission. Patient is admitted in ICU on high flow oxygen. 1. Acute hypoxic respiratory failure : Chest x-ray independently reviewed. Shows pulmonary vascular congestion predominantly in lower lobes suggestive of mild CHF, bibasilar atelectasis/scarring. ?Clinical impression is probably secondary to pneumonia with [id number] organism with patient being resident of a retirement. Patient was significantly hypoxic on admission with oxygen saturation in the mid 70s. Placed on a nonrebreather. Admitted to the intensive care unit. On broad-spectrum antibiotic vancomycin and Zosyn. Patient earlier had 1 dose of Unasyn and azithromycin in ED 04/23/2019: Continue antibiotic and respiratory support and measures as mentioned above. Oxygen support was changed to BiPAP last night. IV fluid hydration. Result of Covid 19 is pending. Currently on FiO2 100%. Patient had mucous plugging and required suctioning. Urine output 300 mL since midnight. 950 mL yesterday In the afternoon, patient got more unresponsive, unconscious, blood pressure dropped and oxygen requirement remains high 100% which was changed to nonrebreather mask. Patient blood pressure dropped, he became bradycardic and then PEA and asystole. patient at 10:34 AM on 04/23/2019 2. Down syndrome ?Baseline. Patient gets involuntary movements. On Exelon patch, mirtazapine and paroxetine 3. Early onset dementia ?Supportive care in addition to Memantine and Rivastigmine 4. Seizure disorder ?On Depakote. 5. Hypothyroidism ?Patient is on levothyroxine 6. Dyslipidemia -patient is on statin therapy, continued at home dose 7. DVT prophylaxis ?Enoxaparin Advance planning; DNR CC no intubation Microbiology Past 72 Hours 04/21/19 07:50 Blood Culture (Wb) - Anticubital Left Blood Culture - Preliminary No growth in 48 hours. 04/21/19 08:20 Blood Culture (Wb) - Left Forearm Blood Culture - Preliminary No growth in 48 hours. 04/21/19 22:50 Urine Catheter - Panchal Legionella Antigen - Final 04/21/19 22:50 Urine Catheter - Panchal Streptococcus pneumoniae Antigen (M - Final 04/21/19 10:15 Mucosa - Nasopharyngeal Respiratory Panel (PCR) - Final 04/21/19 08:11 Mucosa - Nose Influenza Types A,B Direct FA (MARILUZ) - Final Laboratory Results 04/21/19 07:50: Diff Path Review Reviewed 04/22/19 08:15: Differential Comment COMMENT, Diff Path Review Kati negron 04/23/19 04:30: WBC 34.7 H*, RBC 3.75 L, Hgb 14.1, Hct 43.4, MCV 115.7 H, MCH 37.6 H, MCHC 32.5, RDW Std Deviation 63.7 H, RDW Coeff of Tamia 14.8 H, Plt Count 148 L, MPV 13.7 H, Neut % (Auto) Not Reportable, Absolute Neuts (auto) 29.1 H, Absolute Lymphs (auto) 1.74, Total Counted 100, Neutrophils % (Manual) 40 L, Band Neutrophils % 44 H, Lymphocytes % (Manual) 5 L, Monocytes % (Manual) 4, Basophils % (Manual) 1, Metamyelocytes % 6 H, Differential Comment , Diff Path Review June, Platelet Estimate ADEQUATE, Macrocytosis 3+ 04/23/19 04:30: Sodium 145, Potassium 4.2, Chloride 111 H, Carbon Dioxide 32.0, Anion Gap 2 L, BUN 18, Creatinine 0.98, Estim Creat Clear Calc 70.48, Est GFR (MDRD) Af Amer 102, Est GFR (MDRD) Non-Af 84, BUN/Creatinine Ratio 18.4, Glucose 110 H, Calcium 8.4 L Clinical Impression(s) from Imaging Studies Chest X-Ray 04/21/19 07:42 IMPRESSION: Findings suggestive of a mild degree of CHF with bibasilar atelectasis superimposed on mild degree of scarring.
--- NOTE | 2019-04-23 11:53 | NURSING ---
Jessica Morse, pt's next of kin, was called by this RN and notified of time of . Request for skilled nursing was given to this RN. Emotional support was given and opportunity for questions was presented.
--- NOTE | 2019-04-23 14:13 | EXP.PCM_ITS ---
Preliminary Cause of Acute hypoxic respiratory failure probably secondary to bilateral pneumonia Date of Admission: 04/21/19 Date of : 04/23/19 - Principle Diagnosis 1. Acute hypoxic respiratory failure most likely secondary to bilateral pneumonia/with concern of aspiration pneumonia 2. Progressive worsening encephalopathy on baseline Down syndrome/MRDD 3. Seizure disorder Hospital Course Patient is a 58-year-old gentleman with underlying history Down syndrome with cognitive deficit?dementia who presented with flulike symptoms and patient was found to be significantly hypoxic on admission. Patient is admitted in ICU on high flow oxygen with preliminary diagnosis of acute hypoxic respiratory failure secondary to bilateral pneumonia/possible aspiration pneumonia. Patient was started on broad-spectrum antibiotic. Respiratory panel was negative and covid 19 PCR was sent, result pending. Patient continued to be on broad-spectrum antibiotic along with high flow oxygen support, changed to BiPAP, bronchopulmonary hygiene with regular suctioning. This was co-managed with industrial organizational psychologist. Patient advanced directive/CODE STATUS in the beginning was DNR CC with no intubation which was changed to DNR CC comfort care in the morning of 04/23/2019. Patient condition kept on worsening, got unresponsive and unconscious and then blood pressure dropped, oxygen requirement remained very high and then finally PEA, asystole and at 10:34 AM on 04/23/2019 Inpatient E&M: [id number] [facility]
[2019-04-25 10:44] LABS: Pathologist Review Reviewed
[2019-04-25 10:45] LABS: Pathologist Review Reviewed
== END 2019-04-23 10:34 | DRG 177 ==
LOC: ED 08:35 → ICU 09:13
PROVIDERS: Internal Medicine Critical Care Medicine; Internal Medicine Infectious Disease; Admitting Provider Internal Medicine; Emergency Provider Emergency Medicine; PCP Family Medicine Geriatric Medicine; Visit Provider Internal Medicine
DX: J69.0 Pneumonitis due to inhalation of food and vomit (principal); J96.01 Acute respiratory failure with hypoxia; G93.40 Encephalopathy, unspecified; Q90.9 Down syndrome, unspecified; F03.90 Unspecified dementia, unspecified severity, without behavioral disturbance, psychotic disturbance, mood disturbance, and anxiety; G40.909 Epilepsy, unspecified, not intractable, without status epilepticus; E03.9 Hypothyroidism, unspecified; E78.5 Hyperlipidemia, unspecified; Z66 Do not resuscitate
CPT/HCPCS: 31720; 36600; 71045; 80048; 80053; 80076; 81001; 82803; 83605; 83735; 83880; 84484; 85025; 85610; 85730; 87040; 87086; 87449; 87633; 87641; 87804; 93005; 93306; 94002; 94003; 94640; 94660; 94667; 94668; 99251; 99285; J7030; J7040; J7050; A4216; G0463; J0295; J7799